=== PATIENT | male | born 1935 | race Caucasian/White ===

== ENCOUNTER → 2016-07-11 | Outpatient (CLI) | payer MEDICARE ==
[2016-07-11 08:45] LABS: CH 28.2; CHCM 32.4; HCT 42.3 % (39.0-53.0); HDW 2.62; HGB 13.6 gm/dL (13.0-17.5); MCH 28.2 pg (25.0-35.0); MCHC 32.2 g/dL (31.0-37.0); MCV 87.5 fL (80.0-100.0); Mean Platelet Volume 7.9; RBC 4.83 m/uL (4.30-5.90); RDW 13.9 % (11.5-15.5); WBC 7.8 k/uL (3.8-10.6)
--- NOTE | 2016-07-11 08:51 | XR ---
EXAMINATION TYPE: XR chest 2V DATE OF EXAM: 07/11/2016 8:40 AM COMPARISON: Prior chest x-ray April 19, 2015 HISTORY: Asbestosis exposure. History of atrial fibri llation. Annual physical. TECHNIQUE: Frontal and lateral views of the chest are obtained. FINDINGS: Calcified pleural plaques are redemonstrated bilaterally. There is no focal air space opaci ty, pleural effusion, or pneumothorax seen. The cardiac silhouette size is within normal limits. Mul tilevel spurring and spine is present. Cholecystectomy clips are redemonstrated. IMPRESSION: Bilateral calcified pleural plaques are presumed on basis of prior asbestos exposure. No acute pulmonary process is seen. No significant change from prior study is noted.
[2016-07-11 09:04] LABS: Appearance,Urine Clear (Clear); Bilirubin,Urine Negative (Negative); Glucose,Urine (UA) Negative (Negative); Ketones,Urine Negative (Negative); Leukocyte Esterase,Urine Negative (Negative); Nitrite,Urine Negative (Negative); PH, Urine 5.5 (5.0-8.0); Protein,Urine Negative (Negative); Specific Gravity,Urine 1.017 (1.001-1.035); UA Billing (MACRO vs. MICRO) CHEM; Urobilinogen,Urine <2.0 mg/dL (<2.0)
[2016-07-11 09:20] LABS: ALT 21 U/L (21-72); AST 24 U/L (17-59); Alkaline Phosphatase 69 U/L (38-126); Anion Gap 9 mmol/L; Blood Urea Nitrogen 18 mg/dL (9-20); Calcium 9.5 mg/dL (8.4-10.2); Carbon Dioxide 30 mmol/L (22-30); Chloride 105 mmol/L (98-107); Cholesterol 157 mg/dL (<200); Glucose 99 mg/dL (74-99); HDL Cholesterol 56 mg/dL (40-60); Non-African American GFR(MDRD) >60 (>60 ml/min/1.73 sqM); Sodium 144 mmol/L (137-145); Total Bilirubin 0.7 mg/dL (0.2-1.3); Total Protein 7.5 g/dL (6.3-8.2); Triglycerides 160 mg/dL (<150)
== END | disposition home or self-care (01) ==
LOC: LABWHC1 07:37
PROVIDERS: ATTEND Internal Medicine
DX: Z00.00 Encounter for general adult medical examination without abnormal findings (principal); I11.9 Hypertensive heart disease without heart failure; E78.2 Mixed hyperlipidemia; R35.0 Frequency of micturition
CPT/HCPCS: 36415; 71020; 80053; 80061; 81003; 84439; 84443; 85027

== ENCOUNTER → 2016-10-25 | Outpatient (CLI) | payer MEDICARE ==
[2016-10-25 07:20] LABS: Basophils % (A) 1 %; CH 27.9; CHCM 32.2; Eosinophils # (A) 0.4 k/uL (0-0.7); Eosinophils % (A) 5 %; HCT 42.6 % (39.0-53.0); HDW 2.67; HGB 13.9 gm/dL (13.0-17.5); Luc # (Auto) 0.19; Luc % (Auto) 2; Lymphocytes # (A) 1.7 k/uL (1.0-4.8); Lymphocytes % (A) 21 %; MCH 28.6 pg (25.0-35.0); MCHC 32.8 g/dL (31.0-37.0); MCV 87.2 fL (80.0-100.0); Mean Platelet Volume 7.3; Monocytes # (A) 0.5 k/uL (0-1.0); Monocytes % (A) 6 %; Neutrophils # (A) 5.2 k/uL (1.3-7.7); Neutrophils % (A) 65 %; RBC 4.88 m/uL (4.30-5.90); RDW 13.9 % (11.5-15.5); WBC (Perox) 8.53
[2016-10-25 07:22] LABS: Appearance,Urine Clear (Clear); Bilirubin,Urine Negative (Negative); Glucose,Urine (UA) Negative (Negative); Ketones,Urine Negative (Negative); Leukocyte Esterase,Urine Negative (Negative); Mucus,Urine Few /hpf; Nitrite,Urine Negative (Negative); PH, Urine 5.5 (5.0-8.0); Particle Count 2957; Protein,Urine Negative (Negative); RBC,Urine <1 /hpf (0-5); Specific Gravity,Urine 1.012 (1.001-1.035); Squamous Epithelial Cell,Urine 1 /hpf (0-4); UA Billing (MACRO vs. MICRO) MICRO; Urobilinogen,Urine <2.0 mg/dL (<2.0); WBC,Urine 1 /hpf (0-5)
[2016-10-25 07:39] LABS: Anion Gap 12 mmol/L; Blood Urea Nitrogen 14 mg/dL (9-20); Calcium 9.1 mg/dL (8.4-10.2); Carbon Dioxide 21 mmol/L (22-30); Chloride 110 mmol/L (98-107); Glucose 101 mg/dL (74-99); Non-African American GFR(MDRD) >60 (>60 ml/min/1.73 sqM); Potassium 4.5 mmol/L (3.5-5.1); Sodium 143 mmol/L (137-145)
== END | disposition home or self-care (01) ==
LOC: LABWHC1 06:56
PROVIDERS: ATTEND Internal Medicine
DX: Z01.812 Encounter for preprocedural laboratory examination (principal)
CPT/HCPCS: 36415; 80048; 81001; 85025

== ENCOUNTER → 2016-11-05 | Outpatient (CLI) | payer MEDICARE ==
[2016-11-05 15:05] LABS: INR 1.5 (<1.2); Prothrombin Time 15.1 sec (9.0-12.0)
== END | disposition home or self-care (01) ==
LOC: LABPAT 14:46
PROVIDERS: ATTEND Internal Medicine
DX: Z01.812 Encounter for preprocedural laboratory examination (principal)
CPT/HCPCS: 85610; 85730

== ENCOUNTER 2016-11-08 12:30 | Inpatient (IN) | payer MEDICARE ==
[~2016-11-08 12:30] MED LIST: DEXAMETHASONE SOD PHOSPHATE 10 MG/ML 1 ML VIAL IV ONE; HYDROmorphone 1 MG/ML 1 ML SYRINGE IVP PRN; LACTATED RINGERS 1,000 ML IV SCH; ONDANSETRON 4 MG/2 ML VIAL IVP ONE; ceFAZolin 2 GM in SODIUM CHLORIDE 0.9% 100 ML IVPB ONE
[2016-11-08] MEDS ORDERED: LIDOCAINE 1% 20 ML VIAL (10MG/ML) FOR IV START INTRADERMA ONE (15:25)
[2016-11-08 15:40] LABS: INR 1.1 (<1.2); Prothrombin Time 10.9 sec (9.0-12.0)
[2016-11-08] MEDS ORDERED: MIDAZOLAM 2 MG/2 ML VIAL ONE (16:37)
[2016-11-08] MEDS ORDERED: fentaNYL (PF) 50 MCG/ML 2 ML AMP ONE (16:37)
[2016-11-08] MEDS ORDERED: LIDOCAINE 1% INJ 10MG/ML (20 ML MDV) ONE (16:37)
[2016-11-08] MEDS ORDERED: BUPIVACAIN-EPI 0.5%-1:200,000 30 ML VIAL ONE (16:37)
[2016-11-08] MEDS ORDERED: HYDROmorphone (PF) 1 MG/ML ONE (16:37)
[2016-11-08] MEDS ORDERED: PROPOFOL 10 MG/ML 20 ML VIAL IV ONE (16:37)
[2016-11-08] MEDS ORDERED: SUCCINYLCHOLINE CHLORIDE 100 MG/5 ML SYR IV ONE (16:37)
[2016-11-08] MEDS ORDERED: ceFAZolin 1,000 MG in SODIUM CHLORIDE 0.9% 1,000 ML IRRIGATION ONE (17:10)
[2016-11-08] MEDS ORDERED: METOCLOPRAMIDE 5 MG/ML 2 ML VIAL IVP PRN (17:21)
[2016-11-08] MEDS ORDERED: HYDROmorphone 1 MG/ML 1 ML SYRINGE IVP PRN ×3 (17:21)
[2016-11-08] MEDS ORDERED: SENNOSIDES-DOCUSATE SODIUM 1 EACH TAB PO PRN (17:21)
[2016-11-08] MEDS ORDERED: HYDROcodone/APAP 5-325MG 1 EACH TAB PO PRN ×2 (17:21)
[2016-11-08] MEDS ORDERED: PROCHLORPERAZINE SUPPOSITORY 25 MG SUPP RECTAL PRN (17:21)
[2016-11-08] MEDS ORDERED: ONDANSETRON 4 MG/2 ML VIAL IVP PRN (17:21)
[2016-11-08] MEDS ORDERED: diphenhydrAMINE 25 MG CAP PO PRN (17:21)
[2016-11-08] MEDS ORDERED: TEMAZEPAM 15 MG CAP PO PRN (17:21)
[2016-11-08] MEDS ORDERED: hydrOXYzine PAMOATE 25 MG CAP PO PRN (17:21)
[2016-11-08] MEDS ORDERED: LACTATED RINGERS 1,000 ML IV SCH (17:30)
[2016-11-08] MEDS ORDERED: LACTATED RINGERS 1,000 ML IV ONE (18:25)
--- NOTE | 2016-11-08 19:44 | P.OP ---
Date of Procedure: 11/08/16 Preoperative Diagnosis: Right posttraumatic ankle arthritis Postoperative Diagnosis: Same Procedure(s) Performed: 1. Right ankle fusion 2. Right ankle hardware removal 3. Right percutaneous tendo Achilles lengthening Implants: Anesthesia: SHERIE Surgeon: Tani Pisano Editor News #1: Adelso Duran Estimated Blood Loss (ml): 25 IV fluids (ml): 900 Pathology: none sent Condition: stable Disposition: PACU Indications for Procedure: The patient is an 80-year-old male with a long-standing history of problems with his right ankle. Many years ago he sustained an ankle fracture that was fixed with surgery. He has gone on to develop posttraumatic arthritis. He has had subsequent hardware removal but still had 1 screw and a broken screw in his tibia. He has had many years of nonsurgical treatment including activity modification, NSAID medication, bracing, and injections. His pain became refractory to nonsurgical treatment and he requested surgery. I do lengthy discussion with him on operative treatment of end-stage arthritis. We discussed both ankle replacement and ankle fusion. Clinically the patient had very little motion of his ankle. He had diffuse anterior pain. He had no evidence of subtalar arthritis clinically or radiographically. Due to the extent of the patient's arthritis, lack of motion, and broken hardware my recommendation was to perform an ankle fusion. The patient agreed to this. We discussed the potential risks and complication of surgery including but not limited to risks from anesthesia, risk of superficial infection, risk of deep infection, risk of delayed wound healing, risk of wound necrosis, risk of intraoperative fracture, risk of postoperative fracture, risk of nonunion of the fusion site, risk of malunion of the fusion site, risk of chronic pain, risk of chronic swelling, risk of damage to local nerves resulting in temporary or permanent numbness, risk of damage to neurovascular structures resulting in loss of blood flow to the foot, risk of adjacent joint arthritis, risk of generalized to satisfaction with surgery, risk of need for further surgery, risk of difficulty ambulating, risk of inability to regain preinjury level of function, risk of postoperative medical complications including DVT and possibly fatal PE, and even or amputation. The patient provided his verbal and written consent to go forward with surgery. Operative Findings: Description of Procedure: The patient was identified in preoperative holding and the correct right leg was marked with my initials. Reviewed the patient's consent form with him and his family. All of their questions were answered. The patient was then brought back to the operating room. He was positioned on the operating table and a general anesthetic and preoperative antibiotics were administered. A bump was placed under his right leg internally rotating it. His left leg was secured to the table with foam and tape. A tourniquet was applied to the proximal aspect of his right thigh. A ramp was placed under his right leg. His right leg was then prepped and draped in the standard sterile fashion. Prior to starting surgery timeout was performed identifying the correct patient , operative extremity, and procedure. The patient's leg was then elevated, exsanguinated with an Esmarch bandage, the tourniquet was inflated to 250 mmHg. I began by performing a percutaneous tendo Achilles lengthening to help in positioning of the foot. Beginning 2 cm proximal to the Achilles insertion on the posterior tuberosity a 15 blade scalpel was inserted into the midline of the Achilles tendon and the medial half of the tendon was incised. The knife was withdrawn and advanced 2 cm and inserted into the mid line of the Achilles tendon and the lateral half of the tendon was incised. The knife was withdrawn advanced 2 cm and inserted into the midline of the Achilles tendon and the medial half of the tendon was incised. The ankle was then gently dorsiflexed and there is a slight increase in dorsiflexion. The patient's prior incision over the lateral aspect of the ankle was marked out with a marking pen. Skin incision was made with a 15 blade scalpel and dissection was carried down carefully to the fibula. Dissection was carried anteriorly over the fibula. Baby Becky retractors were placed anteriorly and posteriorly over the proximal fibula just proximal to the syndesmosis. A microsagittal saw was used to create an oblique cut in the fibula. The anterior syndesmotic ligament and capsule were sharply transected with a knife and the fibula was booked open evening the posterior soft tissues intact. The medial third of the fibula was cut with a microsagittal saw in the sagittal plane and passed off to the back table to use as bone graft. The anterior soft tissue in front of the ankle joint was carefully debrided exposing the anterior aspect of the joint. There were several large anterior osteophytes which were removed with a Min. K wires were placed in the talus and tibia and a distractor was used to open the joint. On inspection of the joint there was almost complete loss of cartilage on both the exposed talus and tibia. Using a series of curettes and osteotomes the remaining cartilage was removed until subchondral bone was reached. A bur was used to create several divots in the exposed bone to help facilitate fusion. Attention was then turned medially. A small stab incision was made over the tip of the medial malleolus. The medial screw was identified, exposed and removed. Attention was then turned back to the joint. A 2.0 mm drill bit was used to perforate the talar head and tibial plafond to help facilitate bleeding for fusion. The fibula bone was then morselized and packed into the joint. Augment was also mixed and packed into the joint. The joint was then positioned for fusion. I attempted to place the ankle joint in neutral dorsiflexion, neutral rotation with the second toe lining up with the tibia and slight hindfoot valgus. Once I was happy with the position of the ankle and foot a K wire was driven from the medial malleolus into the talus. At this point I proceeded to place solid 4.5 mm screws to help with our fusion. Using a 4.5 mm drill bit a gliding hole was made over the anterolateral aspect of the tibia. A 3.2 mm drill bit was used to create a threaded hole in the talus. A fully threaded 4.5 mm screw was placed generating excellent compression across the joint. I then made a stab incision over the proximal aspect of the medial malleolus. A 4.5 bit was used to create a gliding hole in the medial tibia and a 3.2 mm drill bit was used to greater threaded on the talus. A fully threaded 4.5 mm screw was placed across the joint. Fluoroscopy was then brought in to verify position of the hardware and fusion. The leg was then elevated and a K wire was placed laterally to the Achilles tendon on the posterior cortex the tibia. The K wire was driven through the talar neck. The K wire was measured and a cannulated 7.0 mm screw was placed. At this point fluoro shots were taken verifying position of the hardware and fusion. Remaining bone graft was packed over the lateral aspect of the ankle. The fibula was closed over the wound and a a wire was placed to hold it in place. 4.5 mm screws were placed through the fibula into the tibia and talus. At this point final x-rays were taken including a mortise, lateral, and AP foot. The fusion appeared to be nicely compressed and all of the hardware was in its desired position. There is no violation of the subtalar joint. Clinically the ankle appeared to be in neutral dorsiflexion. The lateral wound was then copiously irrigated. The periosteum over the fibula was closed with interrupted 2-0 Vicryl. The deep subcu was reapproximated using 2- 0 Vicryl. The skin was closed with 3-0 nylon horizontal mattress stitches. The medial incision over the hardware removal was closed with interrupted 3-0 nylon horizontal mattress stitches. The leg was then cleansed and the tourniquet was let down. A sterile dressing consisting of Betadine soaked Adaptic, 4 x 4, and web roll was applied. I verified that all instrument, sponge, and sharp counts were correct. The drapes were taken down and a very well-padded bulky [place] type splint was placed. The patient was then awoken from his anesthetic, transferred from the operating table to the [facility] and brought to PACU encountered the procedure well. Adelso Duran PA-C was required is a skilled library services assistant for patient positioning, surgical exposure, preparation of the fusion, placement of hardware, wound closure, and splinting. Plan: The patient is going to be admitted overnight for pain control and antibiotics. He is to be strictly nonweightbearing on his right leg. He will be treated in the hospital with Lovenox for DVT prophylaxis and will discharge home on aspirin. Internal medicine will be consulted for perioperative medical management
[2016-11-08 21:19] LABS: Basophils % (A) 0 %; CH 28.6; CHCM 31.9; Eosinophils # (A) 0.1 k/uL (0-0.7); Eosinophils % (A) 1 %; HDW 2.54; HGB 13.6 gm/dL (13.0-17.5); Luc # (Auto) 0.03; Luc % (Auto) 0; Lymphocytes # (A) 1.1 k/uL (1.0-4.8); Lymphocytes % (A) 11 %; MCH 29.1 pg (25.0-35.0); MCHC 32.3 g/dL (31.0-37.0); MCV 90.2 fL (80.0-100.0); Mean Platelet Volume 8.3; Monocytes # (A) 0.2 k/uL (0-1.0); Monocytes % (A) 2 %; Neutrophils # (A) 8.5 k/uL (1.3-7.7); Neutrophils % (A) 86 %; RBC 4.66 m/uL (4.30-5.90); RDW 14.1 % (11.5-15.5); WBC 9.9 k/uL (3.8-10.6); WBC (Perox) 10.01
--- NOTE | 2016-11-08 21:49 | XR ---
EXAMINATION TYPE: XR ankle limited RT DATE OF EXAM: 11/08/2016 COMPARISON: NONE HISTORY: right ankle fx 1 min 12 secs fluoro, [address] Pisano in OR for a right ankle fx.
[2016-11-08 22:41] VITALS: BMI 35.2
[2016-11-09] MEDS: ceFAZolin 2 GM in SODIUM CHLORIDE 0.9% 100 ML IVPB SCH ×2 (00:11→08:43)
--- NOTE | 2016-11-09 07:59 | FL ---
Fluoroscopy History: right ankle fx 1 min 12 secs fluoro, [address] Pisano in OR for a right ankle fx. images scanned unde r ankle order.
--- NOTE | 2016-11-09 08:04 | P.PN ---
Subjective The patient is doing well and his pain is adequately controlled. He denies chest pain or shortness of breath. Objective - Vital Signs Vital signs: Vital Signs Temp 97.3 F L 11/09/16 01:59 Pulse 88 11/09/16 01:59 Resp 16 11/09/16 01:59 BP 120/64 11/09/16 01:59 Pulse Ox 94 L 11/09/16 01:59 Intake & Output 11/08/16 11/09/16 11/09/16 18:59 06:59 18:59 Intake Total 1201 1690 Output Total 25 Balance 1176 1690 Weight 102 kg Intake: IV 1201 200 Intake, IV Titration 900 Amount Lactated Ringers 1,000 ml 800 @ 100 mls/hr IV .Q10H KARL Rx#:[id number] ceFAZolin 2 gm In Sodium 100 Chloride 0.9% 100 ml @ 100 mls/hr IVPB Q8HR KARL Rx#:[id number] Oral 590 Output: Estimated Blood Loss 25 Other: Voiding Method Urinal - Exam The patient is in no apparent distress and is alert and oriented 3. A focused examination of the right lower extremity was conducted. On inspection of the right leg there is a bulky [place] splint in place. There is a moderate amount of blood along the lateral aspect of the splint. The toes are warm and well perfused with brisk capillary refill. Sensation is intact to light touch at the tip of the toes. The patient is able to actively plantarflex and dorsiflex his toes - Labs CBC & Chem 7: 11/08/16 21:05 Labs: Abnormal Lab Results - Last 24 Hours (Table) 11/08/16 Range/Units 21:05 Neutrophils # 8.5 H (1.3-7.7) k/uL Assessment and Plan Plan: Postoperative day #1 status post right ankle fusion for posttraumatic arthritis 1. Strict non-weightbearing operative extremity 2. Keep splint clean and dry. The overlying ANA wrap was taken down and ABDs and a new ANA wrap was applied. Reinforce dressing as needed. 3. 2 doses of postoperative antibiotics 4. DVT prophylaxis with Lovenox and can resume home anti-coagulation 5. Bone health labs pending 6. Can discharge home when pain controlled and passes PT.
[2016-11-09] MEDS ORDERED: ENOXAPARIN 40 MG/0.4 ML SYRINGE SQ SCH (09:00)
[2016-11-09 09:32] VITALS: BP 140/64; PULSE 84; RESP 15; TEMP 97.6
--- NOTE | 2016-11-09 11:22 | P.DS ---
Providers Date of admission: 11/08/16 14:16 Expected date of discharge: 11/09/16 Attending physician: Tani Pisano Primary care physician: Mikael Hernandez - Discharge Diagnosis(es) (1) Ankle arthritis Patient was admitted to the OR on 11/08/2016 to undergo right ankle arthrodesis and Achilles lengthening. He had failed conservative measures as an outpatient and desired to proceed with elective surgery after given informed consent. He underwent the above procedure which hhe tolerated well without complication. Postoperative hospital course has remained without complication. On day of discharge she is afebrile, vital signs stable, labs within acceptable ranges, tolerating by mouth meds and diet, voiding without difficulty, positive flatus, denies abdominal pain or calf pain, and pain controlled on oral pain medication and has no new complaints. Review of systems is negative for fever, chills, chest pain, shortness breath, nausea, vomiting, dizziness, headaches, slurred speech or other Current Visit: Yes Status: Acute Priority: Medium Procedures: Arthrodesis right ankle, Achilles lengthening Patient Condition at Discharge: Good Plan - Discharge Summary New Discharge Prescriptions: New Calcium Carbonate 500 mg PO TID #90 tablet Cholecalciferol [Vitamin D3] 2,000 unit PO DAILY #30 tablet Aspirin 325 mg PO BID #60 tab Docusate [Colace] 100 mg PO BID #60 capsule HYDROcodone/APAP 5-325MG [[place] 5-325] 1 tab PO Q4HR PRN #40 tab PRN Reason: Pain No Action Warfarin [Coumadin] 5 mg PO SUMOTUWETHSA Lovastatin [Mevacor] 20 mg PO HS Lisinopril 40 mg PO HS Warfarin [Coumadin] 2.5 mg PO FR Multivitamins, Thera [Multivitamin (formulary)] 1 tab PO DAILY Carvedilol [Coreg] 4.6875 mg PO BID Aspirin [Adult Low Dose Aspirin EC] 81 mg PO DAILY Discharge Medication List Lisinopril 40 mg PO HS 04/18/14 [History] Lovastatin [Mevacor] 20 mg PO HS 04/18/14 [History] Warfarin [Coumadin] 5 mg PO SUMOTUWETHSA 04/18/14 [History] Carvedilol [Coreg] 4.6875 mg PO BID 05/05/15 [History] Multivitamins, Thera [Multivitamin (formulary)] 1 tab PO DAILY 05/05/15 [History ] Warfarin [Coumadin] 2.5 mg PO FR 05/05/15 [History] Aspirin [Adult Low Dose Aspirin EC] 81 mg PO DAILY 05/10/15 [History] Aspirin 325 mg PO BID #60 tab 11/09/16 [Rx] Calcium Carbonate 500 mg PO TID #90 tablet 11/09/16 [Rx] Cholecalciferol [Vitamin D3] 2,000 unit PO DAILY #30 tablet 11/09/16 [Rx] Docusate [Colace] 100 mg PO BID #60 capsule 11/09/16 [Rx] HYDROcodone/APAP 5-325MG [[place] 5-325] 1 tab PO Q4HR PRN #40 tab 11/09/16 [Rx] Follow up Appointment(s)/Referral(s): Tani Pisano MD [Medical Doctor] - 2 Weeks Activity/Diet/Wound Care/Special Instructions: 1. Strict non-weight bearing on your right leg 2. Use crutches, a knee scooter or a walker to ambulate 3. Keep splint clean and dry 4. Keep leg elevated as much as possible 5. Follow-up in office 2 weeks after surgery Discharge Disposition: HOME SELF-CARE
== END 2016-11-09 11:40 | disposition home or self-care (01) | DRG 494 ==
LOC: 2ORMAIN 14:16 → 3SUR 19:48
PROVIDERS: ADMIT Orthopaedic Surgery; ATTEND Orthopaedic Surgery
PROC: 0QBJ0ZZ Excision of Right Fibula, Open Approach (ICD-10-PCS; 2016-11-08)
PROC: 0SGF04Z Fusion of Right Ankle Joint with Internal Fixation Device, Open Approach (ICD-10-PCS; 2016-11-08)
PROC: 0L8N3ZZ Division of Right Lower Leg Tendon, Percutaneous Approach (ICD-10-PCS; 2016-11-08)
PROC: 0YP90YZ Removal of Other Device from Right Lower Extremity, Open Approach (ICD-10-PCS; 2016-11-08)
PROC: 0SGF07Z Fusion of Right Ankle Joint with Autologous Tissue Substitute, Open Approach (ICD-10-PCS; principal; 2016-11-08 15:30)
DX: M19.171 Post-traumatic osteoarthritis, right ankle and foot (principal); I48.0 Paroxysmal atrial fibrillation; I44.7 Left bundle-branch block, unspecified; I10 Essential (primary) hypertension; M25.771 Osteophyte, right ankle; I25.10 Atherosclerotic heart disease of native coronary artery without angina pectoris; E78.5 Hyperlipidemia, unspecified; R26.81 Unsteadiness on feet; Z90.49 Acquired absence of other specified parts of digestive tract; Z96.652 Presence of left artificial knee joint; Z82.49 Family history of ischemic heart disease and other diseases of the circulatory system; Z79.01 Long term (current) use of anticoagulants; Z79.82 Long term (current) use of aspirin; Z79.899 Other long term (current) drug therapy; Z95.5 Presence of coronary angioplasty implant and graft; Z87.891 Personal history of nicotine dependence; Z87.19 Personal history of other diseases of the digestive system; Z18.89 Other specified retained foreign body fragments
CPT/HCPCS: 82306; 85025; 85610; 85730

== ENCOUNTER 2016-11-14 05:40 | Inpatient (IN) | payer MEDICARE ==
--- NOTE | 2016-11-14 06:18 | ED ---
General Adult HPI - General Chief complaint: GI Bleed Stated complaint: Blood in stool Time Seen by Provider: 11/14/16 06:05 Source: patient, RN notes reviewed Mode of arrival: wheelchair Limitations: no limitations - History of Present Illness Initial comments: Patient is a pleasant 81-year-old male presenting to the emergency department complaining of rectal bleeding. Onset was prior to arrival. Patient got up to use the bathroom. Patient thought he had diarrhea but the bowl was just blood. Patient feels fine otherwise. No abdominal pain. No fatigue or dyspnea. Patient may have had similar symptoms once previously associated with a hemorrhoid. - Related Data Home Medications Medication Instructions Recorded Confirmed Lisinopril 40 mg PO HS 04/18/14 11/14/16 Lovastatin [Mevacor] 20 mg PO HS 04/18/14 11/14/16 Warfarin [Coumadin] 5 mg PO SUMOTUWETHSA 04/18/14 11/14/16 Carvedilol [Coreg] 4.6875 mg PO BID 05/05/15 11/14/16 Multivitamins, Thera [Multivitamin 1 tab PO DAILY 05/05/15 11/14/16 (formulary)] Warfarin [Coumadin] 2.5 mg PO FR 05/05/15 11/14/16 Previous Rx's Medication Instructions Recorded Aspirin 325 mg PO BID #60 tab 11/09/16 Calcium Carbonate 500 mg PO TID #90 tablet 11/09/16 Cholecalciferol [Vitamin D3] 2,000 unit PO DAILY #30 tablet 11/09/16 Docusate [Colace] 100 mg PO BID #60 capsule 11/09/16 HYDROcodone/APAP 5-325MG [[place] 1 tab PO Q4HR PRN #40 tab 11/09/16 5-325] Allergies Allergy/AdvReac Type Severity Reaction Status Date / Time No Known Allergies Allergy Verified 11/14/16 05:54 Review of Systems ROS Statement: Those systems with pertinent positive or pertinent negative responses have been documented in the HPI. ROS Other: All systems not noted in ROS Statement are negative. Constitutional: Denies: fever Eyes: Denies: eye pain ENT: Denies: ear pain Respiratory: Denies: cough Cardiovascular: Denies: chest pain Endocrine: Denies: fatigue Gastrointestinal: Reports: hematochezia. Denies: abdominal pain, nausea, vomiting Genitourinary: Denies: dysuria Musculoskeletal: Denies: back pain Skin: Denies: rash Neurological: Denies: weakness Past Medical History Past Medical History: Atrial Fibrillation, Coronary Artery Disease (CAD), Hyperlipidemia, Hypertension, Osteoarthritis (OA), Prostate Disorder, Skin Disorder Additional Past Medical History / Comment(s): SKIN RASH, PSORIASES, PER PAST MED HX-DIVERTICULITS,HEMORRHOIDS,POLYS(BENIGN), OCC REFLUX-NO MEDS, WAS TOLD MANY YEARS AGO HAD CHF.leaky heart valve, murmur,gout, chronic lower back pain History of Any Multi-Drug Resistant Organisms: None Reported Past Surgical History: Appendectomy, Cholecystectomy, Heart Catheterization With Stent, Joint Replacement, Orthopedic Surgery, Tonsillectomy Additional Past Surgical History / Comment(s): 05-09-15 EP STUDY and ablation, other past medical hx includes: LEFT KNEE REPLACEMENT, AUGUSTO CATARACT REMOVED, RT ANKLE SX, HEART CATH X1 STENT 06, ,SEVERAL COLONOSCOPIES, RT ANKLE ORIF HAS PIN IN PLACE Past Anesthesia/Blood Transfusion Reactions: No Reported Reaction Date of Last Stent Placement:: UNKNOWN Past Psychological History: No Psychological Hx Reported Smoking Status: Former smoker Past Alcohol Use History: Rare Past Drug Use History: None Reported - Past Family History Father Family Medical History: Cancer Additional Family Medical History / Comment(s): brain?lung Brother(s) Family Medical History: Cancer Additional Family Medical History / Comment(s): ONE WITH LUNG CA, ONE WITH COLON CA General Exam Limitations: no limitations General appearance: alert, in no apparent distress Head exam: Present: atraumatic Eye exam: Present: normal appearance, PERRL ENT exam: Present: normal oropharynx Neck exam: Present: normal inspection Respiratory exam: Present: normal lung sounds bilaterally Cardiovascular Exam: Present: regular rate, normal rhythm GI/Abdominal exam: Present: soft. Absent: distended, tenderness Rectal exam: Present: bloody stool, other (Probable internal hemorrhoid on exam) Extremities exam: Present: normal inspection Neurological exam: Present: alert Psychiatric exam: Present: normal affect, normal mood Skin exam: Present: normal color Course Vital Signs 11/14/16 11/14/16 11/14/16 05:50 06:21 06:52 Temperature 98.3 F 98.7 F Pulse Rate 90 92 87 Respiratory 18 20 20 Rate Blood Pressure 139/67 133/65 118/66 O2 Sat by Pulse 97 95 95 Oximetry EKG Findings - EKG Comments: EKG Findings:: Normal sinus rhythm 92. AK 128. QRS 144. QT 398. QTC 492. Left axis. Left bundle branch block. No acute ST change. Medical Decision Making - Medical Decision Making Patient reevaluated and updated. Case was discussed with Dr. Hernandez, who will admit his patient. Consult with Dr. Wallace and consult with Dr. Hayes. - Lab Data Result diagrams: 11/14/16 06:06 11/14/16 06:06 Lab Results 11/14/16 11/14/16 11/14/16 Range/Units 06:06 06:06 06:06 WBC 8.6 (3.8-10.6) k/uL RBC 4.43 (4.30-5.90) m/uL Hgb 12.6 L (13.0-17.5) gm/dL Hct 38.3 L (39.0-53.0) % MCV 86.4 (80.0-100.0) fL MCH 28.5 (25.0-35.0) pg MCHC 33.0 (31.0-37.0) g/dL RDW 13.2 (11.5-15.5) % Plt Count 222 (150-450) k/uL Neutrophils % 71 % Lymphocytes % 16 % Monocytes % 5 % Eosinophils % 5 % Basophils % 0 % Neutrophils # 6.1 (1.3-7.7) k/uL Lymphocytes # 1.4 (1.0-4.8) k/uL Monocytes # 0.5 (0-1.0) k/uL Eosinophils # 0.5 (0-0.7) k/uL Basophils # 0.0 (0-0.2) k/uL PT (9.0-12.0) sec INR (<1.2) APTT (22.0-30.0) sec Sodium 143 (137-145) mmol/L Potassium 4.2 (3.5-5.1) mmol/L Chloride 105 (98-107) mmol/L Carbon Dioxide 26 (22-30) mmol/L Anion Gap 12 mmol/L BUN 17 (9-20) mg/dL Creatinine 0.80 (0.66-1.25) mg/dL Est GFR (MDRD) Af Amer >60 (>60 ml/min/1.73 sqM) Est GFR (MDRD) Non-Af >60 (>60 ml/min/1.73 sqM) Glucose 99 (74-99) mg/dL Calcium 9.3 (8.4-10.2) mg/dL Total Bilirubin 0.5 (0.2-1.3) mg/dL AST 22 (17-59) U/L ALT 27 (21-72) U/L Alkaline Phosphatase 63 (38-126) U/L Total Protein 6.8 (6.3-8.2) g/dL Albumin 3.9 (3.5-5.0) g/dL Stool Occult Blood Positive (Negative) 11/14/16 Range/Units 06:06 WBC (3.8-10.6) k/uL RBC (4.30-5.90) m/uL Hgb (13.0-17.5) gm/dL Hct (39.0-53.0) % MCV (80.0-100.0) fL MCH (25.0-35.0) pg MCHC (31.0-37.0) g/dL RDW (11.5-15.5) % Plt Count (150-450) k/uL Neutrophils % % Lymphocytes % % Monocytes % % Eosinophils % % Basophils % % Neutrophils # (1.3-7.7) k/uL Lymphocytes # (1.0-4.8) k/uL Monocytes # (0-1.0) k/uL Eosinophils # (0-0.7) k/uL Basophils # (0-0.2) k/uL PT 14.9 H (9.0-12.0) sec INR 1.5 H (<1.2) APTT 24.9 (22.0-30.0) sec Sodium (137-145) mmol/L Potassium (3.5-5.1) mmol/L Chloride (98-107) mmol/L Carbon Dioxide (22-30) mmol/L Anion Gap mmol/L BUN (9-20) mg/dL Creatinine (0.66-1.25) mg/dL Est GFR (MDRD) Af Amer (>60 ml/min/1.73 sqM) Est GFR (MDRD) Non-Af (>60 ml/min/1.73 sqM) Glucose (74-99) mg/dL Calcium (8.4-10.2) mg/dL Total Bilirubin (0.2-1.3) mg/dL AST (17-59) U/L ALT (21-72) U/L Alkaline Phosphatase (38-126) U/L Total Protein (6.3-8.2) g/dL Albumin (3.5-5.0) g/dL Stool Occult Blood (Negative) Disposition Clinical Impression: Lower GI hemorrhage Disposition: ADMITTED IP TO THIS HOSP Referrals: Mikael Hernandez MD [Primary Care Provider] - 1-2 days Decision Time: 07:16
[2016-11-14 06:35] LABS: Basophils % (A) 0 %; CH 28.1; CHCM 32.7; Eosinophils # (A) 0.5 k/uL (0-0.7); Eosinophils % (A) 5 %; HCT 38.3 % (39.0-53.0); HDW 2.57; HGB 12.6 gm/dL (13.0-17.5); Luc # (Auto) 0.17; Luc % (Auto) 2; Lymphocytes # (A) 1.4 k/uL (1.0-4.8); Lymphocytes % (A) 16 %; MCH 28.5 pg (25.0-35.0); MCV 86.4 fL (80.0-100.0); Mean Platelet Volume 7.4; Monocytes # (A) 0.5 k/uL (0-1.0); Monocytes % (A) 5 %; Neutrophils # (A) 6.1 k/uL (1.3-7.7); Neutrophils % (A) 71 %; RBC 4.43 m/uL (4.30-5.90); RDW 13.2 % (11.5-15.5); WBC 8.6 k/uL (3.8-10.6); WBC (Perox) 8.54
[2016-11-14 06:40] LABS: INR 1.5 (<1.2); Partial Thromboplastin Time 24.9 sec (22.0-30.0); Prothrombin Time 14.9 sec (9.0-12.0)
[2016-11-14 06:44] LABS: ALT 27 U/L (21-72); AST 22 U/L (17-59); Alkaline Phosphatase 63 U/L (38-126); Anion Gap 12 mmol/L; Blood Urea Nitrogen 17 mg/dL (9-20); Calcium 9.3 mg/dL (8.4-10.2); Carbon Dioxide 26 mmol/L (22-30); Chloride 105 mmol/L (98-107); Glucose 99 mg/dL (74-99); Non-African American GFR(MDRD) >60 (>60 ml/min/1.73 sqM); Potassium 4.2 mmol/L (3.5-5.1); Sodium 143 mmol/L (137-145); Total Bilirubin 0.5 mg/dL (0.2-1.3); Total Protein 6.8 g/dL (6.3-8.2)
[2016-11-14] MEDS ORDERED: NALOXONE 0.4 MG/ML 1 ML VIAL IV PRN (06:52)
[2016-11-14] MEDS ORDERED: HYDROmorphone 1 MG/ML 1 ML SYRINGE IVP PRN (09:34)
[2016-11-14] MEDS: SODIUM CHLORIDE 0.9% 1,000 ML IV SCH (09:52)
[2016-11-14] MEDS: ESOMEPRAZOLE 20 MG in SODIUM CHLORIDE 0.9% 50 ML IVPB SCH (09:53)
[2016-11-14 10:25] VITALS: BMI 29.7
[2016-11-14] MEDS ORDERED: CLOBETASOL PROP 0.05% CR 15GM TOPICAL PRN (12:55)
[2016-11-14 13:34] LABS: Basophils % (A) 0 %; CH 28.4; Eosinophils # (A) 0.4 k/uL (0-0.7); Eosinophils % (A) 5 %; HCT 36.4 % (39.0-53.0); HDW 2.55; HGB 11.8 gm/dL (13.0-17.5); Luc # (Auto) 0.22; Luc % (Auto) 3; Lymphocytes # (A) 2.2 k/uL (1.0-4.8); Lymphocytes % (A) 25 %; MCH 28.8 pg (25.0-35.0); MCHC 32.3 g/dL (31.0-37.0); MCV 89.1 fL (80.0-100.0); Mean Platelet Volume 7.9; Monocytes # (A) 0.4 k/uL (0-1.0); Monocytes % (A) 5 %; Neutrophils # (A) 5.4 k/uL (1.3-7.7); Neutrophils % (A) 62 %; RBC 4.09 m/uL (4.30-5.90); RDW 13.9 % (11.5-15.5); WBC 8.7 k/uL (3.8-10.6); WBC (Perox) 8.67
--- NOTE | 2016-11-14 14:25 | P.CRDCN ---
History of Present Illness Consult date: 11/14/16 History of present illness: This is an 81-year-old male who presented to the emergency department this morning with complaints of bright red bleeding per rectum times one. He states he got up to use the bathroom and thought he was going to have a bowel movement but when he looked in the toilet it was all blood. He states he did not see any stool mixed with blood. He had no abdominal pain at the time of the incident, no chest pain, no shortness of breath, no nausea or vomiting. He said he had this happen to him once before many years ago and it was determined to be a hemorrhoid. He also has a history of atrial fibrillation with successful ablation in 2013. He is maintained on Coumadin, lisinopril, lovastatin, carvedilol. Upon examination today he is seen sitting in bed with family at the bedside. He has no complaints of chest pain, shortness of breath , palpitations, dizziness, nausea or vomiting. He states he has not had any further episodes of rectal bleeding nor has he been up to the bathroom. He complains of vague left mid to lower quadrant abdominal pain, nontender. EKG reveals normal sinus mechanism with underlying left bundle branch block. This compared to previous EKGs and it is his baseline. Review of Systems REVIEW OF SYSTEMS: Patient denies any chest discomfort. No shortness of breath. No diaphoresis. He denies headache, dizziness, blurred vision, double vision. No dyspnea on exertion. No nausea, vomiting. No hematochezia. No hematemesis. No syncope. No palpitations. No cough. No recent fever or chills. Denies dysuria or hematuria. No muscle weakness or numbness. Past Medical History Past Medical History: Atrial Fibrillation, Coronary Artery Disease (CAD), Hyperlipidemia, Hypertension, Osteoarthritis (OA), Skin Disorder Additional Past Medical History / Comment(s): PSORIASIS, PER PAST MED HX- DIVERTICULITS, HEMORRHOIDS, POLYS (BENIGN), OCC REFLUX-NO MEDS, WAS TOLD MANY YEARS AGO HAD CHF, leaky heart valve, murmur, gout, chronic lower back pain. History of Any Multi-Drug Resistant Organisms: None Reported Past Surgical History: Appendectomy, Cholecystectomy, Heart Catheterization With Stent, Joint Replacement, Orthopedic Surgery, Tonsillectomy Additional Past Surgical History / Comment(s): 05-09-15 EP STUDY and ablation, other past medical hx includes: LEFT KNEE REPLACEMENT, AUGUSTO CATARACT removed, bilateral lens implants, HEART CATH X1 STENT 2005, SEVERAL COLONOSCOPIES, RT ANKLE ORIF HAS PIN IN PLACE, 11/08/16 RT ANKLE SX. Past Anesthesia/Blood Transfusion Reactions: No Reported Reaction Date of Last Stent Placement:: UNKNOWN Past Psychological History: No Psychological Hx Reported Smoking Status: Former smoker Past Alcohol Use History: Rare Additional Past Alcohol Use History / Comment(s): STARTED AGE [age], QUIT 1970 Past Drug Use History: None Reported - Past Family History Father Family Medical History: Cancer Additional Family Medical History / Comment(s): brain?lung Brother(s) Family Medical History: Cancer Additional Family Medical History / Comment(s): ONE WITH LUNG CA, ONE WITH COLON CA Medications and Allergies Home Medications Medication Instructions Recorded Confirmed Type Lisinopril 40 mg PO HS 04/18/14 11/14/16 History Lovastatin [Mevacor] 20 mg PO HS 04/18/14 11/14/16 History Warfarin [Coumadin] 5 mg PO DAILY 04/18/14 11/14/16 History Carvedilol [Coreg] 4.6875 mg PO BID 05/05/15 11/14/16 History Multivitamins, Thera [Multivitamin 1 tab PO DAILY 05/05/15 11/14/16 History (formulary)] Aspirin [Adult Low Dose Aspirin EC] 162 mg PO DAILY 11/14/16 11/14/16 History Calcium Carbonate 500 mg PO BID 11/14/16 11/14/16 History Cholecalciferol [Vitamin D3] 1,000 unit PO BID 11/14/16 11/14/16 History Clobetasol Propionate [Temovate 1 applic TOPICAL DAILY PRN 11/14/16 11/14/16 History 0.05% Cream] Warfarin [Coumadin] 7.5 mg PO TUFR 11/14/16 11/14/16 History Allergies Allergy/AdvReac Type Severity Reaction Status Date / Time No Known Allergies Allergy Verified 11/14/16 07:37 Physical Exam Vitals: Vital Signs Temp Pulse Pulse Resp BP BP Pulse Ox 11/14/16 08:30 16 11/14/16 08:27 97.8 F 87 16 132/62 99 11/14/16 08:00 98.4 F 84 18 116/62 94 L 11/14/16 07:28 85 136/66 95 11/14/16 06:52 98.7 F 87 20 118/66 95 11/14/16 06:21 92 20 133/65 95 11/14/16 05:50 98.3 F 90 18 139/67 97 Intake and Output 11/13/16 11/14/16 11/14/16 22:59 06:59 14:59 Other: Weight 86.183 kg 86.183 kg Patient Weight 11/15/16 06:59 Weight 86.183 kg PHYSICAL EXAMINATION: This is a 81-year-old male in no apparent distress at the time of my examination. HEENT: Head is atraumatic, normocephalic. Pupils are equal, round. Sclerae anicteric. Conjunctivae are clear. Mucous membranes of the mouth are moist. Neck is supple. There is no jugular venous distention. No carotid bruit is heard. CHEST EXAMINATION: Lungs are clear to auscultation and precussion. No chest wall tenderness is noted on palpation or with deep breathing. HEART EXAMINATION: Regular rate and rhythm, no murmur, no rub, no gallop. S1 and S2 heard ABDOMEN: Soft, nontender, mild vague pain left mid to lower quadrant. Bowel sounds are heard. No organomegaly noted. EXTREMITIES: 2+ peripheral pulses with no evidence of peripheral edema and no calf tenderness noted. NEUROLOGIC EXAMINATION: Patient is awake, alert and oriented x3. Results 11/14/16 13:21 11/14/16 06:06 Cardiac Enzymes 11/14/16 Range/Units 06:06 AST 22 (17-59) U/L Coagulation 11/14/16 Range/Units 06:06 PT 14.9 H (9.0-12.0) sec APTT 24.9 (22.0-30.0) sec CBC 11/14/16 11/14/16 Range/Units 06:06 13:21 WBC 8.6 8.7 (3.8-10.6) k/uL RBC 4.43 4.09 L (4.30-5.90) m/uL Hgb 12.6 L 11.8 L (13.0-17.5) gm/dL Hct 38.3 L 36.4 L (39.0-53.0) % Plt Count 222 229 (150-450) k/uL Comprehensive Metabolic Panel 11/14/16 Range/Units 06:06 Sodium 143 (137-145) mmol/L Potassium 4.2 (3.5-5.1) mmol/L Chloride 105 (98-107) mmol/L Carbon Dioxide 26 (22-30) mmol/L BUN 17 (9-20) mg/dL Creatinine 0.80 (0.66-1.25) mg/dL Glucose 99 (74-99) mg/dL Calcium 9.3 (8.4-10.2) mg/dL AST 22 (17-59) U/L ALT 27 (21-72) U/L Alkaline Phosphatase 63 (38-126) U/L Total Protein 6.8 (6.3-8.2) g/dL Albumin 3.9 (3.5-5.0) g/dL Current Medications Generic Name Dose Route Start Last Admin Trade Name Freq PRN Reason Stop Dose Admin Hydrocodone Bitart/Acetaminophen 1 each 11/14/16 12:55 [place] 5-325 PO Q4HR PRN Pain Atorvastatin Calcium 10 mg 11/14/16 21:00 Lipitor PO HS [facility] Calcium Carbonate/Glycine 500 mg 11/14/16 21:00 Tums PO BID [facility] Carvedilol 4.6875 mg 11/14/16 17:30 Coreg PO BID-W/MEALS [facility] Cholecalciferol 1,000 unit 11/14/16 21:00 Vitamin D3 PO BID [facility] Clobetasol Propionate 1 applic 11/14/16 12:55 Temovate TOPICAL DAILY PRN Itching Docusate Sodium 100 mg 11/14/16 21:00 Colace PO BID [facility] Hydromorphone HCl 1 mg 11/14/16 09:34 11/14/16 09:40 Dilaudid IVP 1 mg Q6HR PRN Administration Pain Esomeprazole Magnesium 20 mg/ 50 mls @ 100 mls/hr 11/14/16 09:00 11/14/16 09: 53 Sodium Chloride IVPB 100 mls/hr DAILY KARL Administration Sodium Chloride 1,000 mls @ 50 mls/hr 11/14/16 07:15 11/14/16 09:52 Saline 0.9% IV 50 mls/hr .Q20H KARL Administration Lisinopril 40 mg 11/14/16 21:00 Zestril PO HS KARL Multivitamins 1 each 11/15/16 12:00 Theragran PO DAILY@1200 KARL Naloxone HCl 0.2 mg 11/14/16 06:52 Narcan IV Q2M PRN Opioid Reversal Intake and Output 11/13/16 11/14/16 11/14/16 22:59 06:59 14:59 Other: Weight 86.183 kg 86.183 kg Patient Weight 11/15/16 06:59 Weight 86.183 kg 11/14/16 13:21 11/14/16 06:06 - EKG Interpretation EKG: sinus rhythm (Left bundle branch block) Assessment and Plan Plan: Assessment 1. Bright red rectal bleed, history of hemorrhoid. 2. History of atrial fibrillation with successful cardioversion, maintained on Coumadin. 3. Essential hypertension. 4. Subtherapeutic INR Plan We will obtain an echocardiogram to assess LV function. Patient should stop aspirin, dual antiplatelet therapy is not recommended due to history of bleeding has been greater than 12 months since treatment. Once patient has been seen and evaluated by surgery and he continues to have no episodes of further bleeding his Coumadin can be resumed. We will continue to follow this patient closely me thank you for allowing us to take part in his care. Nurse Practitioner note has been reviewed, I agree with a documented findings and plan of care. Patient was seen and examined.
--- NOTE | 2016-11-14 15:34 | P.GSCN ---
History of Present Illness Consult date: 11/14/16 Reason for Consult: Rectal bleeding History of present illness: The patient is a 81-year-old man who presented to the emergency department after having rectal bleeding. He got up last night take a pain pill due to some throbbing in his right ankle. He sat Down on the toilet and passed blood. His never done this previously. He has been constipated recently. He had ankle fusion done about one week ago. He's been taking stool softeners. The bowel movement is still been very hard. His last colonoscopy was many years ago and was normal. At that time he was told he didn't have to have another one. No family history of GI malignancy or inflammatory bowel disease. No epigastric pain and heartburn or indigestion. No history of ulcers. He's had no bleeding since last night. He did have a small bowel movement and passed flatus this morning. Review of Systems All systems: negative Past Medical History Past Medical History: Atrial Fibrillation, Coronary Artery Disease (CAD), Hyperlipidemia, Hypertension, Osteoarthritis (OA), Skin Disorder Additional Past Medical History / Comment(s): PSORIASIS, PER PAST MED HX- DIVERTICULITS, HEMORRHOIDS, POLYS (BENIGN), OCC REFLUX-NO MEDS, WAS TOLD MANY YEARS AGO HAD CHF, leaky heart valve, murmur, gout, chronic lower back pain. History of Any Multi-Drug Resistant Organisms: None Reported Past Surgical History: Appendectomy, Cholecystectomy, Heart Catheterization With Stent, Joint Replacement, Orthopedic Surgery, Tonsillectomy Additional Past Surgical History / Comment(s): 05-09-15 EP STUDY and ablation, other past medical hx includes: LEFT KNEE REPLACEMENT, AUGUSTO CATARACT removed, bilateral lens implants, HEART CATH X1 STENT 2005, SEVERAL COLONOSCOPIES, RT ANKLE ORIF HAS PIN IN PLACE, 11/08/16 RT ANKLE SX. Past Anesthesia/Blood Transfusion Reactions: No Reported Reaction Date of Last Stent Placement:: UNKNOWN Past Psychological History: No Psychological Hx Reported Smoking Status: Former smoker Past Alcohol Use History: Rare Additional Past Alcohol Use History / Comment(s): STARTED AGE [age], QUIT 1970 Past Drug Use History: None Reported - Past Family History Father Family Medical History: Cancer Additional Family Medical History / Comment(s): brain?lung Brother(s) Family Medical History: Cancer Additional Family Medical History / Comment(s): ONE WITH LUNG CA, ONE WITH COLON CA Medications and Allergies Home Medications Medication Instructions Recorded Confirmed Type Lisinopril 40 mg PO HS 04/18/14 11/14/16 History Lovastatin [Mevacor] 20 mg PO HS 04/18/14 11/14/16 History Warfarin [Coumadin] 5 mg PO DAILY 04/18/14 11/14/16 History Carvedilol [Coreg] 4.6875 mg PO BID 05/05/15 11/14/16 History Multivitamins, Thera [Multivitamin 1 tab PO DAILY 05/05/15 11/14/16 History (formulary)] Aspirin [Adult Low Dose Aspirin EC] 162 mg PO DAILY 11/14/16 11/14/16 History Calcium Carbonate 500 mg PO BID 11/14/16 11/14/16 History Cholecalciferol [Vitamin D3] 1,000 unit PO BID 11/14/16 11/14/16 History Clobetasol Propionate [Temovate 1 applic TOPICAL DAILY PRN 11/14/16 11/14/16 History 0.05% Cream] Warfarin [Coumadin] 7.5 mg PO TUFR 11/14/16 11/14/16 History Allergies Allergy/AdvReac Type Severity Reaction Status Date / Time No Known Allergies Allergy Verified 11/14/16 07:37 Surgical - Exam Osteopathic Statement: *. No significant issues noted on an osteopathic structural exam other than those noted in the History and Physical/Consult. Vital Signs Temp Pulse Resp BP Pulse Ox 98.3 F 90 18 139/67 97 11/14/16 05:50 11/14/16 05:50 11/14/16 05:50 11/14/16 05:50 11/14/16 05:50 - General well developed, well nourished, no distress - Eyes normal ocular movement - ENT normal mucosa - Neck trachea midline, no lymphadectomy - Respiratory normal expansion, normal respiratory effort, clear to auscultation - Cardiovascular Rhythm: regular Abnormal Heart Sounds: no systolic murmur - Abdomen Abdomen: soft, non tender, bowel sounds, no guarding, no rigid, no rebound, no distended - Psychiatric oriented to time, oriented to person, oriented to place, speech is normal, memory intact Results - Labs 11/14/16 13:21 11/14/16 06:06 Abnormal Lab Results - Last 24 Hours (Table) 11/14/16 11/14/16 11/14/16 Range/Units 06:06 06:06 13:21 RBC 4.09 L (4.30-5.90) m/uL Hgb 12.6 L 11.8 L (13.0-17.5) gm/dL Hct 38.3 L 36.4 L (39.0-53.0) % PT 14.9 H (9.0-12.0) sec INR 1.5 H (<1.2) Diabetes panel 11/14/16 Range/Units 06:06 Sodium 143 (137-145) mmol/L Potassium 4.2 (3.5-5.1) mmol/L Chloride 105 (98-107) mmol/L Carbon Dioxide 26 (22-30) mmol/L BUN 17 (9-20) mg/dL Creatinine 0.80 (0.66-1.25) mg/dL Glucose 99 (74-99) mg/dL Calcium 9.3 (8.4-10.2) mg/dL AST 22 (17-59) U/L ALT 27 (21-72) U/L Alkaline Phosphatase 63 (38-126) U/L Total Protein 6.8 (6.3-8.2) g/dL Albumin 3.9 (3.5-5.0) g/dL Calcium panel 11/14/16 Range/Units 06:06 Calcium 9.3 (8.4-10.2) mg/dL Albumin 3.9 (3.5-5.0) g/dL Pituitary panel 11/14/16 Range/Units 06:06 Sodium 143 (137-145) mmol/L Potassium 4.2 (3.5-5.1) mmol/L Chloride 105 (98-107) mmol/L Carbon Dioxide 26 (22-30) mmol/L BUN 17 (9-20) mg/dL Creatinine 0.80 (0.66-1.25) mg/dL Glucose 99 (74-99) mg/dL Calcium 9.3 (8.4-10.2) mg/dL Adrenal panel 11/14/16 Range/Units 06:06 Sodium 143 (137-145) mmol/L Potassium 4.2 (3.5-5.1) mmol/L Chloride 105 (98-107) mmol/L Carbon Dioxide 26 (22-30) mmol/L BUN 17 (9-20) mg/dL Creatinine 0.80 (0.66-1.25) mg/dL Glucose 99 (74-99) mg/dL Calcium 9.3 (8.4-10.2) mg/dL Total Bilirubin 0.5 (0.2-1.3) mg/dL AST 22 (17-59) U/L ALT 27 (21-72) U/L Alkaline Phosphatase 63 (38-126) U/L Total Protein 6.8 (6.3-8.2) g/dL Albumin 3.9 (3.5-5.0) g/dL Assessment and Plan (1) Rectal bleeding Status: Acute (2) Constipation Status: Acute Plan: This is likely perianal bleeding. Since it's been many years since a previous colonoscopy, I think that needs to be performed. In light of his recent ankle surgery, this could be done in 1-2 months. If he were to develop abdominal pain , nausea or vomiting, recurrent rectal bleeding, this could be performed sooner. He was given a card. We'll follow him up as outpatient.
[2016-11-14] MEDS: CARVEDILOL 3.125 MG TAB PO SCH (18:44)
[2016-11-14] MEDS: CHOLECALCIFEROL 1,000 UNIT TAB PO SCH (20:55)
[2016-11-14] MEDS: CALCIUM CARBONATE 500 MG CHEWABLE PO SCH (20:55)
[2016-11-14] MEDS: HYDROcodone/APAP 5-325MG 1 EACH TAB PO PRN (20:55)
[2016-11-14] MEDS: LISINOPRIL 20 MG TAB PO SCH (20:55)
[2016-11-14] MEDS: DOCUSATE 100 MG CAP PO SCH (20:55)
[2016-11-14] MEDS: ATORVASTATIN 10 MG TAB PO SCH (20:55)
[2016-11-15] MEDS: SODIUM CHLORIDE 0.9% 1,000 ML IV SCH ×2 (05:29→20:49)
[2016-11-15] MEDS: HYDROcodone/APAP 5-325MG 1 EACH TAB PO PRN ×2 (05:33→20:47)
--- NOTE | 2016-11-15 06:51 | HP ---
DATE OF ADMISSION: 11/14/16 CHIEF COMPLAINT: Rectal bleeding. This is an 81 year old white male who was brought to the emergency room because of severe rectal bleeding and the patient felt that he had diarrhea but it was fresh blood that came out and the patient was brought to the emergency room. In the ER, his CBC showed a WBC count of 8.6, hemoglobin 12.6. Platelet count 222,000. His sodium 143, potassium 4.2, BUN 17, creatinine 0.80. The patient was admitted to the hospital for further evaluation and treatment. Her past medical history reveals the patient has history of cardiac arrhythmia, atrial fibrillation, coronary artery disease, hypertensive cardiovascular disease, osteoarthritis, and asbestosis of the lung and the patient has had electrophysiological studies, ambulations and also stent placement in the past. He is also known to have hypertensive cardiovascular disease, hyperlipidemia. Current medications include: 1. Lisinopril 40 mg daily. 2. Lovastatin 20 mg daily. 3. Coumadin 5 mg po daily. 4. Coreg. 5. Aspirin 325 mg po b.i.d. 6. Calcium carbonate 500 mg t.i.d. 7. Vitamin D3 2000 units po daily. 8. Colace 100 mg po b.i.d. 9. [place] 5/325 one q4 hours prn. He had ankle surgery that is healing and he was taking [place] for the pain from that surgery. No known drug allergies. He does not smoke and he does not drink alcohol. FAMILY HISTORY: Strongly positive for cancer and heart disease. REVIEW OF SYSTEMS: The patient denies any headache. Appetite has been good. Bowels he has complaints of rectal bleeding and recently he had a problem with constipation. He has no polyuria or dysuria. He has no neurological symptoms. Physical examination reveals a 81 year old white male well nourished and well developed. He is alert and oriented. He is in no acute distress. There is no jaundice. There is no generalized lymphadenopathy. There are no petechia or bruises. Pulses 76 per minute and regular. Blood pressure 139/67. O2 saturation 97. HEENT: negative. Neck is supple. There is no jugular venous distention. There is no goiter. There is no carotid bruit. Heart is in sinus rhythm. Lungs are clear to auscultation and percussion. Abdomen is soft and nontender. There is no mass palpable. Examination of the lower extremities revealed no pitting edema. Neurological examination does not reveal any localizing signs. IMPRESSION: 1. Acute rectal bleeding. 2. History of cardiac arrhythmia, coronary artery disease and has had a stent placement and ablation in the past. 3. Hypertensive cardiovascular disease. 4. Hyperlipidemia. 5. Degenerative arthritis, multiple joints. 6. History of asbestosis. PLAN: The patient will be admitted to the hospital and we will monitor hemoglobin and hematocrit. The patient will be placed back on his previous home medications except Coumadin and aspirin. We will get surgical consultation, Dr. Reyes has been consulted. The prognosis is guarded. Diagnosis, prognosis and therapeutic plans have been discussed with the patient. NAHED
[2016-11-15] MEDS: CALCIUM CARBONATE 500 MG CHEWABLE PO SCH ×2 (08:00→20:48)
[2016-11-15] MEDS: CARVEDILOL 3.125 MG TAB PO SCH ×2 (08:00→17:36)
[2016-11-15] MEDS: CHOLECALCIFEROL 1,000 UNIT TAB PO SCH ×2 (08:01→20:48)
[2016-11-15] MEDS: DOCUSATE 100 MG CAP PO SCH ×2 (08:01→20:48)
[2016-11-15] MEDS: ESOMEPRAZOLE 20 MG in SODIUM CHLORIDE 0.9% 50 ML IVPB SCH (08:03)
[2016-11-15 09:14] LABS: Basophils % (A) 0 %; CH 28.1; CHCM 31.9; Eosinophils # (A) 0.3 k/uL (0-0.7); Eosinophils % (A) 4 %; HCT 36.4 % (39.0-53.0); HDW 2.54; HGB 11.8 gm/dL (13.0-17.5); Luc # (Auto) 0.12; Luc % (Auto) 2; Lymphocytes # (A) 1.5 k/uL (1.0-4.8); Lymphocytes % (A) 20 %; MCH 28.6 pg (25.0-35.0); MCHC 32.4 g/dL (31.0-37.0); MCV 88.5 fL (80.0-100.0); Mean Platelet Volume 7.3; Monocytes # (A) 0.3 k/uL (0-1.0); Monocytes % (A) 5 %; Neutrophils # (A) 5.3 k/uL (1.3-7.7); Neutrophils % (A) 70 %; RBC 4.11 m/uL (4.30-5.90); RDW 13.1 % (11.5-15.5); WBC 7.6 k/uL (3.8-10.6)
[2016-11-15 09:25] LABS: ALT 28 U/L (21-72); AST 21 U/L (17-59); Alkaline Phosphatase 63 U/L (38-126); Anion Gap 9 mmol/L; Blood Urea Nitrogen 14 mg/dL (9-20); Calcium 8.9 mg/dL (8.4-10.2); Carbon Dioxide 27 mmol/L (22-30); Chloride 104 mmol/L (98-107); Glucose 105 mg/dL (74-99); Non-African American GFR(MDRD) >60 (>60 ml/min/1.73 sqM); Potassium 4.4 mmol/L (3.5-5.1); Sodium 140 mmol/L (137-145); Total Bilirubin 0.4 mg/dL (0.2-1.3); Total Protein 6.5 g/dL (6.3-8.2)
--- NOTE | 2016-11-15 10:21 | ECHOF ---
Referral Reason:a fib MEASUREMENTS -------- HEIGHT: 170.2 cm WEIGHT: 86.2 kg BP: 132/62 RVIDd: 2.4 cm (< 3.3) IVSd: 1.0 cm (0.6 - 1.1) LVIDd: 4.7 cm (3.9 - 5.3) LVPWd: 1.1 cm (0.6 - 1.1) IVSs: 1.4 cm LVIDs: 2.5 cm LVPWs: 1.3 cm LAESV Index (A-L): 20.26 ml/m Ao Diam: 3.8 cm (2.0 - 3.7) AV Cusp: 0.8 cm (1.5 - 2.6) LA Diam: 2.9 cm (2.7 - 3.8) MV EXCURSION: 16.659 mm (> 18.000) MV EF SLOPE: 134 mm/s (70 - 150) EPSS: 0.7 cm MV E Jose: 0.80 m/s MV DecT: 220 ms MV A Jose: 0.56 m/s MV E/A Ratio: 1.44 RAP: 5.00 mmHg RVSP: 10.52 mmHg FINDINGS -------- Atrial fibrillation. This was a technically difficult study with suboptimal views. Pt. not able to turn due to pain. Overall left ventricular systolic function is moderately impaired with, an EF between 35 - 40 %. Basal anteroseptal LV wall motion is hypokinetic. Mid anteroseptal LV wall motion is hypokinetic. Apical septum LV wall motion is hypokinetic. [place] Hypokinesis. The right ventricle is normal in size and function. Normal LA size by volume 22+/-6 ml/m2. The right atrium is normal in size. 1.5mg of Definity was utilized for enhancement of images There is mild to moderate aortic valve sclerosis. There is no evidence of aortic regurgitation. There is no evidence of aortic stenosis. The mitral valve leaflets are mildly thickened. Mild mitral annular calcification present. There is trace to mild mitral regurgitation. Trace tricuspid regurgitation present. There is no evidence of pulmonary hypertension. The right ventricular systolic pressure, as measured by Doppler, is 10.52mmHg. The pulmonic valve was not well visualized. The aortic root size is normal. Normal inferior vena cava with normal inspiratory collapse consistent with estimated right atrial pressure of 5 mmHg. The pericardium is normal. There is no pericardial effusion. CONCLUSIONS -------- 1. Atrial fibrillation. 2. There is mild to moderate aortic valve sclerosis. 3. The mitral valve leaflets are mildly thickened. 4. Mild mitral annular calcification present. 5. There is trace to mild mitral regurgitation. 6. Trace tricuspid regurgitation present. 7. There is no evidence of pulmonary hypertension. 8. The right ventricular systolic pressure, as measured by Doppler, is 10.52mmHg. 9. The pulmonic valve was not well visualized. 10. The aortic root size is normal. 11. There is no pericardial effusion. 12. This was a technically difficult study with suboptimal views. 13. Pt. not able to turn due to pain. 14. Basal anteroseptal LV wall motion is hypokinetic. 15. Mid anteroseptal LV wall motion is hypokinetic. 16. Apical septum LV wall motion is hypokinetic. 17. [place] Hypokinesis. 18. Normal LA size by volume 22+/-6 ml/m2. 19. 1.5mg of Definity was utilized for enhancement of images [employer] DEVELOPER: Brandon Roberson RDCS
[2016-11-15] MEDS: MULTIVITAMINS, THERA 1 EACH TAB PO SCH (11:59)
[2016-11-15] MEDS ORDERED: WARFARIN 7.5 MG TAB PO ONE (12:00)
--- NOTE | 2016-11-15 15:12 | P.PN ---
Subjective This is an 81-year-old male who presented to the emergency department with complaints of bright red bleeding per rectum times one. He states he got up to use the bathroom and thought he was going to have a bowel movement but when he looked in the toilet it was all blood. He states he did not see any stool mixed with blood. He had no abdominal pain at the time of the incident, no chest pain, no shortness of breath, no nausea or vomiting. He said he had this happen to him once before many years ago and it was determined to be a hemorrhoid. He also has a history of atrial fibrillation with successful ablation in 2013. He is maintained on Coumadin, lisinopril, lovastatin, carvedilol. Upon examination today he is seen sitting in bed in no acute distress. He states he has not had a bowel movement since admission and denies any further bleeding. He was evaluated by general surgery yesterday and recommendations have been notes.. Lengthy discussion was had regarding restarting his coumadin. Risks of thromboembolic event were explained to pt with verbalized understanding. Echocardiogram performed yesterday reveals atrial fibrillation with moderately impaired LV function with EF 35-40% with hypokinetic wall motion. Objective - Vital Signs Vital signs: Vital Signs Temp 97.7 F 11/15/16 14:52 Pulse 83 11/15/16 14:52 Resp 18 11/15/16 14:52 BP 118/72 11/15/16 14:52 Pulse Ox 97 11/15/16 14:52 Intake & Output 11/14/16 11/15/16 11/15/16 18:59 06:59 18:59 Intake Total 600 Balance 600 Weight 86.183 kg Intake: Oral 600 Other: Voiding Method Urinal # Voids 1 1 3 # Bowel Movements 1 - Exam GENERAL: Well-appearing, well-nourished and in no acute distress. NECK: Supple without JVD or thyromegaly. LUNGS: Breath sounds clear to auscultation bilaterally and equal. No wheezes, rales or rhonchi. HEART: Regular rate and rhythm without murmurs, rubs or gallops. S1 and S2 heard. ABDOMEN: Soft, nontender, normoactive bowel sounds. EXTREMITIES: Normal range of motion, no edema. No clubbing or cyanosis. Peripheral pulses intact and strong. Cast to right lower extremity. - Labs CBC & Chem 7: 07/28/17 08:15 11/15/16 08:15 Labs: Abnormal Lab Results - Last 24 Hours (Table) 11/15/16 11/15/16 Range/Units 08:15 08:15 RBC 4.11 L (4.30-5.90) m/uL Hgb 11.8 L (13.0-17.5) gm/dL Hct 36.4 L (39.0-53.0) % Glucose 105 H (74-99) mg/dL Assessment and Plan Plan: Assessment 1. Bright red rectal bleed, history of hemorrhoid. 2. History of atrial fibrillation with successful cardioversion, maintained on Coumadin. 3. Essential hypertension. 4. Subtherapeutic INR Plan Echocardiogram revealed the pt was in atrial fibrillation at that time, repeat EKG ordered. Considering there has been no further episodes of bleeding and the patient was seen by general surgery with no recommendation for immediate intervention Coumadin will be reinitiated. Dosing will be adjusted due to a subtherapeutic INR as follows: 7.5 mg by mouth Friday, 5 mg Friday. Aspirin is to remain discontinued. He should have INR drawn in 10 days to evaluate new coumadin dosing. Awaiting results of repeat EKG. We will continue to follow this pt closely. Nurse Practitioner note has been reviewed, I agree with a documented findings and plan of care. Patient was seen and examined.
--- NOTE | 2016-11-15 20:45 | P.PN ---
Subjective This dictation date of service 11/15/2016, first day of service by Audrey Castillo [facility]. Patient seen today and evaluated. Patient seen yesterday by Dr. Mikael Hernandez the attending, who out of town and called me to attend to the patient in his temporary absence. I received a call today from [facility] to indicate that the patient should be admitted as inpatient admission. 81 years old white male conscious alert oriented 3 no acute respiratory distress, he stated that couple days ago he was having severe constipation and stool was heart and he found blood in the stool was red blood at that time he came to the emergency room and the admitted him with lower GI bleeding. Dr. Duarte the surgeon did see him and decided that probably hemorrhoids and he will be having colonoscopy and couple months. Patient has right ankle joint fused on 11/08/[address] Pisano. Patient also has history of ischemic cardiomyopathy he was on Coumadin currently the cardiology restarted his Coumadin back as there is no risk of bleeding at this point, and his presence in the hospital indicating no evidence of bleeding with a bowel movement. His vital sign was stable with temperature 97.7 orally and pulse 83 and respiratory rate 18 nonlabored his blood pressure 118/72 with a mean 87 his pulse ox 97%. Lab showed that his hemoglobin is stable 11.8 with a hematocrit 36.4, platelet count 232 and WBC 7.6. His chemistry indicating the sodium 140 potassium 4.4 chloride 104 carbon dioxide 27, his BUN is 14 and creatinine 0.73 and blood sugar is 105 his estimated glomerular filtration rate more than 60 normal liver function test with normal AST 21 a LT 28 alk phos 63 and total protein 6.5. Exam patient was conscious alert oriented pleasant able to answer the question. HEENT was negative he has denture upper and lower. Neck was supple no JVD no thyromegaly no lymphadenopathy trachea midline. Chest clear to auscultation and percussion no wheezes no rhonchi's Heart he has underlying history of ischemic cardiomyopathy with ejection fraction of 35% with hypokinesia and questionable at [place] fibrillation and he is on anticoagulation with Coumadin at this time and we will be place him on the chip washer to be sure that there is no paroxysmal atrial fibrillation. The abdomen is soft positive bowel sounds no tenderness. Right lower extremities he had a cast with the recent fusion of the ankle by the orthopedic surgeon Dr. Shah. Neurological: Moving 4 extremities no neurodeficit, no lateralizing sign. Assessment #1 rectal bleeding with minimal effect on the hemoglobin and hematocrit currently resolved #2 association with the anticoagulation Coumadin is a possibility. #3 ischemic cardiomyopathy with hypokinesis associated with impaired ejection fraction to 35 % #4 underlying coronary artery disease and atherosclerotic heart disease Continue the anticoagulation with the Coumadin, monitor any rectal bleeding, chip washer to assess if there is any paroxysmal atrial fibrillation. Obtain EKG in a.m. Laboratory also order for PT and INR and CBC with differential and BMP. If the patient stable general condition will be planning for discharge home. Objective - Vital Signs Vital signs: Vital Signs Temp 97.7 F 11/15/16 14:52 Pulse 83 11/15/16 14:52 Resp 18 11/15/16 14:52 BP 118/72 11/15/16 14:52 Pulse Ox 97 11/15/16 14:52 Intake & Output 11/15/16 11/15/16 11/16/16 06:59 18:59 06:59 Other: Voiding Method Urinal # Voids 1 3 # Bowel Movements 1 - Labs CBC & Chem 7: 11/15/16 08:15 11/15/16 08:15 Labs: Abnormal Lab Results - Last 24 Hours (Table) 11/15/16 11/15/16 Range/Units 08:15 08:15 RBC 4.11 L (4.30-5.90) m/uL Hgb 11.8 L (13.0-17.5) gm/dL Hct 36.4 L (39.0-53.0) % Glucose 105 H (74-99) mg/dL
[2016-11-15] MEDS: ATORVASTATIN 10 MG TAB PO SCH (20:48)
[2016-11-15] MEDS: LISINOPRIL 20 MG TAB PO SCH (20:49)
[2016-11-16] MEDS: HYDROcodone/APAP 5-325MG 1 EACH TAB PO PRN ×2 (04:21→11:37)
[2016-11-16 07:22] VITALS: BP 122/60; PULSE 75; RESP 16; TEMP 97.5
[2016-11-16] MEDS: MULTIVITAMINS, THERA 1 EACH TAB PO SCH (08:04)
[2016-11-16] MEDS: DOCUSATE 100 MG CAP PO SCH (08:04)
[2016-11-16] MEDS: CHOLECALCIFEROL 1,000 UNIT TAB PO SCH (08:04)
[2016-11-16] MEDS: CALCIUM CARBONATE 500 MG CHEWABLE PO SCH (08:04)
[2016-11-16] MEDS: CARVEDILOL 3.125 MG TAB PO SCH (08:04)
[2016-11-16 08:12] LABS: Basophils % (A) 1 %; CH 28.4; CHCM 32.2; Eosinophils # (A) 0.3 k/uL (0-0.7); Eosinophils % (A) 5 %; HCT 35.6 % (39.0-53.0); HDW 2.57; HGB 11.7 gm/dL (13.0-17.5); Luc # (Auto) 0.11; Luc % (Auto) 2; Lymphocytes # (A) 1.7 k/uL (1.0-4.8); Lymphocytes % (A) 25 %; MCH 29.2 pg (25.0-35.0); MCHC 32.9 g/dL (31.0-37.0); MCV 88.7 fL (80.0-100.0); Mean Platelet Volume 7.5; Monocytes # (A) 0.4 k/uL (0-1.0); Monocytes % (A) 6 %; Neutrophils # (A) 4.1 k/uL (1.3-7.7); Neutrophils % (A) 62 %; RBC 4.01 m/uL (4.30-5.90); RDW 13.5 % (11.5-15.5); WBC 6.7 k/uL (3.8-10.6)
[2016-11-16 08:16] LABS: INR 1.6 (<1.2); Prothrombin Time 15.2 sec (9.0-12.0)
[2016-11-16 08:42] LABS: Anion Gap 9 mmol/L; Blood Urea Nitrogen 15 mg/dL (9-20); Calcium 8.9 mg/dL (8.4-10.2); Carbon Dioxide 26 mmol/L (22-30); Chloride 106 mmol/L (98-107); Glucose 91 mg/dL (74-99); Non-African American GFR(MDRD) >60 (>60 ml/min/1.73 sqM); Potassium 4.3 mmol/L (3.5-5.1); Sodium 141 mmol/L (137-145)
[2016-11-16] MEDS ORDERED: ASPIRIN 81 MG CHEW PO SCH (09:00)
[2016-11-16] MEDS: ESOMEPRAZOLE 20 MG in SODIUM CHLORIDE 0.9% 50 ML IVPB SCH (09:11)
--- NOTE | 2016-11-16 11:53 | P.DS ---
Providers Date of admission: 11/15/16 10:59 Attending physician: Bo Castillo Consults: 11/14/16 07:14 Consult Physician Urgent Consulting Provider: Stephan Crabtree Consult Reason/Comments: a fib hx Do you want consulting provider notified?: Yes Consult Physician Urgent Consulting Provider: Charlene Reyes Consult Reason/Comments: gi hemorrhage Do you want consulting provider notified?: Yes Primary care physician: Mikael Hernandez This is dictation on the discharge summary date of service 11/16/2016, by Dr. Marianna Ventura [facility] in the temporary absence of Dr. Mikael Hernandez. Final diagnosis: #1 rectal bleeding, seen by Dr. Duarte the surgeon with possible hemorrhoid not actively bleeding with stable hemoglobin and hematocrit. #2 ischemic cardiomyopathy with ejection fraction 35-40% with the hypokinesia by the echocardiogram. #3 recent surgery on his right ankle by orthopedic surgeon Dr. Pisano with the fusion of the ankle. #4 patient on anticoagulant warfarin/Coumadin was interrupted due to the rectal bleeding, currently resumed by cardiology with the underlying subtherapeutic. Presentation to the emergency room: With history of rectal bleeding. Consultation with cardiology as well as surgery Dr. Reyes and his doctors Dr. Crabtree, patient has been checking his PT and INR as outpatient at the Coumadin clinic at the help desk associate with monitoring by Dr. santana. Hospital course: Patient was monitored no evidence of atrial fibrillation was normal sinus rhythm , his Coumadin has been resumed still subtherapeutic and it will take a few days to each the therapeutic level, instructed to recheck his PT and INR next Friday at the Coumadin clinic at the help desk associate. His medication assumed during his hospitalization, no for further complaint and no blood in the stools, no black stools, no generalized weakness and no tachycardia or other arrhythmias. No shortness of breath as well Physical exam on discharge: Conscious alert oriented 3, 2 sons at bedside. HEENT negative Skin no bruises or ecchymosis. Neck was supple no lymphadenopathy no thyromegaly trachea midline. Chest clear to auscultation and percussion. Heart regular sinus with the underlying pacemaker in the left infraclavicular. Versus AICD with the underlying low ejection fraction. And cardiomegaly. Abdomen is soft. No Organ Enlargement. Extremities: He had a cast on the right leg from the foot to upper leg with the recent history of ankle fusion on the right leg which is done on 11/08/[address] iPsano. Patient is using special leg [employer] for ambulation. Orthopedic. Neurologically: Stable no lateralizing sign cranial nerves is normal. Assessment: #1 stable general condition for discharge. #2 discussed with the patient to return to his normal protocol for anticoagulation, he was taken 7.5 mg on Friday and Friday every week and 5 mg daily for the rest of the week and advised to be checked next Friday at Dr. Wallace help desk associate in the Coumadin clinic for follow-up and monitoring. #3 patient has been on chronic use of anticoagulation and understand the risks. #4 follow-up with cardiology, and Dr. Duarte for future colonoscopy. Follow-up with Dr. Mikael Hernandez on 2 weeks when he returned from vacation, however advised to call the office if he has any problem to be seen in my office uncontrolled the return of Dr. Hernandez. #5 continue his current medication. Plan - Discharge Summary New Discharge Prescriptions: No Action Warfarin [Coumadin] 5 mg PO DAILY Lovastatin [Mevacor] 20 mg PO HS Lisinopril 40 mg PO HS Multivitamins, Thera [Multivitamin (formulary)] 1 tab PO DAILY Carvedilol [Coreg] 4.6875 mg PO BID Docusate [Colace] 100 mg PO BID #60 capsule HYDROcodone/APAP 5-325MG [[place] 5-325] 1 tab PO Q4HR PRN #40 tab PRN Reason: Pain Cholecalciferol [Vitamin D3] 1,000 unit PO BID Calcium Carbonate 500 mg PO BID Warfarin [Coumadin] 7.5 mg PO Aspirin [Adult Low Dose Aspirin EC] 162 mg PO DAILY Clobetasol Propionate [Temovate 0.05% Cream] 1 applic TOPICAL DAILY PRN PRN Reason: Itching Discharge Medication List Lisinopril 40 mg PO HS 04/18/14 [History] Lovastatin [Mevacor] 20 mg PO HS 04/18/14 [History] Warfarin [Coumadin] 5 mg PO DAILY 04/18/14 [History] Carvedilol [Coreg] 4.6875 mg PO BID 05/05/15 [History] Multivitamins, Thera [Multivitamin (formulary)] 1 tab PO DAILY 05/05/15 [History ] Docusate [Colace] 100 mg PO BID #60 capsule 11/09/16 [Rx] HYDROcodone/APAP 5-325MG [[place] 5-325] 1 tab PO Q4HR PRN #40 tab 11/09/16 [Rx] Aspirin [Adult Low Dose Aspirin EC] 162 mg PO DAILY 11/14/16 [History] Calcium Carbonate 500 mg PO BID 11/14/16 [History] Cholecalciferol [Vitamin D3] 1,000 unit PO BID 11/14/16 [History] Clobetasol Propionate [Temovate 0.05% Cream] 1 applic TOPICAL DAILY PRN [History] Warfarin [Coumadin] 7.5 mg PO 11/14/16 [History] Follow up Appointment(s)/Referral(s): Stephan Crabtree MD [STAFF PHYSICIAN] - 2 Weeks Charlene Reyes DO [Doctor of Osteopathic Medicine] - (Call the office to schedule a colonoscopy in 1-2 months.) Mikael Hernandez MD [Primary Care Provider] - 2 Weeks
--- NOTE | 2016-11-16 12:09 | P.PN ---
Subjective Principal diagnosis: Atrial fibrillation and rectal bleeding This 87-year-old gentleman with history of chronic atrial fibrillation on Coumadin therapy, was admitted with rectal bleeding. Patient was also on aspirin. Apparently the bleeding has stopped. Patient is taken off the aspirin. He is advised to go back on his standard dose of Coumadin. He'll have a pro time and INR next week. Patient will have follow-up with Dr. Crabtree as an outpatient. He denies any chest pain, shortness of breath, dizziness. Vital signs are stable Objective - Vital Signs Vital signs: Vital Signs Temp 97.5 F L 11/16/16 07:00 Pulse 75 11/16/16 07:00 Resp 16 11/16/16 07:00 BP 122/60 11/16/16 07:00 Pulse Ox 98 11/16/16 07:00 Intake & Output 11/15/16 11/16/16 11/16/16 18:59 06:59 18:59 Intake Total 500 Output Total 1 Balance 499 Weight 90.5 kg Intake: Oral 500 Output: Urine 1 Other: Voiding Method Urinal # Voids 3 1 # Bowel Movements 1 - Exam GENERAL EXAM: Patient is alert and oriented and doesn't appear to be in any acute distress HEENT: Normocephalic. Normal reaction of pupils, equal size, normal range of extraocular motion. No erythema or exudates in the throat. NECK: No masses, no nuchal rigidity. CHEST: No chest wall deformity. LUNGS: Equal air entry with no crackles or wheeze. HEART: S1 and S2 normal with irregular heart sounds ABDOMEN: No hepatosplenomegaly, normal bowel sounds, no guarding or rigidity. SKIN: No rashes CENTRAL NERVOUS SYSTEM: No focal deficits. EXTREMITIES: Patient had wrapping on the right leg - Labs CBC & Chem 7: 11/16/16 07:26 11/16/16 07:26 Labs: Abnormal Lab Results - Last 24 Hours (Table) 11/16/16 11/16/16 Range/Units 07: 07:26 RBC 4.01 L (4.30-5.90) m/uL Hgb 11.7 L (13.0-17.5) gm/dL Hct 35.6 L (39.0-53.0) % PT 15.2 H (9.0-12.0) sec INR 1.6 H (<1.2) Assessment and Plan (1) Chronic atrial fibrillation Status: Acute (2) Lower GI hemorrhage Status: Acute Plan: Patient is clinically stable. Being discharged home. Follow-up with Dr. Crabtree
[2016-11-16] MEDS ORDERED: WARFARIN 5 MG TAB PO SCH (18:00)
[2016-11-16] MEDS ORDERED: WARFARIN 7.5 MG TAB PO SCH (18:00)
[2016-11-19] MEDS ORDERED: WARFARIN 7.5 MG TAB PO SCH (18:00)
[2016-11-19] MEDS ORDERED: WARFARIN 5 MG TAB PO SCH (18:00)
== END 2016-11-16 12:08 | disposition home or self-care (01) | DRG 395 ==
LOC: EC 05:40 → 4MS4W 06:52 → OBSVTOIN 11-15 10:59
PROVIDERS: ADMIT Internal Medicine; ATTEND Internal Medicine
DX: K64.9 Unspecified hemorrhoids (principal); I48.2 Chronic atrial fibrillation; I11.9 Hypertensive heart disease without heart failure; I25.5 Ischemic cardiomyopathy; I44.7 Left bundle-branch block, unspecified; K59.00 Constipation, unspecified; I25.10 Atherosclerotic heart disease of native coronary artery without angina pectoris; E78.5 Hyperlipidemia, unspecified; J61 Pneumoconiosis due to asbestos and other mineral fibers; K21.9 Gastro-esophageal reflux disease without esophagitis; L40.9 Psoriasis, unspecified; N42.9 Disorder of prostate, unspecified; M19.91 Primary osteoarthritis, unspecified site; Z87.891 Personal history of nicotine dependence; Z95.5 Presence of coronary angioplasty implant and graft; Z98.42 Cataract extraction status, left eye; Z98.41 Cataract extraction status, right eye; Z96.1 Presence of intraocular lens; Z79.01 Long term (current) use of anticoagulants; Z79.82 Long term (current) use of aspirin; Z79.899 Other long term (current) drug therapy; Z96.652 Presence of left artificial knee joint
CPT/HCPCS: 36415; 80048; 80053; 82272; 85025; 85045; 85610; 85730; 93005; 93306; 99285

== ENCOUNTER → 2017-07-17 | Outpatient (CLI) | payer MEDICARE ==
[2017-07-17 09:04] LABS: HGB 13.3 gm/dL (13.0-17.5); MCH 27.6 pg (25.0-35.0); MCHC 33.2 g/dL (31.0-37.0); MCV 82.9 fL (80.0-100.0); Platelet Count 236 k/uL (150-450); RBC 4.82 m/uL (4.30-5.90); WBC 6.9 k/uL (3.8-10.6)
[2017-07-17 11:16] LABS: ALT 19 U/L (21-72); AST 23 U/L (17-59); Alkaline Phosphatase 82 U/L (38-126); Anion Gap 14 mmol/L; Blood Urea Nitrogen 18 mg/dL (9-20); Calcium 9.5 mg/dL (8.4-10.2); Carbon Dioxide 25 mmol/L (22-30); Chloride 105 mmol/L (98-107); Cholesterol 146 mg/dL (<200); Glucose 94 mg/dL (74-99); HDL Cholesterol 48 mg/dL (40-60); LDL Cholesterol,Calculated 69 mg/dL (0-99); Potassium 4.9 mmol/L (3.5-5.1); Sodium 144 mmol/L (137-145); Total Bilirubin 0.4 mg/dL (0.2-1.3); Total Protein 7.1 g/dL (6.3-8.2); Triglycerides 146 mg/dL (<150)
[2017-07-17 11:22] LABS: T4, Free (Free Thyroxine) 0.72 ng/dL (0.78-2.19)
[2017-07-17 11:36] LABS: Prostate Specific Antigen 1.74 ng/mL (0.00-4.00)
[2017-07-17 18:48] LABS: Hemoglobin A1C 6.1 % (4.0-6.0)
== END | disposition home or self-care (01) ==
LOC: LABWHC1 07:50
PROVIDERS: ATTEND Internal Medicine
DX: Z00.00 Encounter for general adult medical examination without abnormal findings (principal); I11.9 Hypertensive heart disease without heart failure; E78.2 Mixed hyperlipidemia; R73.9 Hyperglycemia, unspecified; K21.0 Gastro-esophageal reflux disease with esophagitis
CPT/HCPCS: 36415; 80053; 80061; 82272; 83036; 84153; 84439; 84443; 85027

== ENCOUNTER → 2018-08-11 | Outpatient (CLI) | payer MEDICARE ==
[2018-08-11 09:33] LABS: RBC 4.78 m/uL (4.30-5.90)
[2018-08-11 09:34] LABS: HGB 13.3 gm/dL (13.0-17.5); MCH 27.7 pg (25.0-35.0); MCHC 32.4 g/dL (31.0-37.0); MCV 85.7 fL (80.0-100.0); Mean Platelet Volume 7.4; Platelet Count 218 k/uL (150-450); RDW 14.8 % (11.5-15.5)
[2018-08-11 16:31] LABS: Albumin 4.4 g/dL (3.80-4.90); Anion Gap 9.7 mmol/L (4.00-12.00); Calcium 9.4 mg/dL (8.7-10.3); Carbon Dioxide 26.3 mmol/L (21.6-31.8); Globulin 2.2 g/dL (1.6-3.3); LDL Cholesterol,Calculated 68.6 mg/dL (0.0-131.0); Potassium 4.9 mmol/L (3.5-5.5); Total Bilirubin 0.5 mg/dL (0.3-1.2); Total Protein 6.6 g/dL (6.2-8.2); VLDL Calculation 30.4 mg/dL (5.00-40.00)
[2018-08-11 16:45] LABS: T4, Free (Free Thyroxine) 0.8 ng/dL (0.80-1.80)
== END | disposition home or self-care (01) ==
LOC: LABWHC1 08:30
PROVIDERS: ATTEND Internal Medicine
DX: Z00.00 Encounter for general adult medical examination without abnormal findings (principal); I11.9 Hypertensive heart disease without heart failure; I25.10 Atherosclerotic heart disease of native coronary artery without angina pectoris; E78.2 Mixed hyperlipidemia; K21.0 Gastro-esophageal reflux disease with esophagitis; N40.0 Benign prostatic hyperplasia without lower urinary tract symptoms
CPT/HCPCS: 84439; 80061; 80053; 84443; 85027; 82272; 36415; G0103

== ENCOUNTER → 2018-09-10 | Outpatient (CLI) | payer MEDICARE ==
--- NOTE | 2018-09-10 13:15 | XR ---
EXAMINATION TYPE: XR chest 2V DATE OF EXAM: 09/10/2018 COMPARISON: 07/11/2016 INDICATION: Productive cough and morning TECHNIQUE: Frontal and lateral views of the chest are obtained. FINDINGS: The heart size is normal. The pulmonary vasculature is normal. Pleural plaquing is present through the bilateral lung fay. Some calcification appears to be along the diaphragm on the lateral projection. Findings can be compatible with prior asbestos exposure. Fi ndings appear stable from 2017.. IMPRESSION: 1. Stable pleural plaquing likely related to prior asbestos exposure.
== END | disposition home or self-care (01) ==
LOC: RADXRMAIN 10:11
PROVIDERS: ATTEND Internal Medicine
DX: J92.9 Pleural plaque without asbestos (principal); I11.9 Hypertensive heart disease without heart failure
CPT/HCPCS: 71046

== ENCOUNTER → 2019-03-09 | Outpatient (CLI) | payer MEDICARE ==
[2019-03-09 15:06] LABS: HCT 42.7 % (39.0-53.0); HGB 14.1 gm/dL (13.0-17.5); MCV 87.8 fL (80.0-100.0); Mean Platelet Volume 6.4; Platelet Count 257 k/uL (150-450); RBC 4.86 m/uL (4.30-5.90); RDW 13.4 % (11.5-15.5); WBC 7.9 k/uL (3.8-10.6)
[2019-03-09 15:21] LABS: African American GFR (CKD) >90 (>60 ml/min/1.73 sqM); Anion Gap 9 mmol/L; Blood Urea Nitrogen 18 mg/dL (9-20); Carbon Dioxide 29 mmol/L (22-30); Chloride 103 mmol/L (98-107); Non-African American GFR(CKD) 84 (>60 ml/min/1.73 sqM); Potassium 4.9 mmol/L (3.5-5.1); Sodium 141 mmol/L (137-145)
== END | disposition home or self-care (01) ==
LOC: LABPAT 14:07
PROVIDERS: ATTEND Internal Medicine Interventional Cardiology
DX: Z01.812 Encounter for preprocedural laboratory examination (principal); I25.10 Atherosclerotic heart disease of native coronary artery without angina pectoris
CPT/HCPCS: 36415; 80051; 82565; 84520; 85027

== ENCOUNTER → 2019-03-11 | Day surgery (SDC) | payer MEDICARE ==
[2019-03-09 13:46] VITALS: BMI 29.7
[~2019-03-11] MED LIST changes: +ADENOSINE 90 MG in SODIUM CHLORIDE 0.9% 60 ML IVP ONE; +ALPRAZolam 0.25 MG TAB PO PRN; +ALPRAZolam 0.5 MG TAB PO PRN; +ASPIRIN 162 MG PO SCH; +ASPIRIN 325 MG TAB PO STA; +ATORVASTATIN 80 MG TAB PO STA; +CARVEDILOL 3.125 MG TAB PO SCH; +CLOBETASOL PROPIONATE TOPICAL PRN; -DEXAMETHASONE SOD PHOSPHATE 10 MG/ML 1 ML VIAL IV ONE; +HEPARIN SODIUM 1,000 UN/ML (10ML VL) IV ONE; +HEPARIN SODIUM 1,000 UN/ML (10ML VL) ONE; -HYDROmorphone 1 MG/ML 1 ML SYRINGE IVP PRN; +IOPAMIDOL-370 100ML BTL INJ ONE; +IOPAMIDOL-370 125ML BTL INJ ONE; -LACTATED RINGERS 1,000 ML IV SCH; +LIDOCAINE 1% INJ 10MG/ML (20 ML MDV) ONE; +LIDOCAINE 1% INJ 10MG/ML (20 ML MDV) SQ ONE; +LOVASTATIN 20 MG PO SCH; +MULTIVITAMINS, THERA 1 EACH TAB PO SCH; +NITROGLYCERIN 1000MCG/10ML SYRINGE INTRACORON ONE; +NITROGLYCERIN SL TABS 0.4 MG TAB SUBLINGUAL PRN; +NON FORMULARY DRUG (Lisinopril [Lisinopril] 40 MG) PO SCH; +NON FORMULARY DRUG (Ubidecarenone [Co Q-10] 200 MG) PO SCH; -ONDANSETRON 4 MG/2 ML VIAL IVP ONE; +RX INFO: IV CONTRAST WAS GIVEN 1 EACH MISC MISCELLANE PRN; +SODIUM CHLORIDE 0.9% 1,000 ML IV SCH; +SODIUM CHLORIDE 0.9% 1,000 ML in EMPTY BAG 1 BAG IV ONE; +VERAPAMIL 2.5 MG/ML 2 ML AMP ONE; +VERAPAMIL SYRINGE (5 MG/10 ML) INTRAARTER ONE; +WARFARIN 5 MG TAB PO SCH; +WARFARIN 7.5 MG TAB PO SCH; -ceFAZolin 2 GM in SODIUM CHLORIDE 0.9% 100 ML IVPB ONE; +fentaNYL (PF) 50 MCG/ML 2 ML AMP IV ONE; +fentaNYL (PF) 50 MCG/ML 2 ML AMP ONE
[2019-03-11 06:38] VITALS: RESP 18; TEMP 98.3
[2019-03-11 06:44] LABS: Prothrombin Time 10.6 sec (9.0-12.0)
--- NOTE | 2019-03-11 09:28 | CC ---
CARDIAC CATHETERIZATION REPORT Mr. Mckeon is an 83-year-old male with known history of coronary artery disease, status post stenting of the LAD in 2006, history of paroxysmal atrial fibrillation, hypertension, hyperlipidemia, who has been complaining of dyspnea on exertion, had an abnormal myocardial perfusion imaging. He was evaluated by Dr. Crabtree and recommendation made regarding cardiac catheterization. The procedures, risks, and complication were discussed with the patient who is in full understanding and agreement. PROCEDURE: The patient was brought to the research laboratory specialist in a fasting semi-sedated state after receiving fentanyl and Benadryl and achieving moderate conscious sedated state. Using Xylocaine anesthesia and Seldinger technique, a 6-Swedish sheath was introduced in the right radial artery. Selective right and left coronary angiography were performed using 5- Swedish 3.5 bend right and left Timoteo catheter. Multiple views of the coronary artery including camille-axial views were obtained. Following that, 5-Swedish 3.5 bend left FL guiding catheter introduced into the system after stenting the left main, attempt to advance a volcano Doppler flow wire across the LAD were unsuccessful. A 0.014 balanced medium weight J-wire was advanced into the LAD and exchanged over a Super Cross catheter. Subsequently, the volcano wire was introduced and the Super Cross catheter was removed. Subsequently, IFR and FFR were calculated after the infusion of adenosine. After that, the guiding catheter was withdrawn. The sheath was removed. Hemostasis was obtained with deployment of a TR band. There was no immediate complication. Patient was returned to his room in stable condition. Of note, patient received 5000 units of intravenous heparin as well as intra-arterial verapamil. FINDINGS: 1. LEFT MAIN: This is a short size vessel, bifurcating into left circumflex, left anterior descending artery. Left main coronary artery has no evidence of high-grade stenosis. 2. LEFT ANTERIOR DESCENDING ARTERY: This is a large-sized vessel, reaching toward the apex with a wraparound apex segment. The mid segment is stented. In the middle of the stented area, there is a 50% to 60% lesion. The rest of the vessel has no high-grade stenosis. 3. LEFT CIRCUMFLEX: This is a nondominant vessel giving rise to 3 obtuse marginal branches, the second obtuse marginal branch which is moderate in caliber, has a 70% stenosis at the takeoff. The rest of the vessel has no high-grade stenosis. 4. RIGHT CORONARY ARTERY: This is a dominant vessel, large in caliber, bifurcating distally into PDA and posterolateral segment and branches. The right coronary artery in the mid segment has a 40% to 50%. plaque. The rest of the vessel has no high-grade stenosis. 5. IFR of the LAD was 1.8 and FFR 0.91 consistent with non-hemodynamic significant lesion. 6. LEFT VENTRICULOGRAM: Left ventriculogram is not performed. CONCLUSION: 1. Moderate disease involving the mid left anterior descending artery and the mid right coronary artery. 2. Moderate to significant disease in the ostium of the second obtuse marginal branch. 3. Non-hemodynamic significant lesion of the mid left anterior descending artery stent. RECOMMENDATION: In view of finding anatomy, recommend continue medical therapy with aggressive coronary risk modifications being initiated. Those findings and recommendation were discussed with the patient and his family and they are in full understanding and agreement. Duration of procedure is 59 minutes. MMODL / BLAIREN: [id number] /
[2019-03-11 12:01] VITALS: PULSE 65
[2019-03-11 13:28] VITALS: BP 133/66
== END | disposition home or self-care (01) ==
LOC: CATHCVL 05:58
PROVIDERS: ATTEND Internal Medicine Interventional Cardiology
DX: I25.10 Atherosclerotic heart disease of native coronary artery without angina pectoris (principal); T82.855A Stenosis of coronary artery stent, initial encounter; I25.5 Ischemic cardiomyopathy; I45.2 Bifascicular block; I49.5 Sick sinus syndrome; I48.0 Paroxysmal atrial fibrillation; I10 Essential (primary) hypertension; E78.00 Pure hypercholesterolemia, unspecified; E78.5 Hyperlipidemia, unspecified; M54.9 Dorsalgia, unspecified; I73.9 Peripheral vascular disease, unspecified; G72.89 Other specified myopathies; F17.210 Nicotine dependence, cigarettes, uncomplicated; I25.2 Old myocardial infarction; E66.9 Obesity, unspecified; Z68.30 Body mass index [BMI] 30.0-30.9, adult; Z95.5 Presence of coronary angioplasty implant and graft; Z95.0 Presence of cardiac pacemaker; Z79.899 Other long term (current) drug therapy; Z79.82 Long term (current) use of aspirin; Z79.01 Long term (current) use of anticoagulants; Z82.49 Family history of ischemic heart disease and other diseases of the circulatory system
CPT/HCPCS: 93571; 93454; 85610; C1769; C1887; J2001; J3010; J1644; J0153; Q9967 ×2

== ENCOUNTER → 2020-11-06 | Outpatient (CLI) | payer MEDICARE ==
--- NOTE | 2020-11-06 14:32 | XR ---
EXAMINATION TYPE: XR chest 2V DATE OF EXAM: 11/06/2020 COMPARISON: 09/10/2018 INDICATION: Cough congestion TECHNIQUE: Frontal and lateral views of the chest are obtained. FINDINGS: The heart size is normal. The pulmonary vasculature is normal. Pleural plaques are present bilaterally. These were present previously. Some calcification overlies t he diaphragms. IMPRESSION: 1. Pleural plaquing in calcified diaphragms can be compatible with prior asbestos exposure. 2. No acute pulmonary process.
== END | disposition home or self-care (01) ==
LOC: RADXRMAIN 13:33
PROVIDERS: ATTEND Family Medicine
DX: J92.9 Pleural plaque without asbestos (principal)
CPT/HCPCS: 71046

== ENCOUNTER 2021-09-27 12:40 | Inpatient (IN) | payer MEDICARE ==
--- NOTE | 2021-09-27 13:03 | ED ---
General Adult HPI - General Chief complaint: Shortness of Breath Stated complaint: Heart racing Time Seen by Provider: 09/27/21 12:55 Source: patient, RN notes reviewed, old records reviewed Mode of arrival: wheelchair Limitations: no limitations - History of Present Illness Initial comments: This is an 85-year-old male who has past medical history significant for atrial fibrillation. Patient states he comes in today after he saw David Olson and abdominal assessment be admitted. Patient states he's had a two-week history of difficulty breathing and getting substantially worse per patient states it's worse with exertion. Patient denies any increased swelling. Patient denies any fever chills per patient denies any chest pain. Patient denies any palpitations. Patient did have an EKG at [facility] and he was told that this EKG showed atrial fibrillation with rapid ventricular response. Patient denies any lightheadedness or dizziness. Patient denies abdominal pain patient denies nausea vomiting diarrhea. - Related Data Home Medications Medication Instructions Recorded Confirmed Warfarin [Coumadin] 5 mg PO SUTUTH 04/18/14 09/27/21 lisinopriL 40 mg PO HS@1900 04/18/14 09/27/21 Multivitamins, Thera [Multivitamin 1 tab PO DAILY@0700 05/05/15 09/27/21 (formulary)] Aspirin [Adult Low Dose Aspirin EC] 162 mg PO DAILY@0700 11/14/16 09/27/21 Ubidecarenone [Co Q-10] 200 mg PO DAILY@0700 03/09/19 09/27/21 Carvedilol [Coreg] 6.25 mg PO BID@0700,1900 09/27/21 09/27/21 Ferrous Sulfate [Feosol] 325 mg PO DAILY@0700 09/27/21 09/27/21 Lovastatin [Mevacor] 60 mg PO HS@1900 09/27/21 09/27/21 Warfarin [Coumadin] 7.5 mg PO MOWEFRSA 09/27/21 09/27/21 metFORMIN HCL [Glucophage] 500 mg PO DAILY@1200 09/27/21 09/27/21 Allergies Allergy/AdvReac Type Severity Reaction Status Date / Time No Known Allergies Allergy Verified 09/27/21 14:05 Review of Systems ROS Statement: Those systems with pertinent positive or pertinent negative responses have been documented in the HPI. ROS Other: All systems not noted in ROS Statement are negative. Past Medical History Past Medical History: Atrial Fibrillation, Coronary Artery Disease (CAD), Heart Failure, GERD/Reflux, Hyperlipidemia, Hypertension, Osteoarthritis (OA), Skin Disorder Additional Past Medical History / Comment(s): PSORIASIS,HX-DIVERTICULITIS, HEMORRHOIDS, POLYPS (BENIGN), leaky heart valve, murmur, gout, chronic lower back pain. History of Any Multi-Drug Resistant Organisms: None Reported Past Surgical History: Appendectomy, Cardiac Ablation, Cholecystectomy, Heart Catheterization With Stent, Joint Replacement, Orthopedic Surgery, Tonsillectomy Additional Past Surgical History / Comment(s): 05-09-15 EP STUDY and ablation, other past medical hx includes: LEFT KNEE REPLACEMENT, AUGUSTO CATARACT removed, bilateral lens implants, HEART CATH X1 STENT 2005, SEVERAL COLONOSCOPIES, RT ANKLE ORIF HAS [address] WITH FUSION Past Anesthesia/Blood Transfusion Reactions: No Reported Reaction, Motion Sickness Date of Last Stent Placement:: 2005 Past Psychological History: No Psychological Hx Reported Smoking Status: Never smoker Past Alcohol Use History: Rare Past Drug Use History: None Reported - Past Family History Father Family Medical History: Cancer Additional Family Medical History / Comment(s): brain?lung Brother(s) Family Medical History: Cancer Additional Family Medical History / Comment(s): ONE WITH LUNG CA, ONE WITH COLON CA General Exam - General Exam Comments Initial Comments: GENERAL: Patient is well-developed and well-nourished. Patient is nontoxic and well- hydrated and is in no acute distress. ENT: Neck is soft and supple. No significant lymphadenopathy is noted. Oropharynx is clear. Moist mucous membranes. Neck has full range of motion without eliciting any pain. EYES: The sclera were anicteric and conjunctiva were pink and moist. Extraocular movements were intact and pupils were equal round and reactive to light. Eyelids were unremarkable. PULMONARY: Unlabored respirations. Good breath sounds bilaterally. No audible rales rhonchi or wheezing was noted. CARDIOVASCULAR: Patient is tachycardic with an irregular rate and rhythm at about 120 beats a minute ABDOMEN: Soft and nontender with normal bowel sounds. SKIN: Skin is clear with no lesions or rashes and otherwise unremarkable. NEUROLOGIC: Patient is alert and oriented x3. Cranial nerves II through XII are grossly intact. Motor and sensory are also intact. Normal speech, volume and content. Symmetrical smile. MUSCULOSKELETAL: Normal extremities with adequate strength and full range of motion. No lower ex tremity swelling or edema. No calf tenderness. LYMPHATICS: No significant lymphadenopathy is noted PSYCHIATRIC: Normal psychiatric evaluation. Limitations: no limitations Course Vital Signs 09/27/21 12:41 Temperature 97.9 F Pulse Rate 129 H Respiratory 18 Rate Blood Pressure 117/80 O2 Sat by Pulse 100 Oximetry Medical Decision Making - Medical Decision Making EKG shows atrial flutter with rapid ventricular response at 123 bpm QRS is 138 QT interval 322 QTC is 395. Patient's EKG shows left bundle branch block. Patient was placed on a Cardizem drip after giving the patient a Cardizem bolus Chest x-ray shows no acute abnormality. I spoke with Dr. Wesley Olson he wanted the patient admitted I admitted the patient consult cardiology. I wrote admitting orders. - Lab Data Result diagrams: 09/27/21 13:11 09/27/21 13:11 Lab Results 09/27/21 09/27/21 09/27/21 Range/Units 13:11 13:11 13:11 WBC 9.8 (3.8-10.6) k/uL RBC 4.32 (4.30-5.90) m/uL Hgb 12.1 L (13.0-17.5) gm/dL Hct 38.5 L (39.0-53.0) % MCV 89.1 (80.0-100.0) fL MCH 28.0 (25.0-35.0) pg MCHC 31.4 (31.0-37.0) g/dL RDW 14.7 (11.5-15.5) % Plt Count 280 (150-450) k/uL MPV 8.4 Neutrophils % 77 % Lymphocytes % 13 % Monocytes % 5 % Eosinophils % 3 % Basophils % 0 % Neutrophils # 7.5 (1.3-7.7) k/uL Lymphocytes # 1.3 (1.0-4.8) k/uL Monocytes # 0.5 (0-1.0) k/uL Eosinophils # 0.3 (0-0.7) k/uL Basophils # 0.0 (0-0.2) k/uL Hypochromasia Slight PT 24.7 H (9.0-12.0) sec INR 2.5 H (<1.2) APTT 31.7 H (22.0-30.0) sec D-Dimer 0.29 (<0.60) mg/L FEU Sodium 138 (137-145) mmol/L Potassium 5.1 (3.5-5.1) mmol/L Chloride 102 (98-107) mmol/L Carbon Dioxide 27 (22-30) mmol/L Anion Gap 9 mmol/L BUN 24 H (9-20) mg/dL Creatinine 0.74 (0.66-1.25) mg/dL Est GFR (CKD-EPI)AfAm >90 (>60 ml/min/1.73 sqM) Est GFR (CKD-EPI)NonAf 84 (>60 ml/min/1.73 sqM) Glucose 123 H (74-99) mg/dL Plasma Lactic Acid Jurgen (0.7-2.0) mmol/L Calcium 9.1 (8.4-10.2) mg/dL Magnesium 2.2 (1.6-2.3) mg/dL Total Bilirubin 0.5 (0.2-1.3) mg/dL AST 26 (17-59) U/L ALT 16 (4-49) U/L Alkaline Phosphatase 69 (38-126) U/L Troponin I (0.000-0.034) ng/mL NT-Pro-B Natriuret Pep pg/mL Total Protein 7.1 (6.3-8.2) g/dL Albumin 4.1 (3.5-5.0) g/dL 09/27/21 09/27/21 09/27/21 Range/Units 13:11 13:11 13:11 WBC (3.8-10.6) k/uL RBC (4.30-5.90) m/uL Hgb (13.0-17.5) gm/dL Hct (39.0-53.0) % MCV (80.0-100.0) fL MCH (25.0-35.0) pg MCHC (31.0-37.0) g/dL RDW (11.5-15.5) % Plt Count (150-450) k/uL MPV Neutrophils % % Lymphocytes % % Monocytes % % Eosinophils % % Basophils % % Neutrophils # (1.3-7.7) k/uL Lymphocytes # (1.0-4.8) k/uL Monocytes # (0-1.0) k/uL Eosinophils # (0-0.7) k/uL Basophils # (0-0.2) k/uL Hypochromasia PT (9.0-12.0) sec INR (<1.2) APTT (22.0-30.0) sec D-Dimer (<0.60) mg/L FEU Sodium (137-145) mmol/L Potassium (3.5-5.1) mmol/L Chloride (98-107) mmol/L Carbon Dioxide (22-30) mmol/L Anion Gap mmol/L BUN (9-20) mg/dL Creatinine (0.66-1.25) mg/dL Est GFR (CKD-EPI)AfAm (>60 ml/min/1.73 sqM) Est GFR (CKD-EPI)NonAf (>60 ml/min/1.73 sqM) Glucose (74-99) mg/dL Plasma Lactic Acid Jurgen 1.6 (0.7-2.0) mmol/L Calcium (8.4-10.2) mg/dL Magnesium (1.6-2.3) mg/dL Total Bilirubin (0.2-1.3) mg/dL AST (17-59) U/L ALT (4-49) U/L Alkaline Phosphatase (38-126) U/L Troponin I <0.012 (0.000-0.034) ng/mL NT-Pro-B Natriuret Pep 1450 pg/mL Total Protein (6.3-8.2) g/dL Albumin (3.5-5.0) g/dL Critical Care Time Critical Care Time: Yes Total Critical Care Time: 35 Disposition Clinical Impression: Dyspnea, Atrial fibrillation with rapid ventricular response Disposition: ADMITTED IP TO THIS HOSP Referrals: David Olson MD [Primary Care Provider] - 1-2 days Time of Disposition: 17:06
[2021-09-27] MEDS ORDERED: DILTIAZEM DRIP BOLUS FROM BAG 1 MG SOLN IV ONE ×2 (13:19→21:49)
[2021-09-27 13:35] LABS: Basophils % (A) 0 %; Eosinophils # (A) 0.3 k/uL (0-0.7); Eosinophils % (A) 3 %; HCT 38.5 % (39.0-53.0); HGB 12.1 gm/dL (13.0-17.5); Hypochromasia Slight; Lymphocytes # (A) 1.3 k/uL (1.0-4.8); Lymphocytes % (A) 13 %; MCHC 31.4 g/dL (31.0-37.0); MCV 89.1 fL (80.0-100.0); Mean Platelet Volume 8.4; Monocytes # (A) 0.5 k/uL (0-1.0); Monocytes % (A) 5 %; Neutrophils # (A) 7.5 k/uL (1.3-7.7); Neutrophils % (A) 77 %; Platelet Count 280 k/uL (150-450); RBC 4.32 m/uL (4.30-5.90); RDW 14.7 % (11.5-15.5); WBC 9.8 k/uL (3.8-10.6)
[2021-09-27 13:48] LABS: ALT 16 U/L (4-49); African American GFR (CKD) >90 (>60 ml/min/1.73 sqM); Albumin 4.1 g/dL (3.5-5.0); Anion Gap 9 mmol/L; Blood Urea Nitrogen 24 mg/dL (9-20); Calcium 9.1 mg/dL (8.4-10.2); Carbon Dioxide 27 mmol/L (22-30); Chloride 102 mmol/L (98-107); Glucose 123 mg/dL (74-99); Non-African American GFR(CKD) 84 (>60 ml/min/1.73 sqM); Sodium 138 mmol/L (137-145); Total Bilirubin 0.5 mg/dL (0.2-1.3); Total Protein 7.1 g/dL (6.3-8.2)
[2021-09-27] MEDS: DILTIAZEM 125 MG in SODIUM CHLORIDE 0.9% 100 ML IV SCH ×2 (13:54→23:10)
[2021-09-27 13:57] LABS: AST 26 U/L (17-59); Magnesium 2.2 mg/dL (1.6-2.3); Potassium 5.1 mmol/L (3.5-5.1)
[2021-09-27 13:58] LABS: Alkaline Phosphatase 69 U/L (38-126); INR 2.5 (<1.2); Partial Thromboplastin Time 31.7 sec (22.0-30.0); Prothrombin Time 24.7 sec (9.0-12.0)
--- NOTE | 2021-09-27 14:33 | XR ---
EXAMINATION TYPE: XR chest 2V DATE OF EXAM: 09/27/2021 COMPARISON: 11/07/2019 TECHNIQUE: PA and lateral views submitted. HISTORY: Cough FINDINGS: Bilateral calcified pleural plaques similar to the prior exam. Subsegmental bilateral consolidation p leural thickening or effusions. Surgical clips in the abdomen and degenerative change of the spine. D iffuse osteopenia. Arthropathy of the shoulders. No pneumothorax. Coarsened central institution. Calc ification along the pleura. IMPRESSION: 1. 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 2. Bilateral lower lobe infiltrate and small effusion is new from prior exam. Correlate for interstit ial pneumonitis or mild venous congestion.
[2021-09-27] MEDS ORDERED: NITROGLYCERIN SL TABS 0.4 MG TAB SUBLINGUAL PRN (17:07)
[2021-09-27] MEDS ORDERED: WARFARIN 5 MG TAB PO SCH (18:00)
[2021-09-27] MEDS ORDERED: FUROSEMIDE 10 MG/ML 2 ML VIAL IV SCH (18:15)
[2021-09-27] MEDS: ATORVASTATIN 10 MG TAB PO SCH (19:10)
[2021-09-27] MEDS: lisinopriL 20 MG TAB PO SCH (19:10)
[2021-09-27] MEDS: carvediloL 6.25 MG TAB PO SCH (19:10)
[2021-09-27 20:55] LABS: Glucose,Whole Blood 121 mg/dL (75-99)
[2021-09-27] MEDS: SODIUM CHLORIDE 0.9% 1,000 ML IV SCH (22:01)
[2021-09-27] MEDS: FUROSEMIDE 10 MG/ML 2 ML VIAL IV SCH (22:16)
[2021-09-28] MEDS: IPRATROPIUM-ALBUTEROL 3 ML NEB INHALATION PRN (00:18)
--- NOTE | 2021-09-28 00:49 | CT ---
EXAMINATION TYPE: CT chest wo con DATE OF EXAM: 09/27/2021 COMPARISON: None HISTORY: dyspnea CT DLP: 525.5 mGycm Automated exposure control for dose reduction was used. Images obtained from the thoracic inlet to the diaphragm with no contrast There are moderate bilateral pleural effusions. There is dense coronary artery calcification. There i s bronchial cartilage calcification. Heart size is fairly normal. No pericardial effusion. There is s ome atelectasis and infiltrate at the lung bases. No mediastinal adenopathy. Thoracic aorta is intact . No aneurysm. There is pericardial calcification at the left cardiac border. There is mild degenerative spurring in the thoracic spine. Sternum is intact. No compression fracture . The vertebra have Normal alignment. There is extensive pleural calcified plaque around the entire left and right lung fay. There is di aphragmatic pleural plaque. The upper abdominal soft tissues are intact. IMPRESSION: Pleural effusions and extensive calcified pleural plaque. Mild congestive heart failure is possible. Heart is not grossly enlarged. I do not see any soft tissue pleural thickening or loculation of the f luid to suggest empyema or mesothelioma. No suspicious pulmonary mass.
[2021-09-28 01:40] LABS: Glucose,Whole Blood 175 mg/dL (75-99)
[2021-09-28] MEDS ORDERED: ATROPINE SULFATE 0.1 MG/ML 10ML SYRINGE ONE (01:41)
[2021-09-28] MEDS ORDERED: ATROPINE SULFATE 0.1 MG/ML 10ML SYRINGE IV STA (01:44)
[2021-09-28 02:11] LABS: Glucose,Whole Blood 203 mg/dL (75-99)
[2021-09-28] MEDS ORDERED: DOPamine DRIP 250 ML IV ONE (02:14)
[2021-09-28] MEDS ORDERED: SODIUM CHLORIDE 0.9% 1,000 ML IV SCH (02:15)
[2021-09-28] MEDS ORDERED: DOPamine DRIP 800 MG in DEXTROSE/WATER 1 250ML.BAG IV SCH (02:15)
[2021-09-28] MEDS ORDERED: NALOXONE 0.4 MG/ML 1 ML VIAL IV PRN (02:38)
[2021-09-28] MEDS ORDERED: NOREPINEPHRINE 4 MG in SODIUM CHLORIDE 0.9% 250 ML IV SCH (05:30)
[2021-09-28] MEDS ORDERED: ASPIRIN 81 MG PO SCH (07:00)
[2021-09-28] MEDS ORDERED: NON FORMULARY DRUG (Ubidecarenone [Co Q-10] 100 MG Capsule) PO SCH (07:00)
[2021-09-28] MEDS: MULTIVITAMINS, THERA 1 EACH TAB PO SCH (07:00)
[2021-09-28] MEDS: FERROUS SULFATE 325 MG TAB PO SCH (07:01)
[2021-09-28] MEDS ORDERED: ASPIRIN 325 MG TAB PO SCH (09:00)
--- NOTE | 2021-09-28 09:23 | XR ---
EXAMINATION TYPE: XR chest 1V DATE OF EXAM: 09/28/2021 COMPARISON: 09/27/2021 HISTORY: 85 year-old male dyspnea, shortness of breath TECHNIQUE: Single frontal view of the chest is obtained. FINDINGS: Heart borderline enlarged. Bilateral focal pleural opacity suggesting calcified pleural plaques. Mild opacity periphery of the right base. Mild interstitial density. Some improvement in aeration at the left base. IMPRESSION: Similar borderline cardiomegaly. Versus infiltrates effusion suggested though aeration shows improvem ent of the left base. Interstitial densities persist. Correlate for mild CHF with pulmonary vascular congestion. Background of asbestos-related pleural disease.
[2021-09-28] MEDS: SODIUM CHLORIDE 0.9% 1,000 ML IV SCH ×3 (09:29→16:18)
[2021-09-28] MEDS: PANTOPRAZOLE 40 MG/10 ML VIAL IV SCH (09:37)
[2021-09-28] MEDS: carvediloL 6.25 MG TAB PO SCH (09:56)
[2021-09-28 10:02] LABS: INR 2.7 (<1.2); Prothrombin Time 27.3 sec (9.0-12.0)
[2021-09-28 10:03] LABS: Basophils # (A) 0.1 k/uL (0-0.2); Basophils % (A) 0 %; Eosinophils % (A) 0 %; HCT 35.5 % (39.0-53.0); HGB 10.5 gm/dL (13.0-17.5); Hypochromasia Moderate; Lymphocytes # (A) 0.6 k/uL (1.0-4.8); Lymphocytes % (A) 4 %; MCH 27.2 pg (25.0-35.0); MCHC 29.7 g/dL (31.0-37.0); MCV 91.6 fL (80.0-100.0); Mean Platelet Volume 8.7; Monocytes # (A) 1.1 k/uL (0-1.0); Monocytes % (A) 7 %; Neutrophils # (A) 14.4 k/uL (1.3-7.7); Neutrophils % (A) 88 %; Platelet Count 221 k/uL (150-450); RBC 3.87 m/uL (4.30-5.90); RDW 14.2 % (11.5-15.5); WBC 16.3 k/uL (3.8-10.6)
[2021-09-28] MEDS: FUROSEMIDE 10 MG/ML 2 ML VIAL IV SCH (10:05)
[2021-09-28] MEDS ORDERED: FUROSEMIDE 10 MG/ML 4 ML VIAL IV STA (10:13)
[2021-09-28 10:15] LABS: African American GFR (CKD) 57 (>60 ml/min/1.73 sqM); Anion Gap 11 mmol/L; Blood Urea Nitrogen 30 mg/dL (9-20); Calcium 8.5 mg/dL (8.4-10.2); Carbon Dioxide 23 mmol/L (22-30); Chloride 105 mmol/L (98-107); Glucose 139 mg/dL (74-99); Non-African American GFR(CKD) 49 (>60 ml/min/1.73 sqM); Sodium 139 mmol/L (137-145)
--- NOTE | 2021-09-28 10:19 | P.CNPUL ---
History of Present Illness Consult date: 09/28/21 Reason for consult: dyspnea History of present illness: This is a 85-year-old patient got transferred to the intensive care unit because of hypotension ongoing shortness of breath. He usually presented to the emergency department because of worsening shortness of breath and he was found to be in A. fib RVR and he was also decompensated heart failure. He is known to have congestion heart failure, ischemic cardiomyopathy with chronic systolic heart failure due to an ejection fraction of 35-40% based on previous echocardiogram. The patient is also known to have coronary artery disease, chronic atrial fibrillation, hypertension and hyperlipidemia and previous history of psoriasis. The patient undergone previous cardiac ablation's regar ding his atrial fibrillation. He has undergone EP studies in the past. In any rate, the patient came in for worsening shortness of breath and A. fib RVR. The chest x-ray also showed evidence of asbestosis with pleural plaques and decompensated heart failure. The patient underwent a CT angiogram that showed no evidence of any pulmonary embolism and there was moderate-sized bilateral pleural effusion in addition to extensive calcification of the pleura with pleural plaques consistent with asbestosis. His blood work showed a a white cell count of 16.3 with a hemoglobin of 10.5 and a platelet count of 221. The patient is fully anticoagulated with warfarin with an INR of 2.7. His electrode s were normal. ProBNP level was 1450. Electrolytes were stable. Troponins were negative. The patient is currently in the intensive care unit. She is is on oxygen at 5 L per minute nasal cannula. He was started on broad-spectrum antibiotics with IV Rocephin. Note that initially the patient was in A. fib RVR the patient was started on a Cardizem drip. He was transferred to medical floor. He became more short of breath. He was sent over for a CT angiogram. During the process, he was found to be hypotensive and bradycardic. At that point, he was transferred to the intensive care unit, initially was started on dopamine that was stopped and he was later on switched norepinephrine that was running at a dose of 0.1 mcg/kg per minute. The patient is currently off pressors and his been off pressors since 30 minutes. He has no chest pain. He was given a dose of Lasix yesterday 20 mg IV push. Currently is on no diuretics. His cardiac rhythm currently is atrial fibrillation and the rate is currently around 140 and the patient remains off Cardizem since yesterday. Review of Systems Eyes: denies as per HPI, denies blurred vision, denies bulging eye, denies decreased vision, denies diplopia, denies discharge, denies dry eye, denies irritation, denies itching, denies pain, denies photophobia, denies loss of peripheral vision, denies loss of vision, denies tunnel vision/blind spots Ears: deny: decreased hearing, ear discharge, earache, tinnitus Ears, nose, mouth and throat: Reports as per HPI Breasts: absent: as per HPI, gynecomastia Cardiovascular: Reports decreased exercise tolerance, Reports dyspnea on exertion, Reports irregular heart beat Respiratory: Reports dyspnea Gastrointestinal: Reports as per HPI Genitourinary: Reports as per HPI Musculoskeletal: Reports as per HPI Musculoskeletal: absent: ankle pain, ankle stiffness, ankle swelling Integumentary: Reports as per HPI Neurological: Reports as per HPI Psychiatric: Reports as per HPI Endocrine: Reports as per HPI Hematologic/Lymphatic: Reports as per HPI Allergic/Immunologic: Reports as per HPI Past Medical History Past Medical History: Atrial Fibrillation, Coronary Artery Disease (CAD), Heart Failure, Diabetes Mellitus, GERD/Reflux, Hyperlipidemia, Hypertension, Osteoarthritis (OA), Skin Disorder Additional Past Medical History / Comment(s): PSORIASIS,HX-DIVERTICULITIS, HEMORRHOIDS, POLYPS (BENIGN), leaky heart valve, murmur, gout, chronic lower back pain, pt now on metformin but denies he is diabetic History of Any Multi-Drug Resistant Organisms: None Reported Past Surgical History: Ablation, Appendectomy, Cardiac Ablation, Cholecystectomy, Heart Catheterization With Stent, Joint Replacement, Orthopedic Surgery, Tonsillectomy Additional Past Surgical History / Comment(s): 05-09-15 EP STUDY and ablation, other past medical hx includes: LEFT KNEE REPLACEMENT, AUGUSTO CATARACT removed, bilateral lens implants, HEART CATH X1 STENT 2005, SEVERAL COLONOSCOPIES, RT ANKLE ORIF HAS [address] WITH FUSION Past Anesthesia/Blood Transfusion Reactions: No Reported Reaction, Motion Sickness Date of Last Stent Placement:: 2005 Past Psychological History: No Psychological Hx Reported Smoking Status: Never smoker Past Alcohol Use History: Rare Additional Past Alcohol Use History / Comment(s): STARTED AGE 19 1954, QUIT 1970 Past Drug Use History: None Reported - Past Family History Father Family Medical History: Cancer Additional Family Medical History / Comment(s): brain?lung Brother(s) Family Medical History: Cancer Additional Family Medical History / Comment(s): ONE WITH LUNG CA, ONE WITH COLON CA Medications and Allergies Home Medications Medication Instructions Recorded Confirmed Type Warfarin [Coumadin] 5 mg PO SUTUTH 04/18/14 09/27/21 History lisinopriL 40 mg PO HS@1900 04/18/14 09/27/21 History Multivitamins, Thera [Multivitamin 1 tab PO DAILY@0700 05/05/15 09/27/21 History (formulary)] Aspirin [Adult Low Dose Aspirin EC] 162 mg PO DAILY@0700 11/14/16 09/27/21 History Ubidecarenone [Co Q-10] 200 mg PO DAILY@0700 03/09/19 09/27/21 History Carvedilol [Coreg] 6.25 mg PO BID@0700,1900 09/27/21 09/27/21 History Ferrous Sulfate [Feosol] 325 mg PO DAILY@0700 09/27/21 09/27/21 History Lovastatin [Mevacor] 60 mg PO HS@1900 09/27/21 09/27/21 History Warfarin [Coumadin] 7.5 mg PO MOWEFRSA 09/27/21 09/27/21 History metFORMIN HCL [Glucophage] 500 mg PO DAILY@1200 09/27/21 09/27/21 History Allergies Allergy/AdvReac Type Severity Reaction Status Date / Time No Known Allergies Allergy Verified 09/27/21 14:05 Physical Exam Vitals: Vital Signs Temp Pulse Pulse Resp BP BP Pulse Ox 09/28/21 09:45 138 H 28 H 113/93 09/28/21 09:30 134 H 24 100/82 09/28/21 09:00 112 H 19 104/84 94 L 09/28/21 08:45 98.2 F 95 27 H 100/70 100 09/28/21 08:15 112 H 16 101/85 09/28/21 08:00 102 H 28 H 112/92 96 09/28/21 07:45 123 H 26 H 96/79 09/28/21 07:30 112 H 29 H 94/51 09/28/21 07:15 104 H 24 102/62 90 L 09/28/21 07:00 104 H 30 H 97/62 94 L 09/28/21 06:45 104 H 24 90/68 93 L 09/28/21 06:30 115 H 32 H 74/56 09/28/21 06:15 142 H 31 H 109/74 09/28/21 06:00 142 H 31 H 86/64 09/28/21 05:45 142 H 19 112/69 87 L 09/28/21 05:30 141 H 28 H 89/53 90 L 09/28/21 05:15 109 H 28 H 90/64 93 L 09/28/21 05:00 96 32 H 88/63 92 L 09/28/21 04:45 78 24 77/43 90 L 09/28/21 04:30 71 17 84/44 90 L 09/28/21 04:15 71 12 81/40 90 L 09/28/21 04:00 97.5 F L 71 30 H 64/43 90 L 09/28/21 03:45 69 28 H 73/35 92 L 09/28/21 03:30 68 16 77/38 91 L 09/28/21 03:15 67 23 78/43 91 L 09/28/21 03:00 97.5 F L 66 24 65/46 90 L 09/28/21 01:50 66/42 09/28/21 01:25 35 L 20 60/47 09/28/21 00:31 72 09/28/21 00:18 68 96 09/27/21 23:25 76 22 97/61 96 09/27/21 21:56 144 H 116/82 96 09/27/21 20:55 97.8 F 142 H 26 H 104/70 90 L 09/27/21 18:10 145 H 19 09/27/21 18:05 98.0 F 145 H 19 111/78 96 09/27/21 17:21 126 H 18 91/71 98 09/27/21 17:17 98.0 F 145 H 18 111/78 96 09/27/21 12:41 97.9 F 129 H 18 117/80 100 FiO2 09/28/21 09:45 09/28/21 09:30 09/28/21 09:00 09/28/21 08:45 09/28/21 08:15 09/28/21 08:00 09/28/21 07:45 09/28/21 07:30 09/28/21 07:15 09/28/21 07:00 09/28/21 06:45 09/28/21 06:30 09/28/21 06:15 09/28/21 06:00 09/28/21 05:45 09/28/21 05:30 09/28/21 05:15 09/28/21 05:00 09/28/21 04:45 09/28/21 04:30 09/28/21 04:15 09/28/21 04:00 09/28/21 03:45 09/28/21 03:30 09/28/21 03:15 09/28/21 03:00 09/28/21 01:50 09/28/21 01:25 09/28/21 00:31 09/28/21 00:18 28 09/27/21 23:25 09/27/21 21:56 09/27/21 20:55 09/27/21 18:10 09/27/21 18:05 09/27/21 17:21 09/27/21 17:17 09/27/21 12:41 Intake and Output 09/27/21 09/28/21 09/28/21 22:59 06:59 14:59 Intake Total 39.5 372.848 314.122 Output Total 380 25 Balance 39.5 -7.152 289.122 Intake: IV 300 225 Sodium Chloride 0.9% 1, 300 225 000 ml @ 75 mls/hr IV . [id number] [facility] Rx#:[id number] Intake, IV Titration 39.5 72.848 89.122 Amount DOPamine DRIP 800 mg In 37.176 Dextrose/Water 1 250ml. bag @ 2 MCG/KG/MIN 3.062 mls/hr IV .Q24H [facility] Rx#: [id number] Diltiazem 125 mg In 39.5 20.792 Sodium Chloride 0.9% 100 ml @ 5 MG/HR 5 mls/hr IV .Q24H [facility] Rx#:[id number] Norepinephrine 4 mg In 14.880 89.122 Sodium Chloride 0.9% 250 ml @ 0.05 MCG/KG/MIN 15. 554 mls/hr IV .[id number] [facility] Rx#:[id number] Output: Urine 380 25 Other: Voiding Method Toilet Indwelling Catheter Weight 81.647 kg GENERAL EXAM: Patient is alert and oriented and the patient is currently on oxygen at 5 L per minute nasal cannula. HEENT: Normocephalic. Normal reaction of pupils, equal size, normal range of extraocular motion. No erythema or exudates in the throat. The patient also has positive JVDs bilaterally consistent with CHF NECK: No masses, no nuchal rigidity. CHEST: No chest wall deformity. LUNGS: Equal air entry with no crackles or wheeze. Diminished breath on the patient has some limited Lung bases bilaterally. Patient is also having crackles in lung bases bilaterally. HEART: S1 and S2 normal with irregular heart sounds, the patient remains in atrial fibrillation with rapid ventricular response at this point in time. ABDOMEN: No hepatosplenomegaly, normal bowel sounds, no guarding or rigidity. Examination of the skin revealed no evidence of significant rashes, suspicious appearing nevi or other concerning lesions. Neurologically, the patient is awake and alert and the patient does not have any focal neurological deficit. Cranial nerves are essentially intact. EXTREMITIES: Patient had wrapping on the right leg Results - Laboratory Findings CBC and BMP: 09/28/21 09:00 09/27/21 13:11 ABG WBC 16.3 k/uL (3.8-10.6) H 09/28/21 09:00 RBC 3.87 m/uL (4.30-5.90) L 09/28/21 09:00 Hgb 10.5 gm/dL (13.0-17.5) L 09/28/21 09:00 Hct 35.5 % (39.0-53.0) L 09/28/21 09:00 MCV 91.6 fL (80.0-100.0) 09/28/21 09:00 MCH 27.2 pg (25.0-35.0) 09/28/21 09:00 MCHC 29.7 g/dL (31.0-37.0) L 09/28/21 09:00 RDW 14.2 % (11.5-15.5) 09/28/21 09:00 Plt Count 221 k/uL (150-450) 09/28/21 09:00 MPV 8.7 09/28/21 09:00 Neutrophils % 88 % 09/28/21 09:00 Lymphocytes % 4 % 09/28/21 09:00 Monocytes % 7 % 09/28/21 09:00 Eosinophils % 0 % 09/28/21 09:00 Basophils % 0 % 09/28/21 09:00 Neutrophils # 14.4 k/uL (1.3-7.7) H 09/28/21 09:00 Lymphocytes # 0.6 k/uL (1.0-4.8) L 09/28/21 09:00 Monocytes # 1.1 k/uL (0-1.0) H 09/28/21 09:00 Eosinophils # 0.0 k/uL (0-0.7) 09/28/21 09:00 Basophils # 0.1 k/uL (0-0.2) 09/28/21 09:00 Hypochromasia Moderate 09/28/21 09:00 PT 27.3 sec (9.0-12.0) H 09/28/21 09:00 INR 2.7 (<1.2) H 09/28/21 09:00 APTT 31.7 sec (22.0-30.0) H 09/27/21 13:11 D-Dimer 0.29 mg/L FEU (<0.60) 09/27/21 13:11 Sodium 138 mmol/L (137-145) 09/27/21 13:11 Potassium 5.1 mmol/L (3.5-5.1) 09/27/21 13:11 Chloride 102 mmol/L (98-107) 09/27/21 13:11 Carbon Dioxide 27 mmol/L (22-30) 09/27/21 13:11 Anion Gap 9 mmol/L 09/27/21 13:11 BUN 24 mg/dL (9-20) H 09/27/21 13:11 Creatinine 0.74 mg/dL (0.66-1.25) 09/27/21 13:11 Est GFR (CKD-EPI)AfAm >90 (>60 ml/min/1.73 sqM) 09/27/21 13:11 Est GFR (CKD-EPI)NonAf 84 (>60 ml/min/1.73 sqM) 09/27/21 13:11 Glucose 123 mg/dL (74-99) H 09/27/21 13:11 POC Glucose (mg/dL) 203 mg/dL (75-99) H 09/28/21 02:08 POC Glu [employer] Sunil Herbert 09/28/21 02:08 Plasma Lactic Acid Jurgen 1.6 mmol/L (0.7-2.0) 09/27/21 13:11 Calcium 9.1 mg/dL (8.4-10.2) 09/27/21 13:11 Magnesium 2.2 mg/dL (1.6-2.3) 09/27/21 13:11 Total Bilirubin 0.5 mg/dL (0.2-1.3) 09/27/21 13:11 AST 26 U/L (17-59) 09/27/21 13:11 ALT 16 U/L (4-49) 09/27/21 13:11 Alkaline Phosphatase 69 U/L (38-126) 09/27/21 13:11 Troponin I <0.012 ng/mL (0.000-0.034) 09/27/21 20:43 NT-Pro-B Natriuret Pep 1450 pg/mL 09/27/21 13:11 Total Protein 7.1 g/dL (6.3-8.2) 09/27/21 13:11 Albumin 4.1 g/dL (3.5-5.0) 09/27/21 13:11 Procalcitonin 0.02 ng/mL (0.02-0.09) 09/27/21 18:12 TSH 2.070 mIU/L (0.465-4.680) 09/27/21 18:12 PT/INR, D-dimer PT 27.3 sec (9.0-12.0) H 09/28/21 09:00 INR 2.7 (<1.2) H 09/28/21 09:00 D-Dimer 0.29 mg/L FEU (<0.60) 09/27/21 13:11 Abnormal lab findings: Abnormal Labs 09/27/21 09/27/21 09/27/21 13:11 13:11 13:11 WBC RBC Hgb 12.1 L Hct 38.5 L MCHC Neutrophils # Lymphocytes # Monocytes # PT 24.7 H INR 2.5 H APTT 31.7 H BUN 24 H Glucose 123 H POC Glucose (mg/dL) 09/27/21 09/28/21 09/28/21 20:09 01:36 02:08 WBC RBC Hgb Hct MCHC Neutrophils # Lymphocytes # Monocytes # PT INR APTT BUN Glucose POC Glucose (mg/dL) 121 H 175 H 203 H 09/28/21 09/28/21 09:00 09:00 WBC 16.3 H RBC 3.87 L Hgb 10.5 L Hct 35.5 L MCHC 29.7 L Neutrophils # 14.4 H Lymphocytes # 0.6 L Monocytes # 1.1 H PT 27.3 H INR 2.7 H APTT BUN Glucose POC Glucose (mg/dL) - Diagnostic Findings Chest x-ray: image reviewed Assessment and Plan Plan: Acute decompensated heart failure with pulmonary edema, bilateral pleural effusion, elevated proBNP level and this is probably exacerbated by A. fib RVR. Known history of ischemic cardiomyopathy with impaired LV function and previous impairment in left ventricular function with an ejection fraction of 35%. Acute hypoxic respiratory failure secondary to above and the patient's and the patient is currently on 5 L of O2 nasal cannula Bilateral pleural effusion secondary to CHF Shortness of breath secondary to above History of asbestosis extensive bilateral pleural plaque and Atrial fibrillation with RVR, initiated on Cardizem drip, became bradycardic and the patient is currently off Cardizem, awaiting further recommendations from cardiology. He was taking beta blockers on outpatient basis,, the patient has been on long-term and to coagulation with warfarin. PT/INR is therapeutic for now. Note that the patient undergone previous EP studies with cardiac ablation regarding atrial fibrillation, unsuccessful. 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 Asbestos exposure [employer] service Plan Titrate oxygen flow to maintain saturation above 90% Try to diurese this patient with Lasix 40 mg IV push every 12 hours Management of atrial fibrillation per cardiology. The patient failed Cardizem drip as the patient became bradycardic. Consider amiodarone Repeat echocardiogram to reevaluate LV function Keep the Welsh catheter in place and monitor the hematuria for now. Monitor PT/INR and pharmacy to dose his Coumadin TSH, FT4 is normal Procal is negative DC rocephine chech UA We'll continue to follow and we'll keep the patient in ICU for now. Mother the patient is currently off pressors.
--- NOTE | 2021-09-28 10:57 | CA ---
Transthoracic Echo Report Name: Tani Mckeon Age: 85 Gender: M : 1935 Exam Date: 09/28/2021 07:44 Exam Location: [facility] Ht (in): 67 Wt (lb): 180 Ordering Physician: Samara Rodriguez MD ([id number]) Attending/Referring Phys: Neighborhood Aide Angie Madden RDCS Procedure CPT: Indications: tachycardia Cardiac Hx: Technical Quality: Technically difficult study Contrast 1: Lumason Total Dose (mL): 3 Contrast 2: Total Dose (mL): MEASUREMENTS (Male / Female) Normal Values 2D ECHO LV Diastolic Diameter PLAX 4.8 cm 4.2 - 5.9 / 3.9 - 5.3 cm LV Systolic Diameter PLAX 4.0 cm IVS Diastolic Thickness 1.0 cm 0.6 - 1.0 / 0.6 - 0.9 cm LVPW Diastolic Thickness 1.1 cm 0.6 - 1.0 / 0.6 - 0.9 cm LV Relative Wall Thickness 0.4 RV Internal Dim ED PLAX 3.7 cm LA Volume 79.5 cm??? 18 - 58 / 22 - 52 cm??? M-MODE Aortic Root Diameter MM 3.7 cm LA Systolic Diameter MM 4.3 cm LA Ao Ratio MM 1.1 AV Cusp Separation MM 1.0 cm DOPPLER AV Peak Velocity 253.5 cm/s AV Peak Gradient 25.7 mmHg AV Mean Velocity 175.7 cm/s AV Mean Gradient 14.1 mmHg AV Velocity Time Integral 51.8 cm LVOT Peak Velocity 122.7 cm/s LVOT Peak Gradient 6.0 mmHg TR Peak Velocity 232.7 cm/s TR Peak Gradient 21.7 mmHg Right Ventricular Systolic Press 26.7 mmHg FINDINGS Left Ventricle Left ventricular wall thickness normal. Moderately reduced global left ventricular systolic function. Left ventricular ejection fraction is estimated at 30-35 %. Abnormal left ventricular diastolic filling pattern. Right Ventricle Mild right ventricular dilatation. Right ventricular systolic pressure within normal limits. Right Atrium Right atrium not well visualized. Left Atrium Severely increased left atrial volume. No evidence for an atrial septal defect. Mitral Valve Mild mitral annular calcification. Moderate mitral regurgitation. Aortic Valve Mild aortic stenosis with a peak gradient of 26 mmHg and a mean gradient of 14 mmHg. Tricuspid Valve Mild tricuspid regurgitation. Pulmonic Valve Trace pulmonic regurgitation. Pericardium No pericardial effusion. Aorta Normal size aortic root and proximal ascending aorta. CONCLUSIONS #1. Left ventricular size and normal global left ventricular hypokinesia and estimated ejection fraction of 30-35%. #2. Right ventricle is mildly dilated. #3. Moderate mitral regurgitation #4. Mild aortic stenosis Previewed by: Dr. Ion Escudero MD (Electronically Signed) Final Date: 28 September 2021 10:56
[2021-09-28 11:10] LABS: Glucose,Whole Blood 139 mg/dL (75-99)
[2021-09-28] MEDS ORDERED: DEXTROSE 5% IN WATER 100 ML with AMIODARONE 150 MG IV ONE (11:30)
[2021-09-28] MEDS ORDERED: AMIODARONE 360 MG in DEXTROSE 5% IN WATER 200 ML IV ONE ×2 (11:40)
[2021-09-28] MEDS ORDERED: metFORMIN 500 MG TAB PO SCH (12:00)
--- NOTE | 2021-09-28 12:41 | P.CRDCN ---
History of Present Illness History of present illness: This is Dr. 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% Extensive pleural plaque and calcification of the entire left and right lung fay as well as diaphragmatic pleural block Prior asbestosis Plan Start IV amiodarone Proceed with electrical cardioversion on Friday In the after midnight on Friday Do not stop Coumadin Keep INR above 2.0 This patient has had worsening heart failure symptoms and cardio myopathy Diagnoses quite likely that is afebrile rates are not well controlled His TSH is normal While he does have history of ischemic adenopathy he did not pick troponins despite hypertension and severe bradycardia and progressive shortness of breath and heart failure symptoms My intention is to load him with IV amiodarone and then cardiovert him and maintain sinus rhythm with a wound that is heart failure symptoms will improve and his LV function will, to the baseline of 40-45% The risk obviously is bradycardia during sinus rhythm But we are unable to control his heart rate without causing severe bradycardia I would hold off on permanent pacemaker at this time given his elevated white count and increased interstitial markings on chest HPI Patient presented with increasing shortness of breath Found to be in A. fib with RVR Initially treated with IV Cardizem Became very bradycardic intermittent transferred to the ICU Placed on IV every fluid Now he has atrial fibrillation with RVR once again This was discontinued ROS: No fever chills or rigors, no cough, phlegm or expectoration, no nausea, vomiting or diarrhea, no hematuria, dysuria, no musculoskeletal complaints, no strokes or seizures, no skin lesions. EXAMINATION: On examination his blood pressure now is 114 systolic Heart rate of 140 Breath sounds are reduced bilaterally with bilateral rhonchi and bibasilar crackles Patient be short of breath at rest REVIEW OF LABS, ECG & MEDICAL DATA 2-D echo during atrial fibrillation with RVR shows left radical ejection fraction of 30-35% with mild aortic stenosis peak gradient of 26 and a mean gradient of 14 Severely increased left atrial volume Normal troponin TSH is normal Elevated white count was 16,000 Drop in hemoglobin to 10.5. He received IV fluids 500 mL yesterday Platelet count 221,000 Sodium 139, potassium 5.0 BUN 30 increasing 1.3 Past Medical History Past Medical History: Atrial Fibrillation, Coronary Artery Disease (CAD), Heart Failure, Diabetes Mellitus, GERD/Reflux, Hyperlipidemia, Hypertension, Osteoarthritis (OA), Skin Disorder Additional Past Medical History / Comment(s): PSORIASIS,HX-DIVERTICULITIS, HEMORRHOIDS, POLYPS (BENIGN), leaky heart valve, murmur, gout, chronic lower ba ck pain, pt now on metformin but denies he is diabetic History of Any Multi-Drug Resistant Organisms: None Reported Past Surgical History: Ablation, Appendectomy, Cardiac Ablation, Cholecystectomy, Heart Catheterization With Stent, Joint Replacement, Orthopedic Surgery, Tonsillectomy Additional Past Surgical History / Comment(s): 05-09-15 EP STUDY and ablation, other past medical hx includes: LEFT KNEE REPLACEMENT, AUGUSTO CATARACT removed, bilateral lens implants, HEART CATH X1 STENT 2005, SEVERAL COLONOSCOPIES, RT ANKLE ORIF [address] WITH FUSION Past Anesthesia/Blood Transfusion Reactions: No Reported Reaction, Motion Sickness Date of Last Stent Placement:: 2005 Past Psychological History: No Psychological Hx Reported Smoking Status: Never smoker Past Alcohol Use History: Rare Additional Past Alcohol Use History / Comment(s): STARTED AGE 19 1954, QUIT 1970 Past Drug Use History: None Reported - Past Family History Father Family Medical History: Cancer Additional Family Medical History / Comment(s): brain?lung Brother(s) Family Medical History: Cancer Additional Family Medical History / Comment(s): ONE WITH LUNG CA, ONE WITH COLON CA Medications and Allergies Home Medications Medication Instructions Recorded Confirmed Type Warfarin [Coumadin] 5 mg PO SUTUTH 04/18/14 09/27/21 History lisinopriL 40 mg PO HS@1900 04/18/14 09/27/21 History Multivitamins, Thera [Multivitamin 1 tab PO DAILY@0700 05/05/15 09/27/21 History (formulary)] Aspirin [Adult Low Dose Aspirin EC] 162 mg PO DAILY@0700 11/14/16 09/27/21 History Ubidecarenone [Co Q-10] 200 mg PO DAILY@0700 03/09/19 09/27/21 History Carvedilol [Coreg] 6.25 mg PO BID@0700,1900 09/27/21 09/27/21 History Ferrous Sulfate [Feosol] 325 mg PO DAILY@0700 09/27/21 09/27/21 History Lovastatin [Mevacor] 60 mg PO HS@1900 09/27/21 09/27/21 History Warfarin [Coumadin] 7.5 mg PO MOWEFRSA 09/27/21 09/27/21 History metFORMIN HCL [Glucophage] 500 mg PO DAILY@1200 09/27/21 09/27/21 History Allergies Allergy/AdvReac Type Severity Reaction Status Date / Time No Known Allergies Allergy Verified 09/27/21 14:05 Physical Exam Vitals: Vital Signs Temp Pulse Pulse Resp BP BP Pulse Ox 09/28/21 12:00 140 H 17 115/99 96 09/28/21 11:30 141 H 17 100/83 100 09/28/21 11:00 141 H 23 103/91 99 09/28/21 10:30 140 H 18 114/80 98 09/28/21 10:00 141 H 29 H 123/89 99 09/28/21 09:45 138 H 28 H 113/93 09/28/21 09:30 134 H 24 100/82 09/28/21 09:00 112 H 19 104/84 94 L 09/28/21 08:45 98.2 F 95 27 H 100/70 100 09/28/21 08:15 112 H 16 101/85 09/28/21 08:00 102 H 28 H 112/92 96 09/28/21 07:45 123 H 26 H 96/79 09/28/21 07:30 112 H 29 H 94/51 09/28/21 07:15 104 H 24 102/62 90 L 09/28/21 07:00 104 H 30 H 97/62 94 L 09/28/21 06:45 104 H 24 90/68 93 L 09/28/21 06:30 115 H 32 H 74/56 09/28/21 06:15 142 H 31 H 109/74 09/28/21 06:00 142 H 31 H 86/64 09/28/21 05:45 142 H 19 112/69 87 L 09/28/21 05:30 141 H 28 H 89/53 90 L 09/28/21 05:15 109 H 28 H 90/64 93 L 09/28/21 05:00 96 32 H 88/63 92 L 09/28/21 04:45 78 24 77/43 90 L 09/28/21 04:30 71 17 84/44 90 L 09/28/21 04:15 71 12 81/40 90 L 09/28/21 04:00 97.5 F L 71 30 H 64/43 90 L 09/28/21 03:45 69 28 H 73/35 92 L 09/28/21 03:30 68 16 77/38 91 L 09/28/21 03:15 67 23 78/43 91 L 09/28/21 03:00 97.5 F L 66 24 65/46 90 L 09/28/21 01:50 66/42 09/28/21 01:25 35 L 20 60/47 09/28/21 00:31 72 09/28/21 00:18 68 96 09/27/21 23:25 76 22 97/61 96 09/27/21 21:56 144 H 116/82 96 09/27/21 20:55 97.8 F 142 H 26 H 104/70 90 L 09/27/21 18:10 145 H 19 09/27/21 18:05 98.0 F 145 H 19 111/78 96 09/27/21 17:21 126 H 18 91/71 98 09/27/21 17:17 98.0 F 145 H 18 111/78 96 FiO2 09/28/21 12:00 09/28/21 11:30 09/28/21 11:00 09/28/21 10:30 09/28/21 10:00 09/28/21 09:45 09/28/21 09:30 09/28/21 09:00 09/28/21 08:45 09/28/21 08:15 09/28/21 08:00 09/28/21 07:45 09/28/21 07:30 09/28/21 07:15 09/28/21 07:00 09/28/21 06:45 09/28/21 06:30 09/28/21 06:15 09/28/21 06:00 09/28/21 05:45 09/28/21 05:30 09/28/21 05:15 09/28/21 05:00 09/28/21 04:45 09/28/21 04:30 09/28/21 04:15 09/28/21 04:00 09/28/21 03:45 09/28/21 03:30 09/28/21 03:15 09/28/21 03:00 09/28/21 01:50 09/28/21 01:25 09/28/21 00:31 09/28/21 00:18 28 09/27/21 23:25 09/27/21 21:56 09/27/21 20:55 09/27/21 18:10 09/27/21 18:05 09/27/21 17:21 09/27/21 17:17 Intake and Output 09/27/21 09/28/21 09/28/21 22:59 06:59 14:59 Intake Total 39.5 372.848 514.122 Output Total 380 190 Balance 39.5 -7.152 324.122 Intake: IV 300 375 Sodium Chloride 0.9% 1, 300 375 000 ml @ 75 mls/hr IV . [id number] [facility] Rx#:[id number] Intake, IV Titration 39.5 72.848 139.122 Amount DOPamine DRIP 800 mg In 37.176 Dextrose/Water 1 250ml. bag @ 2 MCG/KG/MIN 3.062 mls/hr IV .Q24H [facility] Rx#: [id number] Diltiazem 125 mg In 39.5 20.792 Sodium Chloride 0.9% 100 ml @ 5 MG/HR 5 mls/hr IV .Q24H [facility] Rx#:[id number] Norepinephrine 4 mg In 14.880 89.122 Sodium Chloride 0.9% 250 ml @ 0.05 MCG/KG/MIN 15. 554 mls/hr IV .[id number] [facility] Rx#:[id number] cefTRIAXone 1 gm In 50 Sodium Chloride 0.9% 50 ml @ 100 mls/hr IVPB Q24HR [facility] Rx#:[id number] Output: Urine 380 190 Other: Voiding Method Toilet Indwelling Catheter Weight 81.647 kg Results 09/28/21 09:00 09/28/21 09:00 Cardiac Enzymes 09/27/21 09/27/21 09/27/21 Range/Units 13:11 13:11 18:08 AST 26 (17-59) U/L Troponin I <0.012 <0.012 (0.000-0.034) ng/mL 09/27/21 Range/Units 20:43 AST (17-59) U/L Troponin I <0.012 (0.000-0.034) ng/mL Coagulation 09/27/21 09/28/21 Range/Units 13:11 09:00 PT 24.7 H 27.3 H (9.0-12.0) sec APTT 31.7 H (22.0-30.0) sec CBC 09/27/21 09/28/21 Range/Units 13:11 09:00 WBC 9.8 16.3 H (3.8-10.6) k/uL RBC 4.32 3.87 L (4.30-5.90) m/uL Hgb 12.1 L 10.5 L (13.0-17.5) gm/dL Hct 38.5 L 35.5 L (39.0-53.0) % Plt Count 280 221 (150-450) k/uL Comprehensive Metabolic Panel 09/27/21 09/28/21 Range/Units 13:11 09:00 Sodium 138 139 (137-145) mmol/L Potassium 5.1 5.0 (3.5-5.1) mmol/L Chloride 102 105 (98-107) mmol/L Carbon Dioxide 27 23 (22-30) mmol/L BUN 24 H 30 H (9-20) mg/dL Creatinine 0.74 1.31 H (0.66-1.25) mg/dL Glucose 123 H 139 H (74-99) mg/dL Calcium 9.1 8.5 (8.4-10.2) mg/dL AST 26 (17-59) U/L ALT 16 (4-49) U/L Alkaline Phosphatase 69 (38-126) U/L Total Protein 7.1 (6.3-8.2) g/dL Albumin 4.1 (3.5-5.0) g/dL Current Medications Generic Name Dose Route Start Last Admin Trade Name Freq PRN Reason Stop Dose Admin Albuterol/Ipratropium 3 ml 09/27/21 22:13 09/28/21 00:18 Ipratropium-Albuterol 3 Ml Neb INHALATION 3 ml RT-QID PRN Administration Shortness Of Breath Or Wheezing Aspirin 81 mg 09/29/21 07:00 Aspirin 81 Mg PO DAILY@0700 [facility] Atorvastatin Calcium 10 mg 09/27/21 19:00 09/27/21 19:10 Atorvastatin 10 Mg Tab PO 10 mg HS@1900 [facility] Administration Carvedilol 6.25 mg 09/27/21 19:00 09/28/21 09:56 Carvedilol 6.25 Mg Tab PO Not Given BID@0700,1900 [facility] Ferrous Sulfate 325 mg 09/28/21 07:00 09/28/21 07:01 Ferrous Sulfate 325 Mg Tab PO 325 mg DAILY@0700 [facility] Administration Furosemide 40 mg 09/28/21 21:00 Furosemide 10 Mg/Ml 4 Ml Vial IV Q12HR [facility] Ceftriaxone Sodium 1 gm/ 50 mls @ 100 mls/hr 09/27/21 23:45 09/28/21 09:39 Sodium Chloride IVPB 100 mls/hr Q24HR [facility] Administration Protocol Amiodarone HCl 360 mg/ 200 mls @ 33.333 mls/hr 09/28/21 11:45 Dextrose/Water IV 09/29/21 12:00 .Q6H [facility] Protocol 1 MG/MIN Lisinopril 40 mg 09/27/21 19:00 09/27/21 19:10 Lisinopril 20 Mg Tab PO 40 mg HS@1900 [facility] Administration Metformin HCl 500 mg 09/28/21 12:00 Metformin 500 Mg Tab PO DAILY@1200 [facility] Miscellaneous Information 0 each 09/28/21 07:47 Warfarin Per Pharmacy MISCELLANE DIRECTED PRN anticoag Multivitamins 1 each 09/28/21 07:00 09/28/21 07:00 Multivitamins, Thera 1 Each Tab PO 1 each DAILY@0700 [facility] Administration Naloxone HCl 0.2 mg 09/28/21 02:38 Naloxone 0.4 Mg/Ml 1 Ml Vial IV Q2M PRN Opioid Reversal Nitroglycerin 0.4 mg 09/27/21 17:07 Nitroglycerin Sl Tabs 0.4 Mg Tab SUBLINGUAL Q5M PRN Chest Pain Pantoprazole Sodium 40 mg 09/28/21 09:00 09/28/21 09:37 Pantoprazole 40 Mg/10 Ml Vial IV 40 mg DAILY [facility] Administration Warfarin Sodium 5 mg 09/27/21 18:00 09/27/21 19:10 Warfarin 5 Mg Tab PO 5 mg SUTUTH [facility] Administration Protocol Warfarin Sodium 7.5 mg 09/28/21 18:00 Warfarin 5 Mg Tab PO MOWEFRSA [facility] Protocol Intake and Output 09/27/21 09/28/21 09/28/21 22:59 06:59 14:59 Intake Total 39.5 372.848 514.122 Output Total 380 190 Balance 39.5 -7.152 324.122 Intake: IV 300 375 Sodium Chloride 0.9% 1, 300 375 000 ml @ 75 mls/hr IV . [id number] [facility] Rx#:[id number] Intake, IV Titration 39.5 72.848 139.122 Amount DOPamine DRIP 800 mg In 37.176 Dextrose/Water 1 250ml. bag @ 2 MCG/KG/MIN 3.062 mls/hr IV .Q24H [facility] Rx#: [id number] Diltiazem 125 mg In 39.5 20.792 Sodium Chloride 0.9% 100 ml @ 5 MG/HR 5 mls/hr IV .Q24H [facility] Rx#:[id number] Norepinephrine 4 mg In 14.880 89.122 Sodium Chloride 0.9% 250 ml @ 0.05 MCG/KG/MIN 15. 554 mls/hr IV .[id number] [facility] Rx#:[id number] cefTRIAXone 1 gm In 50 Sodium Chloride 0.9% 50 ml @ 100 mls/hr IVPB Q24HR [facility] Rx#:[id number] Output: Urine 380 190 Other: Voiding Method Toilet Indwelling Catheter Weight 81.647 kg 09/28/21 09:00 09/28/21 09:00
[2021-09-28] MEDS: AMIODARONE 360 MG in DEXTROSE 5% IN WATER 200 ML IV SCH ×4 (12:48→18:33)
[2021-09-28 13:33] VITALS: BMI 28.1
--- NOTE | 2021-09-28 15:47 | PN ---
PROGRESS NOTE This patient was transferred to the ICU due to hypertension, shortness of breath and atrial fibrillation RVR. He became short of breath overnight after there was a delay in giving him Lasix yesterday and he went into atrial fibrillation RVR in the middle of the night to 140s to 150s. consulted development administrator for possible transfer to the ICU overnight. As mentioned, the heart rates went up to 130s to 140s, respiratory rate 18 to 24, blood pressure about 100 to 113 over 90s, O2 94 to 100. Cardiovascular with irregularly irregular rhythm. Lungs with rales at the base. Psych fair mood and affect. Neurologic alert and oriented x3. Ophthalmologic: Pupils equal and reactive. Procalcitonin 1.02. CT scan of the chest was supposed to be done. I do not think it was. He has acute decompensated heart failure, pulmonary edema, bilateral pleural effusion, elevated BNP causing atrial fibrillation RVR, ischemic cardiomyopathy, ejection fraction 35%, acute hypoxemic respiratory failure, bilateral pleural effusions. He is on 5 L oxygen, history of asbestos and extensive plaques, coronary artery disease, dyslipidemia, hematuria, hypertension, gout, chronic back pain. Continue to maintain him over 90. He is on Lasix 40 IV push every 12 hours. Management of atrial fibrillation as he has failed Cardizem drip due to bradycardia. Possibly amiodarone will be given. Repeat echo. Monitor PT/INR. Continue Coumadin. Thyroid is normal. Procalcitonin is normal. Antibiotics were discontinued CHF. Prognosis guarded in the ICU. MMODL / IJN: [id number] /
[2021-09-28 16:16] LABS: Appearance,Urine Turbid (Clear); Bacteria,Urine Rare /hpf; Bilirubin,Urine Negative (Negative); Blood,Urine Large (Negative); Color,Urine Red; Glucose,Urine (UA) Negative (Negative); Ketones,Urine Negative (Negative); Leukocyte Esterase,Urine Large (Negative); Nitrite,Urine Negative (Negative); PH, Urine 5.5 (5.0-8.0); Protein,Urine 2+ (Negative); RBC,Urine >182 /hpf (0-5); Specific Gravity,Urine 1.012 (1.001-1.035); Urobilinogen,Urine <2.0 mg/dL (<2.0); WBC,Urine >182 /hpf (0-5)
[2021-09-28 16:47] LABS: Glucose,Whole Blood 140 mg/dL (75-99)
[2021-09-28] MEDS: INSULIN ASPART (NovoLOG) 100 UNIT/ML VIAL SQ SCH ×2 (17:08→20:57)
[2021-09-28] MEDS: NOREPINEPHRINE 4 MG in SODIUM CHLORIDE 0.9% 250 ML IV SCH (17:09)
[2021-09-28] MEDS ORDERED: WARFARIN 5 MG TAB PO SCH (18:00)
[2021-09-28] MEDS: lisinopriL 20 MG TAB PO SCH (18:12)
[2021-09-28] MEDS: ATORVASTATIN 10 MG TAB PO SCH (18:33)
--- NOTE | 2021-09-28 18:46 | P.CNPUL ---
History of Present Illness Consult date: 09/27/21 Reason for consult: dyspnea, cough Chief complaint: Shortness of breath History of present illness: Mr. Mike Rowley is a 85-year-old male who presented to PMDs office related to multiple issues and problem including 2 weeks history of ongoing progressive shortness of breath which is getting worse also has abdominal discomfort and pain, patient was sent to emergency department for further evaluation, past medical history significant for chronic atrial fibrillation on Coumadin on specific questioning patient denies any dizziness lightheadedness denies any chest pain does have ongoing progressive shortness of breath he was noted to be in A. fib with RVR on admission. His prior medical history significant for chronic systolic heart failure with baseline ejection fraction of 35%, coronary artery disease dyslipidemia hypertension and heart failure. He does have a history of significant coronary artery disease with stent placement and ablation therapy for chronic atrial fibrillation. On arrival he was afebrile tachypnea and tachycardia with hemodynamic instability due to tachycardia blood pressure was soft 110/80, oxygen saturation 100%. Significant labs include a chest x-ray significant for as the status related lung disease along with calcified plaques as well as bilateral lower lobe infiltrate along with small pleural effusion likely developing pneumonia, EKG consistent with atrial flutter/fibrillation with RVR, hemoglobin hematocrit is 12/38, white cell count is 9.8, BUN/creatinine 24/0.74 Review of Systems All systems: negative Past Medical History Past Medical History: Atrial Fibrillation, Coronary Artery Disease (CAD), Heart Failure, Diabetes Mellitus, GERD/Reflux, Hyperlipidemia, Hypertension, Osteoart hritis (OA), Skin Disorder Additional Past Medical History / Comment(s): PSORIASIS,HX-DIVERTICULITIS, HEMORRHOIDS, POLYPS (BENIGN), leaky heart valve, murmur, gout, chronic lower back pain, pt now on metformin but denies he is diabetic History of Any Multi-Drug Resistant Organisms: None Reported Past Surgical History: Ablation, Appendectomy, Cardiac Ablation, Cholecystectomy, Heart Catheterization With Stent, Joint Replacement, Orthopedic Surgery, Tonsillectomy Additional Past Surgical History / Comment(s): 05-09-15 EP STUDY and ablation, other past medical hx includes: LEFT KNEE REPLACEMENT, AUGUSTO CATARACT removed, bilateral lens implants, HEART CATH X1 STENT 2005, SEVERAL COLONOSCOPIES, RT ANKLE ORIF [address] WITH FUSION Past Anesthesia/Blood Transfusion Reactions: No Reported Reaction, Motion Sickness Date of Last Stent Placement:: 2005 Past Psychological History: No Psychological Hx Reported Smoking Status: Never smoker Past Alcohol Use History: Rare Additional Past Alcohol Use History / Comment(s): STARTED AGE 19 1954, QUIT 1970 Past Drug Use History: None Reported - Past Family History Father Family Medical History: Cancer Additional Family Medical History / Comment(s): brain?lung Brother(s) Family Medical History: Cancer Additional Family Medical History / Comment(s): ONE WITH LUNG CA, ONE WITH COLON CA Medications and Allergies Home Medications Medication Instructions Recorded Confirmed Type Warfarin [Coumadin] 5 mg PO SUTUTH 04/18/14 09/27/21 History lisinopriL 40 mg PO HS@1900 04/18/14 09/27/21 History Multivitamins, Thera [Multivitamin 1 tab PO DAILY@0700 05/05/15 09/27/21 History (formulary)] Aspirin [Adult Low Dose Aspirin EC] 162 mg PO DAILY@0700 11/14/16 09/27/21 History Ubidecarenone [Co Q-10] 200 mg PO DAILY@0700 03/09/19 09/27/21 History Carvedilol [Coreg] 6.25 mg PO BID@0700,1900 09/27/21 09/27/21 History Ferrous Sulfate [Feosol] 325 mg PO DAILY@0700 09/27/21 09/27/21 History Lovastatin [Mevacor] 60 mg PO HS@1900 09/27/21 09/27/21 History Warfarin [Coumadin] 7.5 mg PO MOWEFRSA 09/27/21 09/27/21 History metFORMIN HCL [Glucophage] 500 mg PO DAILY@1200 09/27/21 09/27/21 History Allergies Allergy/AdvReac Type Severity Reaction Status Date / Time No Known Allergies Allergy Verified 09/27/21 14:05 Physical Exam Vitals: Vital Signs Temp Pulse Pulse Resp BP BP Pulse Ox 09/27/21 18:10 145 H 19 09/27/21 18:05 98.0 F 145 H 19 111/78 96 09/27/21 17:21 126 H 18 91/71 98 09/27/21 17:17 98.0 F 145 H 18 111/78 96 09/27/21 12:41 97.9 F 129 H 18 117/80 100 Intake and Output 09/27/21 09/27/21 09/28/21 14:59 22:59 06:59 Intake Total 39.5 10.25 Balance 39.5 10.25 Intake: Intake, IV Titration 39.5 10.25 Amount Diltiazem 125 mg In 39.5 10.25 Sodium Chloride 0.9% 100 ml @ 5 MG/HR 5 mls/hr IV .Q24H [facility] Rx#:[id number] Other: Voiding Method Toilet Weight 81.647 kg 81.647 kg - Constitutional General appearance: disheveled, mild distress - EENT Eyes: PERRLA Ears: bilateral: normal - Neck Neck: normal ROM Carotids: bilateral: upstroke normal Thyroid: bilateral: normal size - Respiratory Respiratory: bilateral: diminished - Cardiovascular Rhythm: irregularly irregular Heart sounds: normal: S1, S2 - Gastrointestinal General gastrointestinal: soft - Neurologic Neurologic: CNII-XII intact - Musculoskeletal Musculoskeletal: generalized weakness, strength equal bilaterally - Psychiatric Psychiatric: A&O x's 3, appropriate affect Results - Laboratory Findings CBC and BMP: 09/28/21 09:00 09/28/21 09:00 PT/INR, D-dimer PT 24.7 sec (9.0-12.0) H 09/27/21 13:11 INR 2.5 (<1.2) H 09/27/21 13:11 D-Dimer 0.29 mg/L FEU (<0.60) 09/27/21 13:11 Abnormal lab findings: Abnormal Labs 09/27/21 09/27/21 09/27/21 13:11 13:11 13:11 Hgb 12.1 L Hct 38.5 L PT 24.7 H INR 2.5 H APTT 31.7 H BUN 24 H Glucose 123 H POC Glucose (mg/dL) 09/27/21 20:09 Hgb Hct PT INR APTT BUN Glucose POC Glucose (mg/dL) 121 H - Diagnostic Findings Chest x-ray: report reviewed, image reviewed (Finding as noted above) Assessment and Plan Assessment: Shortness of breath appears to be multifactorial related to possibly developing community-acquired pneumonia and possibly developing heart failure Likely mixed heart failure with combination of Acute on chronic systolic heart failure and diastolic heart failure due to rapid atrial fibrillation Atrial fibrillation with rapid ventricular response well anticoagulated Chronic systolic heart failure Asbestos related lung disease Coronary artery disease Dyslipidemia Plan: Start patient on IV Rocephin We'll check pro-calcitonin level as well Patient adequately anticoagulated with Coumadin with therapeutic INR Continue home medications Further plan of care as per clinical response of the patient Time with Patient: Greater than 30
[2021-09-28 19:10] LABS: LDL Cholesterol,Calculated 33.7 mg/dL (0.0-131.0); VLDL Calculation 14.58 mg/dL (5.00-40.00)
[2021-09-28] MEDS: FUROSEMIDE 10 MG/ML 4 ML VIAL IV SCH (20:49)
[2021-09-28 20:57] LABS: Glucose,Whole Blood 132 mg/dL (75-99)
[2021-09-29] MEDS: AMIODARONE 360 MG in DEXTROSE 5% IN WATER 200 ML IV SCH ×8 (00:52→21:39)
[2021-09-29 06:43] LABS: Glucose,Whole Blood 117 mg/dL (75-99)
[2021-09-29] MEDS: INSULIN ASPART (NovoLOG) 100 UNIT/ML VIAL SQ SCH ×4 (06:43→20:51)
[2021-09-29] MEDS: MULTIVITAMINS, THERA 1 EACH TAB PO SCH (06:47)
[2021-09-29] MEDS: FERROUS SULFATE 325 MG TAB PO SCH (06:47)
[2021-09-29] MEDS: ASPIRIN 81 MG PO SCH (06:47)
[2021-09-29 06:56] LABS: Basophils % (A) 0 %; Eosinophils # (A) 0.1 k/uL (0-0.7); Eosinophils % (A) 0 %; HCT 37.7 % (39.0-53.0); HGB 11.2 gm/dL (13.0-17.5); Hypochromasia Marked; Lymphocytes # (A) 1.6 k/uL (1.0-4.8); Lymphocytes % (A) 11 %; MCH 27.7 pg (25.0-35.0); MCHC 29.8 g/dL (31.0-37.0); MCV 92.9 fL (80.0-100.0); Mean Platelet Volume 8.1; Monocytes # (A) 0.7 k/uL (0-1.0); Monocytes % (A) 5 %; Neutrophils # (A) 11.3 k/uL (1.3-7.7); Neutrophils % (A) 81 %; Platelet Count 258 k/uL (150-450); RBC 4.06 m/uL (4.30-5.90); RDW 14.7 % (11.5-15.5); WBC 13.9 k/uL (3.8-10.6)
[2021-09-29 07:18] LABS: INR 3.8 (<1.2); Prothrombin Time 37.7 sec (9.0-12.0)
[2021-09-29] MEDS: IPRATROPIUM-ALBUTEROL 3 ML NEB INHALATION PRN (07:20)
[2021-09-29 07:28] LABS: Albumin 3.8 g/dL (3.5-5.0); Calcium 8.5 mg/dL (8.4-10.2); Magnesium 2.1 mg/dL (1.6-2.3); Potassium 4.6 mmol/L (3.5-5.1); Total Bilirubin 0.5 mg/dL (0.2-1.3); Total Protein 6.7 g/dL (6.3-8.2)
--- NOTE | 2021-09-29 08:45 | P.PN ---
Subjective Progress Note Date: 09/29/21 This is a 85-year-old patient got transferred to the intensive care unit because of hypotension ongoing shortness of breath. He usually presented to the emergency department because of worsening shortness of breath and he was found to be in A. fib RVR and he was also decompensated heart failure. He is known to have congestion heart failure, ischemic cardiomyopathy with chronic systolic heart failure due to an ejection fraction of 35-40% based on previous echocardiogram. The patient is also known to have coronary artery disease, chronic atrial fibrillation, hypertension and hyperlipidemia and previous history of psoriasis. The patient undergone previous cardiac ablation's regarding his atrial fibrillation. He has undergone EP studies in the past. In any rate, the patient came in for worsening shortness of breath and A. fib RVR. The chest x-ray also showed evidence of asbestosis with pleural plaques and decompensated heart failure. The patient underwent a CT angiogram that showed no evidence of any pulmonary embolism and there was moderate-sized bilateral p leural effusion in addition to extensive calcification of the pleura with pleural plaques consistent with asbestosis. His blood work showed a a white cell count of 16.3 with a hemoglobin of 10.5 and a platelet count of 221. The patient is fully anticoagulated with warfarin with an INR of 2.7. His electrodes were normal. ProBNP level was 1450. Electrolytes were stable. Troponins were negative. The patient is currently in the intensive care unit. She is is on oxygen at 5 L per minute nasal cannula. He was started on broad- spectrum antibiotics with IV Rocephin. Note that initially the patient was in A. fib RVR the patient was started on a Cardizem drip. He was transferred to medical floor. He became more short of breath. He was sent over for a CT angiogram. During the process, he was found to be hypotensive and bradycardic. At that point, he was transferred to the intensive care unit, initially was started on dopamine that was stopped and he was later on switched norepinephrine that was running at a dose of 0.1 mcg/kg per minute. The patient is currently off pressors and his been off pressors since 30 minutes. He has no chest pain. He was given a dose of Lasix yesterday 20 mg IV push. Currently is on no diuretics. His cardiac rhythm currently is atrial fibrillation and the rate is currently around 140 and the patient remains off Cardizem since yesterday. 09/29/2021, the patient is being seen for a follow-up. The patient is currently on O2 at 3 L per minute nasal cannula. The patient came in to see because of hypotension, A. fib RVR and decompensated heart failure. Discussed the case with cardiology. The patient was started on amiodarone drip and currently he is being loaded and he is still on 1 mg per minute and this will be kept the same dose per carpet measurer recommendation. Heart rate is slightly lower although the patient remains tachycardic with a heart rate of around 125, irregular. At the same time, the patient had an echocardiogram that was repeated and the patient was found to have systolic heart failure with an ejection fraction of 30-35%. There was also moderate degree of mitral regurgitation and mild aortic stenosis. I start the patient on IV Lasix yesterday and I put him on Lasix 40 mg IV every 12 hours. The patient is still on diuretics and the same dose. There urine output is taken off and the patient is producing around 1.8 L of urine output since 8 hours and he is headed towards a negative fluid balance for now. Creatinine is at 1.47 and the patient has developed an acute kidney injury probably due to cardiorenal factors due to atrial fibrillation and CHF. Nevertheless, his urine output is improving for now. Is also concern for underlying UTI. The patient remains on IV Rocephin. Urine culture is still pending for now. He is afebrile for now. He is awake and alert. No signs of any respiratory distress. Welsh cath is in place. He has chronic atrial fibrillation, coronary artery disease, hypertension and hyperlipidemia and previous history of psoriasis. In terms of his LDL level this came back at 33. The patient's pro-calcitonin LEVEL WAS AT 0.06. THE PATIENT'S CARDIAC ENZYMES WERE NEGATIVE. PROBNP LEVEL WAS 1450. HIS CHEST X-RAY WAS CONSISTENT WITH CHF AND PULMONARY EDEMA FROM YESTERDAY. CTA OF THE CHEST SHOWED NO EVIDENCE OF PULMONARY EMBOLISM. THERE IS EXTENSIVE ASBESTOSIS AND PLEURAL EFFUSION SMALL.. The white cell count is currently at 13.9 with a hemoglobin of 11.2 and INR is at 3.8. Objective - Vital Signs Vital signs: Vital Signs Temp 98.3 F 09/29/21 04:00 Pulse 128 H 09/29/21 07:33 Resp 24 09/29/21 07:00 BP 105/88 09/29/21 07:00 Pulse Ox 94 L 09/29/21 07:00 FiO2 28 09/28/21 00:18 Intake & Output 09/28/21 09/29/21 09/29/21 18:59 06:59 18:59 Intake Total 865.787 498.020 Output Total 1025 855 Balance -159.213 -356.980 Weight 81.647 kg 89 kg Intake: IV 535 240 Sodium Chloride 0.9% 1, 535 240 000 ml @ 75 mls/hr IV . [id number] [facility] Rx#:[id number] Intake, IV Titration 330.787 258.020 Amount Amiodarone 360 mg In 191.665 200 Dextrose 5% in Water 200 ml @ 1 MG/MIN 33.333 mls/ hr IV .Q6H [facility] Rx#: [id number] Norepinephrine 4 mg In 89.122 38.421 Sodium Chloride 0.9% 250 ml @ 0.05 MCG/KG/MIN 15. 554 mls/hr IV .[id number] [facility] Rx#:[id number] Norepinephrine 4 mg In 19.599 Sodium Chloride 0.9% 250 ml @ 0.05 MCG/KG/MIN 15. 554 mls/hr IV .[id number] [facility] Rx#:[id number] cefTRIAXone 1 gm In 50 Sodium Chloride 0.9% 50 ml @ 100 mls/hr IVPB Q24HR [facility] Rx#:[id number] Output: Urine 1025 855 Other: Voiding Method Indwelling Catheter Indwelling Catheter - Exam GENERAL EXAM: Patient is alert and oriented and the patient is currently on oxygen at 3 L per minute nasal cannula. HEENT: Normocephalic. Normal reaction of pupils, equal size, normal range of extraocular motion. No erythema or exudates in the throat. The patient also has positive JVDs bilaterally consistent with CHF NECK: No masses, no nuchal rigidity. CHEST: No chest wall deformity. LUNGS: Equal air entry with no crackles or wheeze. Diminished breath on the pa tient has some limited Lung bases bilaterally. Patient is also having crackles in lung bases bilaterally. HEART: S1 and S2 normal with irregular heart sounds, the patient remains in atrial fibrillation with rapid ventricular response at this point in time. ABDOMEN: No hepatosplenomegaly, normal bowel sounds, no guarding or rigidity. Examination of the skin revealed no evidence of significant rashes, suspicious appearing nevi or other concerning lesions. Neurologically, the patient is awake and alert and the patient does not have any focal neurological deficit. Cranial nerves are essentially intact. EXTREMITIES: Patient had wrapping on the right leg - Labs CBC & Chem 7: 09/29/21 06:20 09/29/21 06:20 Labs: Abnormal Lab Results - Last 24 Hours (Table) 09/28/21 09/28/21 09/28/21 Range/Units 09:00 09:00 09:00 WBC 16.3 H (3.8-10.6) k/uL RBC 3.87 L (4.30-5.90) m/uL Hgb 10.5 L (13.0-17.5) gm/dL Hct 35.5 L (39.0-53.0) % MCHC 29.7 L (31.0-37.0) g/dL Neutrophils # 14.4 H (1.3-7.7) k/uL Lymphocytes # 0.6 L (1.0-4.8) k/uL Monocytes # 1.1 H (0-1.0) k/uL PT 27.3 H (9.0-12.0) sec INR 2.7 H (<1.2) BUN 30 H (9-20) mg/dL Creatinine 1.31 H (0.66-1.25) mg/dL Glucose 139 H (74-99) mg/dL POC Glucose (mg/dL) (75-99) mg/dL Urine Protein (Negative) Urine Blood (Negative) Ur Leukocyte Esterase (Negative) Urine RBC (0-5) /hpf Urine WBC (0-5) /hpf Urine WBC Clumps (None) /hpf Urine Bacteria (None) /hpf 09/28/21 09/28/21 09/28/21 Range/Units 11:09 12:58 16:42 WBC (3.8-10.6) k/uL RBC (4.30-5.90) m/uL Hgb (13.0-17.5) gm/dL Hct (39.0-53.0) % MCHC (31.0-37.0) g/dL Neutrophils # (1.3-7.7) k/uL Lymphocytes # (1.0-4.8) k/uL Monocytes # (0-1.0) k/uL PT (9.0-12.0) sec INR (<1.2) BUN (9-20) mg/dL Creatinine (0.66-1.25) mg/dL Glucose (74-99) mg/dL POC Glucose (mg/dL) 139 H 140 H (75-99) mg/dL Urine Protein 2+ H (Negative) Urine Blood Large H (Negative) Ur Leukocyte Esterase Large H (Negative) Urine RBC >182 H (0-5) /hpf Urine WBC >182 H (0-5) /hpf Urine WBC Clumps Few H (None) /hpf Urine Bacteria Rare H (None) /hpf 09/28/21 09/29/21 09/29/21 Range/Units 20:55 06:20 06:20 WBC 13.9 H (3.8-10.6) k/uL RBC 4.06 L (4.30-5.90) m/uL Hgb 11.2 L (13.0-17.5) gm/dL Hct 37.7 L (39.0-53.0) % MCHC 29.8 L (31.0-37.0) g/dL Neutrophils # 11.3 H (1.3-7.7) k/uL Lymphocytes # (1.0-4.8) k/uL Monocytes # (0-1.0) k/uL PT 37.7 H (9.0-12.0) sec INR 3.8 H (<1.2) BUN (9-20) mg/dL Creatinine (0.66-1.25) mg/dL Glucose (74-99) mg/dL POC Glucose (mg/dL) 132 H (75-99) mg/dL Urine Protein (Negative) Urine Blood (Negative) Ur Leukocyte Esterase (Negative) Urine RBC (0-5) /hpf Urine WBC (0-5) /hpf Urine WBC Clumps (None) /hpf Urine Bacteria (None) /hpf 09/29/21 09/29/21 Range/Units 06:20 06:42 WBC (3.8-10.6) k/uL RBC (4.30-5.90) m/uL Hgb (13.0-17.5) gm/dL Hct (39.0-53.0) % MCHC (31.0-37.0) g/dL Neutrophils # (1.3-7.7) k/uL Lymphocytes # (1.0-4.8) k/uL Monocytes # (0-1.0) k/uL PT (9.0-12.0) sec INR (<1.2) BUN 33 H (9-20) mg/dL Creatinine 1.47 H (0.66-1.25) mg/dL Glucose 116 H (74-99) mg/dL POC Glucose (mg/dL) 117 H (75-99) mg/dL Urine Protein (Negative) Urine Blood (Negative) Ur Leukocyte Esterase (Negative) Urine RBC (0-5) /hpf Urine WBC (0-5) /hpf Urine WBC Clumps (None) /hpf Urine Bacteria (None) /hpf Microbiology - Last 24 Hours (Table) 09/28/21 12:58 Urine Culture - Preliminary Urine,Voided Assessment and Plan Plan: Acute decompensated heart failure with pulmonary edema, bilateral pleural effusion, elevated proBNP level and this is probably exacerbated by A. fib RVR. The patient is currently on amiodarone which is impacted his rapid ventricular response although the patient continues to be in A. fib. There is consideration for a ALIRIO cardioversion in a.m. specially the patient's cardiac rhythm remains in rapid ventricular response. The patient is currently on 3 L about 2 by nasal cannula Known history of ischemic cardiomyopathy with impaired LV function and previous impairment in left ventricular function with an ejection fraction of 35%. The patient also has a moderate degree of mitral regurgitation Acute hypoxic respiratory failure secondary to above and the patient's and the patient is currently on 3 L of O2 nasal cannula Bilateral pleural effusion secondary to CHF Shortness of breath secondary to above Acute kidney injury secondary to cardiorenal factors and the creatinine is up to 1.4, urine output is improving. History of asbestosis extensive bilateral pleural plaque and Atrial fibrillation with RVR, initiated on Cardizem drip, became bradycardic and the patient is currently off Cardizem, awaiting further recommendations from cardiology. He was taking beta blockers on outpatient basis,, the patient has been on long-term and to coagulation with warfarin. PT/INR is therapeutic for now. Note that the patient undergone previous EP studies with cardiac ablation regarding atrial fibrillation, unsuccessful. 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 Asbestos exposure [employer] Plan Titrate oxygen flow to maintain saturation above 90% Continue Lasix 40 mg IV push every 12 hours Agree on amiodarone loading Possible cardioversion although I'm not optimistic that the patient was being cardiac rhythm is sinus knowing that he has chronic atrial fibrillation. Continue IV Rocephin Awaiting urine cultures Repeat echocardiogram was noted Keep the Welsh catheter in place and monitor the hematuria for now. Monitor PT/INR and pharmacy to dose his Coumadin TSH, FT4 is normal Procal is negative We'll continue to follow and we'll keep the patient in ICU for now.
[2021-09-29] MEDS: PANTOPRAZOLE 40 MG/10 ML VIAL IV SCH (09:08)
[2021-09-29] MEDS: FUROSEMIDE 10 MG/ML 4 ML VIAL IV SCH (09:09)
--- NOTE | 2021-09-29 10:46 | P.PN ---
Subjective Progress Note Date: 09/29/21 The patient is an 85-year-old male who is currently admitted with shortness of breath and atrial fibrillation. The patient is currently in A. fib with average heart rates in the 1 teens. He remains symptomatic, however overall is feeling better since his arrival. He is currently on IV amiodarone. The patient was interviewed and examined lying comfortably in the ICU bed. No current chest pain or chest pressure. No dizziness or lightheadedness. GENERAL: Well-appearing, well-nourished. Mildly labored breathing. NECK: Supple without JVD or thyromegaly. LUNGS: Breath sounds diminished to auscultation bilaterally. Respiration equal. Bilateral expiratory wheezes, worse on the left. HEART: Irregular rate and rhythm without murmurs, rubs or gallops. S1 and S2 heard. EXTREMITIES: Normal range of motion, no edema. No clubbing or cyanosis. Peripheral pulses intact and strong. VITALS: Blood pressure 110/86, pulse 128, respiratory rate 17, SpO2 94% on 3 L nasal cannula TELEMETRY: Atrial fibrillation, left bundle branch type, heart rate in the 1 teens to 120s LABS: WBC 13.9, hemoglobin 11.2, hematocrit 37.7, platelet 258, sodium 138, potassium 4.6, BUN 33, creatinine 1.47, magnesium 2.1, AST 19, ALT 12 IMPRESSION: A. fib with RVR, currently on amiodarone Severe bradycardia on Cardizem, AV gilmar blockers currently being held Chronic lung disease, asbestosis with bilateral pleural effusion Ischemic heart myopathy, known EF 40% PLAN: Continue IV amiodarone Proceed with cardioversion tomorrow at 8 AM Nothing by mouth after midnight Transitioned to oral Lasix as he had good output over the Decrease ANA inhibitor to avoid hypotension Further recommendations based on clinical course I am dictating on behalf of Dr Stephan Crabtree's history/physical and assessment/plan. Objective - Vital Signs Vital signs: Vital Signs Temp 98.0 F 09/29/21 09:00 Pulse 128 H 09/29/21 10:00 Resp 17 09/29/21 10:00 BP 110/86 09/29/21 10:00 Pulse Ox 94 L 09/29/21 10:00 FiO2 28 09/28/21 00:18 Intake & Output 09/28/21 09/29/2122 18:59 06:59 18:59 Intake Total 865.787 498.020 60 Output Total 1025 855 270 Balance -159.213 -356.980 -210 Weight 81.647 kg 89 kg Intake: IV 535 240 60 Sodium Chloride 0.9% 1, 535 240 60 000 ml @ 75 mls/hr IV . [id number] [facility] Rx#:[id number] Intake, IV Titration 330.787 258.020 Amount Amiodarone 360 mg In 191.665 200 Dextrose 5% in Water 200 ml @ 1 MG/MIN 33.333 mls/ hr IV .Q6H [facility] Rx#: [id number] Norepinephrine 4 mg In 89.122 38.421 Sodium Chloride 0.9% 250 ml @ 0.05 MCG/KG/MIN 15. 554 mls/hr IV .[id number] [facility] Rx#:[id number] Norepinephrine 4 mg In 19.599 Sodium Chloride 0.9% 250 ml @ 0.05 MCG/KG/MIN 15. 554 mls/hr IV .[id number] [facility] Rx#:[id number] cefTRIAXone 1 gm In 50 Sodium Chloride 0.9% 50 ml @ 100 mls/hr IVPB Q24HR [facility] Rx#:[id number] Output: Urine 1025 855 270 Other: Voiding Method Indwelling Catheter Indwelling Catheter - Labs CBC & Chem 7: 09/29/21 06:20 09/29/21 06:20 Labs: Abnormal Lab Results - Last 24 Hours (Table) 09/28/21 09/28/21 09/28/21 Range/Units 11:09 12:58 16:42 WBC (3.8-10.6) k/uL RBC (4.30-5.90) m/uL Hgb (13.0-17.5) gm/dL Hct (39.0-53.0) % MCHC (31.0-37.0) g/dL Neutrophils # (1.3-7.7) k/uL PT (9.0-12.0) sec INR (<1.2) BUN (9-20) mg/dL Creatinine (0.66-1.25) mg/dL Glucose (74-99) mg/dL POC Glucose (mg/dL) 139 H 140 H (75-99) mg/dL Urine Protein 2+ H (Negative) Urine Blood Large H (Negative) Ur Leukocyte Esterase Large H (Negative) Urine RBC >182 H (0-5) /hpf Urine WBC >182 H (0-5) /hpf Urine WBC Clumps Few H (None) /hpf Urine Bacteria Rare H (None) /hpf 09/28/21 09/29/21 09/29/21 Range/Units 20:55 06:20 06:20 WBC 13.9 H (3.8-10.6) k/uL RBC 4.06 L (4.30-5.90) m/uL Hgb 11.2 L (13.0-17.5) gm/dL Hct 37.7 L (39.0-53.0) % MCHC 29.8 L (31.0-37.0) g/dL Neutrophils # 11.3 H (1.3-7.7) k/uL PT 37.7 H (9.0-12.0) sec INR 3.8 H (<1.2) BUN (9-20) mg/dL Creatinine (0.66-1.25) mg/dL Glucose (74-99) mg/dL POC Glucose (mg/dL) 132 H (75-99) mg/dL Urine Protein (Negative) Urine Blood (Negative) Ur Leukocyte Esterase (Negative) Urine RBC (0-5) /hpf Urine WBC (0-5) /hpf Urine WBC Clumps (None) /hpf Urine Bacteria (None) /hpf 09/29/21 09/29/21 Range/Units 06:20 06:42 WBC (3.8-10.6) k/uL RBC (4.30-5.90) m/uL Hgb (13.0-17.5) gm/dL Hct (39.0-53.0) % MCHC (31.0-37.0) g/dL Neutrophils # (1.3-7.7) k/uL PT (9.0-12.0) sec INR (<1.2) BUN 33 H (9-20) mg/dL Creatinine 1.47 H (0.66-1.25) mg/dL Glucose 116 H (74-99) mg/dL POC Glucose (mg/dL) 117 H (75-99) mg/dL Urine Protein (Negative) Urine Blood (Negative) Ur Leukocyte Esterase (Negative) Urine RBC (0-5) /hpf Urine WBC (0-5) /hpf Urine WBC Clumps (None) /hpf Urine Bacteria (None) /hpf Microbiology - Last 24 Hours (Table) 09/28/21 12:58 Urine Culture - Preliminary Urine,Voided
[2021-09-29] MEDS: NOREPINEPHRINE 4 MG in SODIUM CHLORIDE 0.9% 250 ML IV SCH (11:06)
[2021-09-29 11:28] LABS: Glucose,Whole Blood 122 mg/dL (75-99)
--- NOTE | 2021-09-29 11:36 | PN ---
PROGRESS NOTE This patient had a normal CT scan. He is still in the ICU with atrial fibrillation with rapid ventricular response, on amiodarone drip to control his heart rate, as he failed Cardizem. He has a history of a cardiomyopathy, so Cardizem is not a great drug for him, anyway. So he has been placed on amiodarone to try to control his atrial fibrillation. Vital signs reviewed. ICU notes were reviewed. Cardiovascular: Irregularly irregular rhythm. Lungs clear. Psych fair mood and affect. Neurologic alert and oriented x3. Hematologic 2+ edema. He has had worsening progressive shortness of breath at home. He was found to have atrial fibrillation and rapid response office in the office. I admitted him directly, gave him given Lasix and admitted him. Cardiology gave him Cardizem drip, which he failed. Now he is currently on other treatments to try to control the atrial fibrillation. His breathing is slightly improved. His CT of the chest as mentioned was negative. ASSESSMENT: 1. Atrial fibrillation with rapid ventricular response. He still remains in the ICU. He is on amiodarone drip. 2. Acute on chronic congestive heart failure with low ejection fraction. Continue with current treatments for atrial fibrillation. Continue Lasix and rate- control medications. Try to stabilize him and send him home in the next few days. MMODL / IJN: [id number] /
[2021-09-29] MEDS: SODIUM CHLORIDE 0.9% 1,000 ML IV SCH ×3 (13:10→14:48)
[2021-09-29] MEDS: FUROSEMIDE 40 MG TAB PO SCH (16:36)
[2021-09-29 16:39] LABS: Glucose,Whole Blood 132 mg/dL (75-99)
[2021-09-29] MEDS ORDERED: WARFARIN 0.5 MG TAB PO ONE (18:00)
[2021-09-29] MEDS: ATORVASTATIN 10 MG TAB PO SCH (18:50)
[2021-09-29] MEDS: lisinopriL 20 MG TAB PO SCH ×2 (20:41→20:42)
[2021-09-29 20:52] LABS: Glucose,Whole Blood 128 mg/dL (75-99)
[2021-09-30] MEDS: AMIODARONE 360 MG in DEXTROSE 5% IN WATER 200 ML IV SCH ×4 (04:06→14:08)
[2021-09-30] MEDS: NOREPINEPHRINE 4 MG in SODIUM CHLORIDE 0.9% 250 ML IV SCH ×2 (04:10→18:07)
[2021-09-30] MEDS: MULTIVITAMINS, THERA 1 EACH TAB PO SCH (07:14)
[2021-09-30] MEDS: FERROUS SULFATE 325 MG TAB PO SCH (07:14)
[2021-09-30] MEDS: ASPIRIN 81 MG PO SCH (07:14)
[2021-09-30 07:27] LABS: Glucose,Whole Blood 108 mg/dL (75-99)
[2021-09-30] MEDS: INSULIN ASPART (NovoLOG) 100 UNIT/ML VIAL SQ SCH ×4 (07:29→21:43)
[2021-09-30] MEDS ORDERED: ATROPINE SULFATE 0.1 MG/ML 10ML SYRINGE ONE (07:43)
[2021-09-30] MEDS: PANTOPRAZOLE 40 MG/10 ML VIAL IV SCH (07:50)
[2021-09-30 07:56] LABS: Basophils % (A) 0 %; Eosinophils # (A) 0.1 k/uL (0-0.7); Eosinophils % (A) 1 %; HCT 34.7 % (39.0-53.0); HGB 10.3 gm/dL (13.0-17.5); Hypochromasia Slight; Lymphocytes # (A) 1.4 k/uL (1.0-4.8); Lymphocytes % (A) 12 %; MCHC 29.7 g/dL (31.0-37.0); Mean Platelet Volume 8.4; Monocytes # (A) 0.7 k/uL (0-1.0); Monocytes % (A) 6 %; Neutrophils # (A) 9.2 k/uL (1.3-7.7); Neutrophils % (A) 80 %; Platelet Count 224 k/uL (150-450); RBC 3.82 m/uL (4.30-5.90); RDW 14.5 % (11.5-15.5); WBC 11.5 k/uL (3.8-10.6)
[2021-09-30] MEDS ORDERED: PROPOFOL 10 MG/ML 20 ML VIAL IV ONE (07:57)
[2021-09-30 07:59] LABS: Calcium 8.2 mg/dL (8.4-10.2); INR 3.8 (<1.2); Potassium 4.6 mmol/L (3.5-5.1); Prothrombin Time 38.1 sec (9.0-12.0)
[2021-09-30] MEDS: AMIODARONE 200 MG TAB PO SCH ×3 (09:35→21:46)
[2021-09-30] MEDS: FUROSEMIDE 40 MG TAB PO SCH ×2 (09:35→15:57)
--- NOTE | 2021-09-30 09:51 | P.PN ---
Subjective Progress Note Date: 09/30/21 This is a 85-year-old patient got transferred to the intensive care unit because of hypotension ongoing shortness of breath. He usually presented to the emergency department because of worsening shortness of breath and he was found to be in A. fib RVR and he was also decompensated heart failure. He is known to have congestion heart failure, ischemic cardiomyopathy with chronic systolic heart failure due to an ejection fraction of 35-40% based on previous echocardiogram. The patient is also known to have coronary artery disease, chronic atrial fibrillation, hypertension and hyperlipidemia and previous history of psoriasis. The patient undergone previous cardiac ablation's regarding his atrial fibrillation. He has undergone EP studies in the past. In any rate, the patient came in for worsening shortness of breath and A. fib RVR. The chest x-ray also showed evidence of asbestosis with pleural plaques and decompensated heart failure. The patient underwent a CT angiogram that showed no evidence of any pulmonary embolism and there was moderate-sized bilateral p leural effusion in addition to extensive calcification of the pleura with pleural plaques consistent with asbestosis. His blood work showed a a white cell count of 16.3 with a hemoglobin of 10.5 and a platelet count of 221. The patient is fully anticoagulated with warfarin with an INR of 2.7. His electrodes were normal. ProBNP level was 1450. Electrolytes were stable. Troponins were negative. The patient is currently in the intensive care unit. She is is on oxygen at 5 L per minute nasal cannula. He was started on broad- spectrum antibiotics with IV Rocephin. Note that initially the patient was in A. fib RVR the patient was started on a Cardizem drip. He was transferred to medical floor. He became more short of breath. He was sent over for a CT angiogram. During the process, he was found to be hypotensive and bradycardic. At that point, he was transferred to the intensive care unit, initially was started on dopamine that was stopped and he was later on switched norepinephrine that was running at a dose of 0.1 mcg/kg per minute. The patient is currently off pressors and his been off pressors since 30 minutes. He has no chest pain. He was given a dose of Lasix yesterday 20 mg IV push. Currently is on no diuretics. His cardiac rhythm currently is atrial fibrillation and the rate is currently around 140 and the patient remains off Cardizem since yesterday. 09/29/2021, the patient is being seen for a follow-up. The patient is currently on O2 at 3 L per minute nasal cannula. The patient came in to see because of hypotension, A. fib RVR and decompensated heart failure. Discussed the case with cardiology. The patient was started on amiodarone drip and currently he is being loaded and he is still on 1 mg per minute and this will be kept the same dose per finishing room operator recommendation. Heart rate is slightly lower although the patient remains tachycardic with a heart rate of around 125, irregular. At the same time, the patient had an echocardiogram that was repeated and the patient was found to have systolic heart failure with an ejection fraction of 30-35%. There was also moderate degree of mitral regurgitation and mild aortic stenosis. I start the patient on IV Lasix yesterday and I put him on Lasix 40 mg IV every 12 hours. The patient is still on diuretics and the same dose. There urine output is taken off and the patient is producing around 1.8 L of urine output since 8 hours and he is headed towards a negative fluid balance for now. Creatinine is at 1.47 and the patient has developed an acute kidney injury probably due to cardiorenal factors due to atrial fibrillation and CHF. Nevertheless, his urine output is improving for now. Is also concern for underlying UTI. The patient remains on IV Rocephin. Urine culture is still pending for now. He is afebrile for now. He is awake and alert. No signs of any respiratory distress. Welsh cath is in place. He has chronic atrial fibrillation, coronary artery disease, hypertension and hyperlipidemia and previous history of psoriasis. In terms of his LDL level this came back at 33. The patient's pro-calcitonin LEVEL WAS AT 0.06. THE PATIENT'S CARDIAC ENZYMES WERE NEGATIVE. PROBNP LEVEL WAS 1450. HIS CHEST X-RAY WAS CONSISTENT WITH CHF AND PULMONARY EDEMA FROM YESTERDAY. CTA OF THE CHEST SHOWED NO EVIDENCE OF PULMONARY EMBOLISM. THERE IS EXTENSIVE ASBESTOSIS AND PLEURAL EFFUSION SMALL.. The white cell count is currently at 13.9 with a hemoglobin of 11.2 and INR is at 3.8. 09/30/2021, the patient is on oxygen at 3 L. The patient was in the intensive care unit because of A. fib, RVR, decompensated heart failure. This morning, the patient underwent a successful cardioversion the current cardiac rhythm is sinus. The patient was also switched to oral amiodarone 200 mg 3 times a day. The patient otherwise is doing well for now. Remains on oral Lasix and the patient is currently receiving 40 mg every 12 hours. No pressors for now. Meanwhile, the overall fluid balance over the past 24 hours has been -500 mL and the patient's renal function is improving and creatinine is down to 1.09 with a BUN of 31 and his sodium level of 135. INR therapeutic at 3.8. Hemoglobin is at 10.3. Resting comfortably in bed. No significant complaints for now. Ech ocardiogram at shown impairment in the LV function with systolic heart failure and ejection fraction of around 30-35%. No altered mentation. There was a concern for an underlying UTI and the patient remains on IV Rocephin. Urine cultures are still pending for now. He is afebrile. Hemodynamically stable. Objective - Vital Signs Vital signs: Vital Signs Temp 97.7 F 09/30/21 08:00 Pulse 79 09/30/21 09:20 Resp 27 H 09/30/21 09:20 BP 106/77 09/30/21 09:20 Pulse Ox 96 09/30/21 09:20 FiO2 28 09/29/21 08:00 Intake & Output 09/29/21 09/30/21 09/30/21 18:59 06:59 18:59 Intake Total 523.333 620 40 Output Total 1160 555 60 Balance -636.667 65 -20 Intake: IV 80 Sodium Chloride 0.9% 1, 80 000 ml @ 75 mls/hr IV . [id number] [facility] Rx#:[id number] Intake, IV Titration 443.333 620 40 Amount Amiodarone 360 mg In 253.333 400 Dextrose 5% in Water 200 ml @ 1 MG/MIN 33.333 mls/ hr IV .Q6H [facility] Rx#: [id number] Sodium Chloride 0.9% 1, 140 220 40 000 ml @ 20 mls/hr IV . Q24H [facility] Rx#:[id number] cefTRIAXone 1 gm In 50 Sodium Chloride 0.9% 50 ml @ 100 mls/hr IVPB Q24HR [facility] Rx#:[id number] Output: Urine 1160 555 60 Other: Voiding Method Indwelling Catheter Indwelling Catheter - Exam GENERAL EXAM: Patient is alert and oriented and the patient is currently on oxygen at 3 L per minute nasal cannula. HEENT: Normocephalic. Normal reaction of pupils, equal size, normal range of extraocular motion. No erythema or exudates in the throat. The patient also has positive JVDs bilaterally consistent with CHF NECK: No masses, no nuchal rigidity. CHEST: No chest wall deformity. LUNGS: Equal air entry with no crackles or wheeze. Diminished breath on the patient has some limited Lung bases bilaterally. Patient is also having crackles in lung bases bilaterally. HEART: S1 and S2 normal with regular heart sounds, ABDOMEN: No hepatosplenomegaly, normal bowel sounds, no guarding or rigidity. Examination of the skin revealed no evidence of significant rashes, suspicious appearing nevi or other concerning lesions. Neurologically, the patient is awake and alert and the patient does not have any focal neurological deficit. Cranial nerves are essentially intact. EXTREMITIES: Patient had wrapping on the right leg - Labs CBC & Chem 7: 09/30/21 07:11 09/30/21 07:11 Labs: Abnormal Lab Results - Last 24 Hours (Table) 09/29/21 09/29/21 09/29/21 Range/Units 11:27 16:37 20:51 WBC (3.8-10.6) k/uL RBC (4.30-5.90) m/uL Hgb (13.0-17.5) gm/dL Hct (39.0-53.0) % MCHC (31.0-37.0) g/dL Neutrophils # (1.3-7.7) k/uL PT (9.0-12.0) sec INR (<1.2) Sodium (137-145) mmol/L BUN (9-20) mg/dL Glucose (74-99) mg/dL POC Glucose (mg/dL) 122 H 132 H 128 H (75-99) mg/dL Calcium (8.4-10.2) mg/dL 09/30/21 09/30/21 09/30/21 Range/Units 07:11 07:11 07:11 WBC 11.5 H (3.8-10.6) k/uL RBC 3.82 L (4.30-5.90) m/uL Hgb 10.3 L (13.0-17.5) gm/dL Hct 34.7 L (39.0-53.0) % MCHC 29.7 L (31.0-37.0) g/dL Neutrophils # 9.2 H (1.3-7.7) k/uL PT 38.1 H (9.0-12.0) sec INR 3.8 H (<1.2) Sodium 135 L (137-145) mmol/L BUN 31 H (9-20) mg/dL Glucose 110 H (74-99) mg/dL POC Glucose (mg/dL) (75-99) mg/dL Calcium 8.2 L (8.4-10.2) mg/dL 09/30/21 Range/Units 07:26 WBC (3.8-10.6) k/uL RBC (4.30-5.90) m/uL Hgb (13.0-17.5) gm/dL Hct (39.0-53.0) % MCHC (31.0-37.0) g/dL Neutrophils # (1.3-7.7) k/uL PT (9.0-12.0) sec INR (<1.2) Sodium (137-145) mmol/L BUN (9-20) mg/dL Glucose (74-99) mg/dL POC Glucose (mg/dL) 108 H (75-99) mg/dL Calcium (8.4-10.2) mg/dL Assessment and Plan Plan: Acute decompensated heart failure with pulmonary edema, bilateral pleural effusion, elevated proBNP level and this is probably exacerbated by A. fib RVR. She is post cardioversion that was successful and the patient's cardiac rhythm is sinus and the patient is currently on oral amiodarone. Remains anticoagulation with warfarin and INR is at 3.8. Hemodynamically stable and urine output is stable and the creatinine has dropped with improvement in his cardiac output. Known history of ischemic cardiomyopathy with impaired LV function and previous impairment in left ventricular function with an ejection fraction of 35%. The patient also has a moderate degree of mitral regurgitation Acute hypoxic respiratory failure secondary to above and the patient's and the patient is currently on 3 L of O2 nasal cannula Bilateral pleural effusion secondary to CHF Shortness of breath secondary to above Acute kidney injury secondary to cardiorenal factors and the creatinine is improving is down to 1.09 History of asbestosis extensive bilateral pleural plaque and Atrial fibrillation with RVR, initiated on Cardizem drip, became bradycardic and the patient is currently off Cardizem, awaiting further recommendations from cardiology. He was taking beta blockers on outpatient basis,, the patient has been on long-term and to coagulation with warfarin. PT/INR is therapeutic for now. Note that the patient undergone previous EP studies with cardiac ablation regarding atrial fibrillation, unsuccessful. 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 Asbestos exposure [employer] service Plan Titrate oxygen flow to maintain saturation above 90% Continue Lasix 40 mg po Agree on amiodarone po Post cardioversion Continue IV Rocephin Awaiting urine cultures Repeat echocardiogram was noted. Monitor PT/INR and pharmacy to dose his Coumadin TSH, FT4 is normal Procal is negative We'll continue to follow and we'll keep the patient in ICU for now.
[2021-09-30 11:28] LABS: Glucose,Whole Blood 129 mg/dL (75-99)
--- NOTE | 2021-09-30 11:43 | P.PN ---
Subjective Progress Note Date: 09/30/21 The patient is an 85-year-old male who is currently admitted with shortness of breath and atrial fibrillation. The patient is currently in A. fib with average heart rates in the 1 teens. He remains symptomatic. The patient underwent bedside cardioversion at 8 AM. Successful cardioversion first attempt with 200 J. The patient was interviewed and examined lying comfortably in the ICU bed prior to cardioversion. No chest pain or chest pressure. No dizziness or lightheadedness, however the patient had not been up ambulating to the bathroom. GENERAL: Well-appearing, well-nourished. Mildly labored breathing. NECK: Supple without JVD or thyromegaly. LUNGS: Breath sounds diminished to auscultation bilaterally. Respiration equal. Bilateral expiratory wheezes, worse on the left. HEART: Irregular rate and rhythm without murmurs, rubs or gallops. S1 and S2 heard. EXTREMITIES: Normal range of motion, no edema. No clubbing or cyanosis. Peripheral pulses intact and strong. VITALS: Blood pressure 103/70, respiratory rate 25, pulse 116, SpO2 97% on 3 L nasal cannula TELEMETRY: Atrial fibrillation, left bundle branch type, heart rate in the 1 teens to 120s. Sinus rhythm after cardioversion with heart rate in the 70s. LABS: WBC 13.9, hemoglobin 11.2, hematocrit 37.7, platelet 258, sodium 138, potassium 4.6, BUN 33, creatinine 1.47, magnesium 2.1, AST 19, ALT 12 IMPRESSION: A. fib with RVR, currently on amiodarone Severe bradycardia on Cardizem, AV gilmar blockers currently being held Chronic lung disease, asbestosis with bilateral pleural effusion Ischemic heart myopathy, known EF 40% PLAN: Finish current IV bag of amiodarone Transitioned to 200 mg 3 times a day Continue to monitor for bradycardia Further recommendations based on clinical course I am dictating on behalf of Dr Stephan Crabtree's history/physical and assessment/plan. Objective - Vital Signs Vital signs: Vital Signs Temp 97.7 F 09/30/21 08:00 Pulse 90 09/30/21 11:15 Resp 19 09/30/21 11:15 BP 112/75 09/30/21 11:15 Pulse Ox 94 L 09/30/21 11:15 FiO2 28 09/29/21 08:00 Intake & Output 09/29/21 09/30/21 09/30/21 18:59 06:59 18:59 Intake Total 523.333 620 100 Output Total 1160 555 220 Balance -636.667 65 -120 Intake: IV 80 Sodium Chloride 0.9% 1, 80 000 ml @ 75 mls/hr IV . [id number] [facility] Rx#:[id number] Intake, IV Titration 443.333 620 100 Amount Amiodarone 360 mg In 253.333 400 Dextrose 5% in Water 200 ml @ 1 MG/MIN 33.333 mls/ hr IV .Q6H [facility] Rx#: [id number] Sodium Chloride 0.9% 1, 140 220 100 000 ml @ 20 mls/hr IV . Q24H [facility] Rx#:[id number] cefTRIAXone 1 gm In 50 Sodium Chloride 0.9% 50 ml @ 100 mls/hr IVPB Q24HR [facility] Rx#:[id number] Output: Urine 1160 555 220 Other: Voiding Method Indwelling Catheter Indwelling Catheter Indwelling Catheter - Labs CBC & Chem 7: 09/30/21 07:11 09/30/21 07:11 Labs: Abnormal Lab Results - Last 24 Hours (Table) 09/29/21 09/29/21 09/30/21 Range/Units 16:37 20:51 07:11 WBC 11.5 H (3.8-10.6) k/uL RBC 3.82 L (4.30-5.90) m/uL Hgb 10.3 L (13.0-17.5) gm/dL Hct 34.7 L (39.0-53.0) % MCHC 29.7 L (31.0-37.0) g/dL Neutrophils # 9.2 H (1.3-7.7) k/uL PT (9.0-12.0) sec INR (<1.2) Sodium (137-145) mmol/L BUN (9-20) mg/dL Glucose (74-99) mg/dL POC Glucose (mg/dL) 132 H 128 H (75-99) mg/dL Calcium (8.4-10.2) mg/dL 09/30/21 09/30/21 09/30/21 Range/Units 07:11 07:11 07:26 WBC (3.8-10.6) k/uL RBC (4.30-5.90) m/uL Hgb (13.0-17.5) gm/dL Hct (39.0-53.0) % MCHC (31.0-37.0) g/dL Neutrophils # (1.3-7.7) k/uL PT 38.1 H (9.0-12.0) sec INR 3.8 H (<1.2) Sodium 135 L (137-145) mmol/L BUN 31 H (9-20) mg/dL Glucose 110 H (74-99) mg/dL POC Glucose (mg/dL) 108 H (75-99) mg/dL Calcium 8.2 L (8.4-10.2) mg/dL 09/30/21 Range/Units 11:25 WBC (3.8-10.6) k/uL RBC (4.30-5.90) m/uL Hgb (13.0-17.5) gm/dL Hct (39.0-53.0) % MCHC (31.0-37.0) g/dL Neutrophils # (1.3-7.7) k/uL PT (9.0-12.0) sec INR (<1.2) Sodium (137-145) mmol/L BUN (9-20) mg/dL Glucose (74-99) mg/dL POC Glucose (mg/dL) 129 H (75-99) mg/dL Calcium (8.4-10.2) mg/dL Microbiology - Last 24 Hours (Table) 09/28/21 12:58 Urine Culture - Final Urine,Voided
[2021-09-30] MEDS: SODIUM CHLORIDE 0.9% 1,000 ML IV SCH (12:15)
--- NOTE | 2021-09-30 13:22 | P.EPPROC ---
- EP Procedure Note Electrophysiology Procedure Note: Diagnosis Atrial fibrillation with RVR Current myopathy Congestive heart failure, acute and chronic Procedure Successful electrical cardioversion with a 200 J biphasic shock in the AP configuration to sinus rhythm Patient tolerated the procedure well without acute complications
[2021-09-30] MEDS ORDERED: carvediloL 3.125 MG TAB PO STA (13:23)
--- NOTE | 2021-09-30 15:10 | PN ---
PROGRESS NOTE Tani Mckeon is an 85-year-old white male. Dr. Crabtree in the hospital today did successful electric cardioversion with a 200 joule biphasic shock in AP to sinus rhythm. He tolerated the procedure well. Apparently went back into sinus rhythm. We will watch him for day. Maybe he will be able to go home tomorrow if he stabilizes. He was in atrial fibrillation with RVR with midodrine which he failed as well as Cardizem, which he failed. Severe bradycardia on Cardizem. AV gilmar blockers currently being held as he has cardiomyopathy, chronic lung disease, atelectasis, bilateral pleural effusion, ischemic heart myopathy, ejection fraction 40%. Cardiovascular S1-S2. Lungs clear. GI soft. Hematology 2+ edema. Blood pressure is 103/70, respiratory rate 20 to 18. Pulse is sinus rhythm at this time, 3 L nasal cannula. Try to wean oxygen down as he is maybe breathing better. After cardioversion, medicines will be adjusted. His hemoglobin is 10.3, white count 11.5, likely reactive. Will work that up as an outpatient. Continue current treatments. Possible discharge home if stabilizes after cardioversion shock. Possible discharge home tomorrow if he is stable. MMODL / IJN: [id number] /
[2021-09-30 16:42] LABS: Glucose,Whole Blood 120 mg/dL (75-99)
[2021-09-30] MEDS ORDERED: WARFARIN 0.5 MG TAB PO ONE (18:00)
[2021-09-30] MEDS: lisinopriL 20 MG TAB PO SCH (20:31)
[2021-09-30] MEDS: ATORVASTATIN 10 MG TAB PO SCH (20:31)
[2021-09-30 21:00] LABS: Glucose,Whole Blood 118 mg/dL (75-99)
[2021-10-01 06:19] LABS: Glucose,Whole Blood 105 mg/dL (75-99)
[2021-10-01] MEDS: ASPIRIN 81 MG PO SCH (06:31)
[2021-10-01] MEDS: FERROUS SULFATE 325 MG TAB PO SCH (06:31)
[2021-10-01] MEDS: MULTIVITAMINS, THERA 1 EACH TAB PO SCH (06:31)
[2021-10-01 06:58] LABS: Glucose,Whole Blood 106 mg/dL (75-99)
[2021-10-01] MEDS: INSULIN ASPART (NovoLOG) 100 UNIT/ML VIAL SQ SCH ×4 (07:08→21:06)
[2021-10-01 07:16] LABS: HCT 34.7 % (39.0-53.0); HGB 10.7 gm/dL (13.0-17.5); Hypochromasia Moderate; MCH 28.1 pg (25.0-35.0); MCHC 30.8 g/dL (31.0-37.0); MCV 91.2 fL (80.0-100.0); Mean Platelet Volume 8.2; Platelet Count 215 k/uL (150-450); RDW 14.3 % (11.5-15.5); WBC 9.6 k/uL (3.8-10.6)
[2021-10-01 07:23] LABS: Prothrombin Time 29.8 sec (9.0-12.0)
[2021-10-01 07:50] LABS: Calcium 8.2 mg/dL (8.4-10.2); Potassium 4.3 mmol/L (3.5-5.1)
[2021-10-01] MEDS: AMIODARONE 200 MG TAB PO SCH ×3 (08:31→21:06)
[2021-10-01] MEDS: PANTOPRAZOLE 40 MG/10 ML VIAL IV SCH (08:31)
[2021-10-01] MEDS: FUROSEMIDE 40 MG TAB PO SCH ×2 (08:31→16:15)
--- NOTE | 2021-10-01 10:00 | P.PN ---
Subjective Patient remains in sinus rhythm. Free of symptoms. On oral amiodarone. He underwent cardioversion yesterday because of recurrent episodes of atrial fibrillation with rapid ventricular rate and episodes of slow ventricular rate. He denies chest pain difficulty in breathing or palpitations. Adequately anticoagulated with Coumadin with an INR of 3. On exam comfortable at rest heart rate is 74 bpm blood pressure is 114/70 respirators 14 O2 sat is 92% on room air there is a jugular venous distention carotid upstroke is normal there is no bruit chest exam reveals diminished air entry bilaterally heart exam vessel second heart sounds no gallop no murmur abdomen is soft exam extremities did not reveal any edema per for pulses are felt Labs showed a hemoglobin of 10.7 platelet count is 2:15 potassium is 4.3 creatinine is 0.9 Assessment and plan: Paroxysmal atrial fibrillation status post cardioversion Patient is doing well continue the Coumadin amiodarone transferred him out of ICU possible discharged home tomorrow Objective - Vital Signs Vital signs: Vital Signs Temp 97.6 F 10/01/21 08:00 Pulse 74 10/01/21 08:00 Resp 14 10/01/21 08:00 BP 114/70 10/01/21 08:00 Pulse Ox 92 L 10/01/21 08:00 FiO2 28 09/29/21 08:00 Intake & Output 09/30/21 10/01/21 10/01/21 18:59 06:59 18:59 Intake Total 100 Output Total 570 1100 200 Balance -470 -1100 -200 Weight 88.5 kg Intake: Intake, IV Titration 100 Amount Sodium Chloride 0.9% 1, 100 000 ml @ 20 mls/hr IV . Q24H [facility] Rx#:[id number] Output: Urine 570 1100 200 Other: Voiding Method Indwelling Catheter Urinal Urinal - Labs CBC & Chem 7: 10/01/21 06:43 10/01/21 06:43 Labs: Abnormal Lab Results - Last 24 Hours (Table) 09/30/21 09/30/21 09/30/21 Range/Units 11:25 16:40 20:59 RBC (4.30-5.90) m/uL Hgb (13.0-17.5) gm/dL Hct (39.0-53.0) % MCHC (31.0-37.0) g/dL PT (9.0-12.0) sec INR (<1.2) BUN (9-20) mg/dL POC Glucose (mg/dL) 129 H 120 H 118 H (75-99) mg/dL Calcium (8.4-10.2) mg/dL 10/01/21 10/01/21 10/01/21 Range/Units 06:17 06:43 06:43 RBC 3.80 L (4.30-5.90) m/uL Hgb 10.7 L (13.0-17.5) gm/dL Hct 34.7 L (39.0-53.0) % MCHC 30.8 L (31.0-37.0) g/dL PT 29.8 H (9.0-12.0) sec INR 3.0 H (<1.2) BUN (9-20) mg/dL POC Glucose (mg/dL) 105 H (75-99) mg/dL Calcium (8.4-10.2) mg/dL 10/01/21 10/01/21 Range/Units 06:43 06:56 RBC (4.30-5.90) m/uL Hgb (13.0-17.5) gm/dL Hct (39.0-53.0) % MCHC (31.0-37.0) g/dL PT (9.0-12.0) sec INR (<1.2) BUN 26 H (9-20) mg/dL POC Glucose (mg/dL) 106 H (75-99) mg/dL Calcium 8.2 L (8.4-10.2) mg/dL Microbiology - Last 24 Hours (Table) 09/28/21 12:58 Urine Culture - Final Urine,Voided
[2021-10-01] MEDS: NOREPINEPHRINE 4 MG in SODIUM CHLORIDE 0.9% 250 ML IV SCH (10:44)
--- NOTE | 2021-10-01 11:51 | P.PN ---
Subjective Progress Note Date: 10/01/21 Principal diagnosis: Acute hypoxic respiratory failure secondary to acute systolic congestive heart failure known history of ischemic cardiomyopathy, atrial fibrillation with RVR This is a 85-year-old patient got transferred to the intensive care unit because of hypotension ongoing shortness of breath. He usually presented to the emergency department because of worsening shortness of breath and he was found to be in A. fib RVR and he was also decompensated heart failure. He is known to have congestion heart failure, ischemic cardiomyopathy with chronic systolic heart failure due to an ejection fraction of 35-40% based on previous echocardiogram. The patient is also known to have coronary artery disease, chronic atrial fibrillation, hypertension and hyperlipidemia and previous history of psoriasis. The patient undergone previous cardiac ablation's regarding his atrial fibrillation. He has undergone EP studies in the past. In any rate, the patient came in for worsening shortness of breath and A. fib RVR. The chest x-ray also showed evidence of asbestosis with pleural plaques and decompensated heart failure. The patient underwent a CT angiogram that showed no evidence of any pulmonary embolism and there was moderate-sized bilateral pleural effusion in addition to extensive calcification of the pleura with pleural plaques consistent with asbestosis. His blood work showed a a white cell count of 16.3 with a hemoglobin of 10.5 and a platelet count of 221. The patient is fully anticoagulated with warfarin with an INR of 2.7. His electrodes were normal. ProBNP level was 1450. Electrolytes were stable. Troponins were negative. The patient is currently in the intensive care unit. She is is on oxygen at 5 L per minute nasal cannula. He was started on broad- spectrum antibiotics with IV Rocephin. Note that initially the patient was in A. fib RVR the patient was started on a Cardizem drip. He was transferred to medical floor. He became more short of breath. He was sent over for a CT angiogram. During the process, he was found to be hypotensive and bradycardic. At that point, he was transferred to the intensive care unit, initially was started on dopamine that was stopped and he was later on switched norepinephrine that was running at a dose of 0.1 mcg/kg per minute. The patient is currently off pressors and his been off pressors since 30 minutes. He has no chest pain. He was given a dose of Lasix yesterday 20 mg IV push. Currently is on no diuretics. His cardiac rhythm currently is atrial fibrillation and the rate is currently around 140 and the patient remains off Cardizem since yesterday. 09/29/2021, the patient is being seen for a follow-up. The patient is currently on O2 at 3 L per minute nasal cannula. The patient came in to see because of hypotension, A. fib RVR and decompensated heart failure. Discussed the case with cardiology. The patient was started on amiodarone drip and currently he is being loaded and he is still on 1 mg per minute and this will be kept the same dose per software support representative recommendation. Heart rate is slightly lower although the patient remains tachycardic with a heart rate of around 125, irregular. At the same time, the patient had an echocardiogram that was repeated and the patient was found to have systolic heart failure with an ejection fraction of 30-35%. There was also moderate degree of mitral regurgitation and mild aortic stenosis. I start the patient on IV Lasix yesterday and I put him on Lasix 40 mg IV every 12 hours. The patient is still on diuretics and the same dose. There urine output is taken off and the patient is producing around 1.8 L of urine output since 8 hours and he is headed towards a negative fluid balance for now. Creatinine is at 1.47 and the patient has developed an acute kidney injury probably due to cardiorenal factors due to atrial fibrillation and CHF. Nevertheless, his urine output is improving for now. Is also concern for underlying UTI. The patient remains on IV Rocephin. Urine culture is still pending for now. He is afebrile for now. He is awake and alert. No signs of any respiratory distress. Welsh cath is in place. He has chronic atrial fibrillation, coronary artery disease, hypertension and hyperlipidemia and previous history of psoriasis. In terms of his LDL level this came back at 33. The patient's pro-calcitonin LEVEL WAS AT 0.06. THE PATIENT'S CARDIAC ENZYMES WERE NEGATIVE. PROBNP LEVEL WAS 1450. HIS CHEST X-RAY WAS CONSISTENT WITH CHF AND PULMONARY EDEMA FROM YESTERDAY. CTA OF THE CHEST SHOWED NO EVIDENCE OF PULMONARY EMBOLISM. THERE IS EXTENSIVE ASBESTOSIS AND PLEURAL EFFUSION SMALL.. The white cell count is currently at 13.9 with a hemoglobin of 11.2 and INR is at 3.8. 09/30/2021, the patient is on oxygen at 3 L. The patient was in the intensive care unit because of A. fib, RVR, decompensated heart failure. This morning, the patient underwent a successful cardioversion the current cardiac rhythm is sinus. The patient was also switched to oral amiodarone 200 mg 3 times a day. The patient otherwise is doing well for now. Remains on oral Lasix and the patient is currently receiving 40 mg every 12 hours. No pressors for now. Meanwhile, the overall fluid balance over the past 24 hours has been -500 mL and the patient's renal function is improving and creatinine is down to 1.09 with a BUN of 31 and his sodium level of 135. INR therapeutic at 3.8. Hemoglobin is at 10.3. Resting comfortably in bed. No significant complaints for now. Echocardiogram at shown impairment in the LV function with systolic heart failure and ejection fraction of around 30-35%. No altered mentation. There was a concern for an underlying UTI and the patient remains on IV Rocephin. Urine cultures are still pending for now. He is afebrile. Hemodynamically stable. Reevaluated today on 10/01/21, patient remains in the ICU, however he seems to be doing quite well. Patient presented with atrial fibrillation and RVR, status post cardioversion on 09/30/2021, presently in sinus rhythm, he is on room air, O2 sats is 92%. IV fluids at KVO. Overall the patient is doing fairly well. Today the patient is relatively asymptomatic, and I plan to transfer the patient out of the ICU to a cardiac floor, and possible discharge home in the next 24 hours. Labs were reviewed, he had a relatively normal CBC and the relatively normal electrolytes, his INR is therapeutic at 3.0. Objective - Vital Signs Vital signs: Vital Signs Temp 97.6 F 10/01/21 08:00 Pulse 71 10/01/21 11:00 Resp 22 10/01/21 11:00 BP 99/61 10/01/21 11:00 Pulse Ox 94 L 10/01/21 11:00 FiO2 28 09/29/21 08:00 Intake & Output 09/30/21 10/01/21 10/01/21 18:59 06:59 18:59 Intake Total 100 Output Total 570 1100 200 Balance -470 -1100 -200 Weight 88.5 kg Intake: Intake, IV Titration 100 Amount Sodium Chloride 0.9% 1, 100 000 ml @ 20 mls/hr IV . Q24H [facility] Rx#:[id number] Output: Urine 570 1100 200 Other: Voiding Method Indwelling Catheter Urinal Urinal - Exam Physical Exam: Revealed an 85-year-old distress. Head: Atraumatic, normocephalic. HEENT:[Neck is supple.] [No neck masses.] [No thyromegaly.] [No JVD.] Chest: [Clear throughout, no crackles, no rhonchi, no wheezes.] Cardiac Exam: [Normal S1 and S2, no S3 gallop, no murmur.] Abdomen: [Soft, nontender, no megaly, no rebound, no guarding, normal bowel sounds.] Extremities: [No clubbing, no edema, no cyanosis.] Neurological Exam: [No focal neurologic deficit.] Alert and oriented 3. Psychiatric: Normal mood, affect and normal mental status examination. Skin: No rashes - Labs CBC & Chem 7: 10/01/21 06:43 10/01/21 06:43 Labs: Abnormal Lab Results - Last 24 Hours (Table) 09/30/21 09/30/21 10/01/21 Range/Units 16:40 20:59 06:17 RBC (4.30-5.90) m/uL Hgb (13.0-17.5) gm/dL Hct (39.0-53.0) % MCHC (31.0-37.0) g/dL PT (9.0-12.0) sec INR (<1.2) BUN (9-20) mg/dL POC Glucose (mg/dL) 120 H 118 H 105 H (75-99) mg/dL Calcium (8.4-10.2) mg/dL 10/01/21 10/01/21 10/01/21 Range/Units 06:43 06:43 06:43 RBC 3.80 L (4.30-5.90) m/uL Hgb 10.7 L (13.0-17.5) gm/dL Hct 34.7 L (39.0-53.0) % MCHC 30.8 L (31.0-37.0) g/dL PT 29.8 H (9.0-12.0) sec INR 3.0 H (<1.2) BUN 26 H (9-20) mg/dL POC Glucose (mg/dL) (75-99) mg/dL Calcium 8.2 L (8.4-10.2) mg/dL 10/01/21 Range/Units 06:56 RBC (4.30-5.90) m/uL Hgb (13.0-17.5) gm/dL Hct (39.0-53.0) % MCHC (31.0-37.0) g/dL PT (9.0-12.0) sec INR (<1.2) BUN (9-20) mg/dL POC Glucose (mg/dL) 106 H (75-99) mg/dL Calcium (8.4-10.2) mg/dL Microbiology - Last 24 Hours (Table) 09/28/21 12:58 Urine Culture - Final Urine,Voided Assessment and Plan Assessment: Impression: Acute hypoxic respiratory failure secondary to acute congestive systolic heart failure Ischemic cardiomyopathy and LV dysfunction with moderate degree of mitral regurgitation Atrial fibrillation with RVR requiring cardioversion Acute kidney injury,/cardiorenal in nature. History of asbestos exposure and pleural plaques. Coronary artery disease. Benign essential hypertension. Recommendation: Continue present treatment plan. Continue diuretics. Continue oral amiodarone. Continue IV Rocephin. Awaiting final urine cultures. Continue to monitor PT and INR patient is on Coumadin. Adjust the dose accordi ngly. Transfer patient out of the ICU to a monitor bed on selective. Consider discharge planning once cleared by cardiology in the next 24 hours Time with Patient: Less than 30
[2021-10-01] MEDS: SODIUM CHLORIDE 0.9% 1,000 ML IV SCH (14:39)
[2021-10-01 16:55] LABS: Glucose,Whole Blood 139 mg/dL (75-99)
[2021-10-01] MEDS: ATORVASTATIN 10 MG TAB PO SCH (17:19)
--- NOTE | 2021-10-01 17:20 | P.PN ---
Progress Note - Text Upon discharge Lisinopril 10 mg by mouth daily Carvedilol 3.125 mg by mouth twice a day Amiodarone 200 mg 3 times a day for 2 weeks, then 200 mg twice a day for a month then 200 mg daily thereafter Warfarin 5 mg to be taken 4 days a week and Warfarin 7.5 mg to be taken 3 days a week, on Wednesdays and Fridays Continue metformin, lovastatin and baby aspirin
[2021-10-01] MEDS ORDERED: WARFARIN 2.5 MG TAB PO ONE (18:00)
[2021-10-01 20:23] LABS: Glucose,Whole Blood 104 mg/dL (75-99)
[2021-10-01] MEDS: lisinopriL 20 MG TAB PO SCH (21:06)
[2021-10-02] MEDS: MULTIVITAMINS, THERA 1 EACH TAB PO SCH (06:39)
[2021-10-02] MEDS: ASPIRIN 81 MG PO SCH (06:39)
[2021-10-02] MEDS: FERROUS SULFATE 325 MG TAB PO SCH (06:39)
[2021-10-02 06:51] LABS: Glucose,Whole Blood 96 mg/dL (75-99)
[2021-10-02] MEDS: INSULIN ASPART (NovoLOG) 100 UNIT/ML VIAL SQ SCH ×2 (06:57→11:49)
[2021-10-02] MEDS: PANTOPRAZOLE 40 MG/10 ML VIAL IV SCH (08:18)
[2021-10-02] MEDS: AMIODARONE 200 MG TAB PO SCH ×2 (08:18→14:35)
[2021-10-02] MEDS: FUROSEMIDE 40 MG TAB PO SCH ×2 (08:18→14:35)
[2021-10-02 08:26] LABS: Prothrombin Time 20.1 sec (9.0-12.0)
--- NOTE | 2021-10-02 08:28 | P.PN ---
Subjective Patient remains in sinus rhythm. His rate to go home. His INR was 3.0 yesterday. We don't have an INR this morning. On exam comfortable at rest vital signs are stable there is a jugular venous distention carotid upstroke is normal there is no bruit chest exam reveals good air entry bilaterally heart exam reveals first and second heart sounds no gallop abdomen is soft exam extremities did not reveal any edema per for pulses are felt Assessment and plan: Persistent atrial fibrillation status post cardioversion patient will continue the amiodarone Lipitor Zestril that he is on he will continue on Coumadin per protocol Objective - Vital Signs Vital signs: Vital Signs Temp 97.7 F 10/02/21 04:00 Pulse 73 10/02/21 04:00 Resp 22 10/02/21 04:00 BP 121/97 10/02/21 04:00 Pulse Ox 97 10/02/21 07:55 FiO2 28 09/29/21 08:00 Intake & Output 10/01/21 10/02/21 10/02/21 18:59 06:59 18:59 Output Total 400 500 Balance -400 -500 Output: Urine 400 500 Other: Voiding Method Urinal Urinal # Voids 1 # Bowel Movements 1 - Labs CBC & Chem 7: 10/01/21 06:43 10/01/21 06:43 Labs: Abnormal Lab Results - Last 24 Hours (Table) 10/01/21 10/01/21 Range/Units 16:53 20:22 POC Glucose (mg/dL) 139 H 104 H (75-99) mg/dL
[2021-10-02 09:10] VITALS: PULSE 76; TEMP 97.6
[2021-10-02 11:40] LABS: Glucose,Whole Blood 111 mg/dL (75-99)
--- NOTE | 2021-10-02 12:36 | P.PN ---
Subjective Progress Note Date: 10/02/21 Principal diagnosis: Acute hypoxic respiratory failure secondary to acute systolic congestive heart failure known history of ischemic cardiomyopathy, atrial fibrillation with RVR This is a 85-year-old patient got transferred to the intensive care unit because of hypotension ongoing shortness of breath. He usually presented to the emergency department because of worsening shortness of breath and he was found to be in A. fib RVR and he was also decompensated heart failure. He is known to have congestion heart failure, ischemic cardiomyopathy with chronic systolic heart failure due to an ejection fraction of 35-40% based on previous echocardiogram. The patient is also known to have coronary artery disease, chronic atrial fibrillation, hypertension and hyperlipidemia and previous history of psoriasis. The patient undergone previous cardiac ablation's regarding his atrial fibrillation. He has undergone EP studies in the past. In any rate, the patient came in for worsening shortness of breath and A. fib RVR. The chest x-ray also showed evidence of asbestosis with pleural plaques and decompensated heart failure. The patient underwent a CT angiogram that showed no evidence of any pulmonary embolism and there was moderate-sized bilateral pleural effusion in addition to extensive calcification of the pleura with pleural plaques consistent with asbestosis. His blood work showed a a white cell count of 16.3 with a hemoglobin of 10.5 and a platelet count of 221. The patient is fully anticoagulated with warfarin with an INR of 2.7. His electrodes were normal. ProBNP level was 1450. Electrolytes were stable. Troponins were negative. The patient is currently in the intensive care unit. She is is on oxygen at 5 L per minute nasal cannula. He was started on broad- spectrum antibiotics with IV Rocephin. Note that initially the patient was in A. fib RVR the patient was started on a Cardizem drip. He was transferred to medical floor. He became more short of breath. He was sent over for a CT angiogram. During the process, he was found to be hypotensive and bradycardic. At that point, he was transferred to the intensive care unit, initially was started on dopamine that was stopped and he was later on switched norepinephrine that was running at a dose of 0.1 mcg/kg per minute. The patient is currently off pressors and his been off pressors since 30 minutes. He has no chest pain. He was given a dose of Lasix yesterday 20 mg IV push. Currently is on no diuretics. His cardiac rhythm currently is atrial fibrillation and the rate is currently around 140 and the patient remains off Cardizem since yesterday. 09/29/2021, the patient is being seen for a follow-up. The patient is currently on O2 at 3 L per minute nasal cannula. The patient came in to see because of hypotension, A. fib RVR and decompensated heart failure. Discussed the case with cardiology. The patient was started on amiodarone drip and currently he is being loaded and he is still on 1 mg per minute and this will be kept the same dose per glass technologist recommendation. Heart rate is slightly lower although the patient remains tachycardic with a heart rate of around 125, irregular. At the same time, the patient had an echocardiogram that was repeated and the patient was found to have systolic heart failure with an ejection fraction of 30-35%. There was also moderate degree of mitral regurgitation and mild aortic stenosis. I start the patient on IV Lasix yesterday and I put him on Lasix 40 mg IV every 12 hours. The patient is still on diuretics and the same dose. There urine output is taken off and the patient is producing around 1.8 L of urine output since 8 hours and he is headed towards a negative fluid balance for now. Creatinine is at 1.47 and the patient has developed an acute kidney injury probably due to cardiorenal factors due to atrial fibrillation and CHF. Nevertheless, his urine output is improving for now. Is also concern for underlying UTI. The patient remains on IV Rocephin. Urine culture is still pending for now. He is afebrile for now. He is awake and alert. No signs of any respiratory distress. Welsh cath is in place. He has chronic atrial fibrillation, coronary artery disease, hypertension and hyperlipidemia and previous history of psoriasis. In terms of his LDL level this came back at 33. The patient's pro-calcitonin LEVEL WAS AT 0.06. THE PATIENT'S CARDIAC ENZYMES WERE NEGATIVE. PROBNP LEVEL WAS 1450. HIS CHEST X-RAY WAS CONSISTENT WITH CHF AND PULMONARY EDEMA FROM YESTERDAY. CTA OF THE CHEST SHOWED NO EVIDENCE OF PULMONARY EMBOLISM. THERE IS EXTENSIVE ASBESTOSIS AND PLEURAL EFFUSION SMALL.. The white cell count is currently at 13.9 with a hemoglobin of 11.2 and INR is at 3.8. 09/30/2021, the patient is on oxygen at 3 L. The patient was in the intensive care unit because of A. fib, RVR, decompensated heart failure. This morning, the patient underwent a successful cardioversion the current cardiac rhythm is sinus. The patient was also switched to oral amiodarone 200 mg 3 times a day. The patient otherwise is doing well for now. Remains on oral Lasix and the patient is currently receiving 40 mg every 12 hours. No pressors for now. Meanwhile, the overall fluid balance over the past 24 hours has been -500 mL and the patient's renal function is improving and creatinine is down to 1.09 with a BUN of 31 and his sodium level of 135. INR therapeutic at 3.8. Hemoglobin is at 10.3. Resting comfortably in bed. No significant complaints for now. Echocardiogram at shown impairment in the LV function with systolic heart failure and ejection fraction of around 30-35%. No altered mentation. There was a concern for an underlying UTI and the patient remains on IV Rocephin. Urine cultures are still pending for now. He is afebrile. Hemodynamically stable. Reevaluated today on 10/01/21, patient remains in the ICU, however he seems to be doing quite well. Patient presented with atrial fibrillation and RVR, status post cardioversion on 09/30/2021, presently in sinus rhythm, he is on room air, O2 sats is 92%. IV fluids at KVO. Overall the patient is doing fairly well. Today the patient is relatively asymptomatic, and I plan to transfer the patient out of the ICU to a cardiac floor, and possible discharge home in the next 24 hours. Labs were reviewed, he had a relatively normal CBC and the relatively normal electrolytes, his INR is therapeutic at 3.0. Reevaluated today on 10/02/21, patient is doing well, relatively asymptomatic, his rate is well-controlled, patient is not in any distress, hence I will clear the patient for discharge home today if cleared by cardiology. Objective - Vital Signs Vital signs: Vital Signs Temp 97.6 F 10/02/21 08:00 Pulse 76 10/02/21 08:00 Resp 16 10/02/21 08:00 BP 120/67 10/02/21 08:00 Pulse Ox 95 10/02/21 08:00 FiO2 28 09/29/21 08:00 Intake & Output 06/10/02/21 10/02/21 18:59 06:59 18:59 Output Total 400 500 Balance -400 -500 Output: Urine 400 500 Other: Voiding Method Urinal Urinal Urinal # Voids 1 # Bowel Movements 1 - Exam Physical Exam: Revealed an 85-year-old distress. Head: Atraumatic, normocephalic. HEENT:[Neck is supple.] [No neck masses.] [No thyromegaly.] [No JVD.] Chest: [Clear throughout, no crackles, no rhonchi, no wheezes.] Cardiac Exam: [Normal S1 and S2, no S3 gallop, no murmur.] Abdomen: [Soft, nontender, no megaly, no rebound, no guarding, normal bowel sounds.] Extremities: [No clubbing, no edema, no cyanosis.] Neurological Exam: [No focal neurologic deficit.] Alert and oriented 3. Psychiatric: Normal mood, affect and normal mental status examination. Skin: No rashes - Labs CBC & Chem 7: 10/01/21 06:43 10/01/21 06:43 Labs: Abnormal Lab Results - Last 24 Hours (Table) 10/01/21 10/01/21 10/02/21 Range/Units 16:53 20:22 07:44 PT 20.1 H (9.0-12.0) sec INR 2.0 H (<1.2) POC Glucose (mg/dL) 139 H 104 H (75-99) mg/dL 10/02/21 Range/Units 11:39 PT (9.0-12.0) sec INR (<1.2) POC Glucose (mg/dL) 111 H (75-99) mg/dL Assessment and Plan Assessment: Impression: Acute hypoxic respiratory failure secondary to acute congestive systolic heart failure Ischemic cardiomyopathy and LV dysfunction with moderate degree of mitral regurgitation Atrial fibrillation with RVR requiring cardioversion Acute kidney injury,/cardiorenal in nature. History of asbestos exposure and pleural plaques. Coronary artery disease. Benign essential hypertension. Recommendation: Continue present treatment plan. Continue diuretics. Continue oral amiodarone. Discontinue Rocephin. Clear to be discharged home Time with Patient: Less than 30
--- NOTE | 2021-10-02 13:56 | PN ---
PROGRESS NOTE DATE OF SERVICE: 10/01/2021 This is an 85-year-old white male, status post cardioversion for atrial fibrillation, unresponsive to amiodarone, Cardizem. Patient is doing better, was in sinus rhythm overnight. No chest pain or shortness of breath. Hematology negative Homans. One to two plus edema. Breathing fair. Plan is to discharge tomorrow morning. MMODL / IJN: [id number] /
[2021-10-02 14:36] VITALS: BP 109/73; RESP 24
[2021-10-02] MEDS ORDERED: WARFARIN 7.5 MG TAB PO ONE (18:00)
== END 2021-10-02 14:45 | disposition home or self-care (01) | DRG 291 ==
LOC: EC 12:40 → 3SCARD 17:07 → 2SICU 09-28 02:06
PROVIDERS: ADMIT Family Medicine; ATTEND Family Medicine
PROC: 3E033XZ Introduction of Vasopressor into Peripheral Vein, Percutaneous Approach (ICD-10-PCS; 2021-09-28)
PROC: 5A2204Z Restoration of Cardiac Rhythm, Single (ICD-10-PCS; principal; 2021-09-30 08:00)
DX: I11.0 Hypertensive heart disease with heart failure (principal); I50.23 Acute on chronic systolic (congestive) heart failure; J96.01 Acute respiratory failure with hypoxia; I48.19 Other persistent atrial fibrillation; I48.92 Unspecified atrial flutter; N17.9 Acute kidney failure, unspecified; J98.11 Atelectasis; I25.5 Ischemic cardiomyopathy; Z77.090 Contact with and (suspected) exposure to asbestos; R00.1 Bradycardia, unspecified; T46.1X5A Adverse effect of calcium-channel blockers, initial encounter; E78.5 Hyperlipidemia, unspecified; I25.10 Atherosclerotic heart disease of native coronary artery without angina pectoris; I44.7 Left bundle-branch block, unspecified; I95.9 Hypotension, unspecified; E11.9 Type 2 diabetes mellitus without complications; J92.0 Pleural plaque with presence of asbestos; L40.9 Psoriasis, unspecified; Z20.822 Contact with and (suspected) exposure to COVID-19; Z79.01 Long term (current) use of anticoagulants; M19.90 Unspecified osteoarthritis, unspecified site; K21.9 Gastro-esophageal reflux disease without esophagitis; M10.9 Gout, unspecified; G89.29 Other chronic pain; M54.50 Low back pain, unspecified; I08.0 Rheumatic disorders of both mitral and aortic valves; R31.9 Hematuria, unspecified; Z96.652 Presence of left artificial knee joint; Z96.1 Presence of intraocular lens; Z79.82 Long term (current) use of aspirin; Z79.84 Long term (current) use of oral hypoglycemic drugs; Z79.899 Other long term (current) drug therapy; Z95.5 Presence of coronary angioplasty implant and graft; Z98.42 Cataract extraction status, left eye; Z98.41 Cataract extraction status, right eye; Z90.49 Acquired absence of other specified parts of digestive tract; Z98.890 Other specified postprocedural states; Z90.89 Acquired absence of other organs; Z87.19 Personal history of other diseases of the digestive system; Z86.010 Personal history of colon polyps; Z87.81 Personal history of (healed) traumatic fracture; Z98.1 Arthrodesis status; Z80.1 Family history of malignant neoplasm of trachea, bronchus and lung; Z80.0 Family history of malignant neoplasm of digestive organs; Z80.8 Family history of malignant neoplasm of other organs or systems
CPT/HCPCS: 36415; 71045; 71046; 71250; 80048; 80053; 80061; 81001; 83605; 83735; 83880; 84145; 84443; 84484; 85025; 85027; 85379; 85610; 85730; 87086; 87635; 92960; 93005; 93306; 94640; 94760; 96374; 99291

== ENCOUNTER → 2021-10-26 | Outpatient (CLI) | payer MEDICARE ==
[2021-10-26 12:56] LABS: Prothrombin Time 71.3 sec (9.0-12.0)
== END | disposition home or self-care (01) ==
LOC: LABWHC1 11:20
PROVIDERS: ATTEND Internal Medicine Clinical Cardiac Electrophysiology
DX: I48.11 Longstanding persistent atrial fibrillation (principal)
CPT/HCPCS: 36415; 85610

== ENCOUNTER 2021-10-31 18:00 | Emergency (ER) | payer MEDICARE ==
[2021-10-31 18:09] VITALS: BP 103/68; PULSE 113; RESP 18; TEMP 97.4
--- NOTE | 2021-10-31 19:38 | ED ---
Abdominal Pain HPI - General Chief Complaint: Abdominal Pain Stated Complaint: Constipation Time Seen by Provider: 10/31/21 19:24 Source: patient Mode of arrival: ambulatory Limitations: no limitations - History of Present Illness Initial Comments: Patient is an 85-year-old male presents the emergency room with complaints of constipation. He complains of no bowel movement 4 days with the pressure of needing to go. He denies any nausea or vomiting. He reports his last bowel movement 4 days ago was pebble-like brown stool. He is not currently on any regular stool softeners though he did take a Dulcolax suppository today with no response. He does take iron supplements daily and Lasix. He reports rectal pressure but no overt abdominal pain. He denies any fevers, chills, chest pain, shortness of breath blood or mucus in his last stool or any significant weight changes. - Related Data Home Medications Medication Instructions Recorded Confirmed Warfarin [Coumadin] 5 mg PO SUTUTH 04/18/14 09/27/21 Multivitamins, Thera [Multivitamin 1 tab PO DAILY@0700 05/05/15 09/27/21 (formulary)] Aspirin [Adult Low Dose Aspirin EC] 162 mg PO DAILY@0700 11/14/16 09/27/21 Ubidecarenone [Co Q-10] 200 mg PO DAILY@0700 03/09/19 09/27/21 Ferrous Sulfate [Iron (65 MG 325 mg PO DAILY@0700 09/27/21 09/27/21 Elemental)] Lovastatin [Mevacor] 60 mg PO HS@1900 09/27/21 09/27/21 Warfarin [Coumadin] 7.5 mg PO MOWEFRSA 09/27/21 09/27/21 metFORMIN HCL [Glucophage] 500 mg PO DAILY@1200 09/27/21 09/27/21 Previous Rx's Medication Instructions Recorded Amiodarone [Cordarone] 200 mg PO TID #180 tab 10/01/21 lisinopriL [Prinivil] 10 mg PO DAILY #90 tab 10/01/21 Furosemide [Lasix] 40 mg PO DAILY 90 Days #90 tab 10/02/21 Sennosides-Docusate Sodium 1 tab PO HS 30 Days #30 tablet 10/31/21 [Senokot-S] Allergies Allergy/AdvReac Type Severity Reaction Status Date / Time No Known Allergies Allergy Verified 10/31/21 18:09 Review of Systems ROS Statement: Those systems with pertinent positive or pertinent negative responses have been documented in the HPI. ROS Other: All systems not noted in ROS Statement are negative. Past Medical History Past Medical History: Atrial Fibrillation, Coronary Artery Disease (CAD), Heart Failure, Diabetes Mellitus, GERD/Reflux, Hyperlipidemia, Hypertension, Osteoarthritis (OA), Skin Disorder Additional Past Medical History / Comment(s): PSORIASIS,HX-DIVERTICULITIS, HEMORRHOIDS, POLYPS (BENIGN), leaky heart valve, murmur, gout, chronic lower back pain, pt now on metformin but denies he is diabetic History of Any Multi-Drug Resistant Organisms: None Reported Past Surgical History: Ablation, Appendectomy, Cardiac Ablation, Cholecystectomy, Heart Catheterization With Stent, Joint Replacement, Orthopedic Surgery, Tonsillectomy Additional Past Surgical History / Comment(s): 05-09-15 EP STUDY and ablation, other past medical hx includes: LEFT KNEE REPLACEMENT, AUGUSTO CATARACT removed, bilateral lens implants, HEART CATH X1 STENT 2005, SEVERAL COLONOSCOPIES, RT ANKLE ORIF HAS [address] WITH FUSION Past Anesthesia/Blood Transfusion Reactions: No Reported Reaction, Motion Sickness Date of Last Stent Placement:: 2005 Past Psychological History: No Psychological Hx Reported Smoking Status: Never smoker Past Alcohol Use History: Rare Past Drug Use History: None Reported - Past Family History Father Family Medical History: Cancer Additional Family Medical History / Comment(s): brain?lung Brother(s) Family Medical History: Cancer Additional Family Medical History / Comment(s): ONE WITH LUNG CA, ONE WITH COLON CA General Exam Limitations: no limitations General appearance: alert, in no apparent distress Head exam: Present: atraumatic, normocephalic, normal inspection Eye exam: Present: normal appearance, PERRL, EOMI. Absent: scleral icterus, conjunctival injection, periorbital swelling ENT exam: Present: normal exam, mucous membranes moist Neck exam: Present: normal inspection Respiratory exam: Present: normal lung sounds bilaterally. Absent: respiratory distress, wheezes, rales, rhonchi, stridor Cardiovascular Exam: Present: regular rate, irregular rhythm, systolic murmur GI/Abdominal exam: Present: soft, normal bowel sounds. Absent: distended, tenderness, guarding, rebound, rigid Rectal exam: Present: deferred Extremities exam: Absent: pedal edema, joint swelling Neurological exam: Present: alert, oriented X3, CN II-XII intact Psychiatric exam: Present: normal affect, normal mood Skin exam: Present: warm, dry, intact, normal color. Absent: rash Course Vital Signs 10/31/21 18:07 Temperature 97.4 F L Pulse Rate 113 H Respiratory 18 Rate Blood Pressure 103/68 O2 Sat by Pulse 97 Oximetry Medical Decision Making - Medical Decision Making In the absence of significant abdominal pain, nausea or vomiting will defer computed tomography scan and check acute abdominal series. No indication for laboratory studies at this time. X-ray of the abdomen without acute processes identified will give magnesium citrate and add Senokot to medication regimen. Signs and symptoms of bowel obstruction and ileus discussed with patient. Encouraged ambulation and hydration in addition to stool softener after completion of magnesium citrate regiment. Case discussed with Dr. Goldstein - Radiology Data Radiology results: report reviewed, image reviewed X-ray abdomen 2 view impression nonspecific bowel gas pattern without radiographic evidence for acute process. Incidental finding of small bilateral pleural effusions. Disposition Clinical Impression: Constipation Disposition: HOME SELF-CARE Condition: Fair Instructions (If sedation given, give patient instructions): Constipation (ED) Additional Instructions: Please take additional half of magnesium citrate bottle if no bowel movement in 6 hours. Senokot S sent to pharmacy to begin 48 hours after completion of magnesium citrate. Ambulation and increased oral fluids as tolerated and encouraged. Please follow-up with your primary care provider. Please return to the emergency room if any worsening signs or symptoms or concerns. Prescriptions: Sennosides-Docusate Sodium [Senokot-S] 1 tab PO HS 30 Days #30 tablet Is patient prescribed a controlled substance at d/c from ED?: No Referrals: David Olson MD [Primary Care Provider] - 1-2 days Time of Disposition: 21:18
--- NOTE | 2021-10-31 20:40 | XR ---
EXAMINATION TYPE: XR abdomen 2V DATE OF EXAM: 10/31/2021 8:36 PM INDICATION: Patient age:Male; 85 years old; Reason for study: abdominal pain/constipation; COMPARISON: None. TECHNIQUE: One radiographic view of the abdomen was obtained. FINDINGS: The bowel gas pattern is nonspecific without dilated loops of small or large bowel. There i s no evidence for organomegaly or pneumoperitoneum. The osseous structures are intact. Pelvic phleb oliths are present. Fecal material and gas are demonstrated throughout the colon and rectum. Right upper quadrant cholecystectomy clips. Multilevel disc degeneration changes are seen throughout the sp ine. There is mild scoliosis changes. Blunting of the costophrenic angles. IMPRESSION: 1. Nonspecific bowel gas pattern without radiographic evidence for acute process. 2. Small bilateral pleural effusions suggested.
[2021-10-31] MEDS ORDERED: MAGNESIUM CITRATE 296 ML BOTTLE PO ONE (20:52)
== END 2021-10-31 21:31 | disposition home or self-care (01) ==
LOC: EC 18:00
DX: K59.00 Constipation, unspecified (principal); I48.91 Unspecified atrial fibrillation; I11.0 Hypertensive heart disease with heart failure; I50.9 Heart failure, unspecified; E11.9 Type 2 diabetes mellitus without complications; I25.10 Atherosclerotic heart disease of native coronary artery without angina pectoris; Z79.01 Long term (current) use of anticoagulants; Z79.84 Long term (current) use of oral hypoglycemic drugs; Z79.82 Long term (current) use of aspirin; Z79.899 Other long term (current) drug therapy
CPT/HCPCS: 74019; 99283

== ENCOUNTER → 2021-11-13 | Outpatient (CLI) | payer MEDICARE ==
[2021-11-13 14:17] LABS: HGB 10.4 g/dL (13.0-17.0); MCH 27.2 pg (27.0-32.0); MCHC 30.6 g/dL (32.0-37.0); Mean Platelet Volume 11.4 fL (9.5-12.2); NRBC Per 100 WBC 0 /100 WBCS (0.0-0.0); Platelet Count 255 X 10*3/uL (140-440); RBC 3.82 X 10*6/uL (4.40-5.60); RDW 16.1 % (11.5-14.5); WBC 6.93 X 10*3/uL (4.50-10.00)
[2021-11-13 14:25] LABS: African American GFR (CKD) 57.3 (60.0-200.0); Anion Gap 12.8 mmol/L (10.00-18.00); Blood Urea Nitrogen 35.3 mg/dL (9.0-27.0); Carbon Dioxide 27.2 mmol/L (20.0-27.5); Non-African American GFR(CKD) 49.4 (60.0-200.0); Potassium 4.4 mmol/L (3.5-5.5)
[2021-11-13 14:43] LABS: INR 4.23 (0.90-1.11); Prothrombin Time 43.4 sec (9.9-11.9)
== END | disposition home or self-care (01) ==
LOC: LABPAT 09:06
PROVIDERS: ATTEND Internal Medicine Clinical Cardiac Electrophysiology
DX: Z01.812 Encounter for preprocedural laboratory examination (principal); I25.10 Atherosclerotic heart disease of native coronary artery without angina pectoris; I25.5 Ischemic cardiomyopathy
CPT/HCPCS: 80051; 82565; 84520; 85027; 85610

== ENCOUNTER 2021-11-19 07:50 | Day surgery (SDC) | payer MEDICARE ==
[~2021-11-19 07:50] MED LIST changes: -ADENOSINE 90 MG in SODIUM CHLORIDE 0.9% 60 ML IVP ONE; -ALPRAZolam 0.25 MG TAB PO PRN; -ALPRAZolam 0.5 MG TAB PO PRN; -ASPIRIN 162 MG PO SCH; -ASPIRIN 325 MG TAB PO STA; -ATORVASTATIN 80 MG TAB PO STA; -CARVEDILOL 3.125 MG TAB PO SCH; -CLOBETASOL PROPIONATE TOPICAL PRN; -HEPARIN SODIUM 1,000 UN/ML (10ML VL) IV ONE; -HEPARIN SODIUM 1,000 UN/ML (10ML VL) ONE; -IOPAMIDOL-370 100ML BTL INJ ONE; -IOPAMIDOL-370 125ML BTL INJ ONE; +LACTATED RINGERS 1,000 ML IV SCH; -LIDOCAINE 1% INJ 10MG/ML (20 ML MDV) ONE; -LIDOCAINE 1% INJ 10MG/ML (20 ML MDV) SQ ONE; -LOVASTATIN 20 MG PO SCH; -MULTIVITAMINS, THERA 1 EACH TAB PO SCH; -NITROGLYCERIN 1000MCG/10ML SYRINGE INTRACORON ONE; -NITROGLYCERIN SL TABS 0.4 MG TAB SUBLINGUAL PRN; -NON FORMULARY DRUG (Lisinopril [Lisinopril] 40 MG) PO SCH; -NON FORMULARY DRUG (Ubidecarenone [Co Q-10] 200 MG) PO SCH; -RX INFO: IV CONTRAST WAS GIVEN 1 EACH MISC MISCELLANE PRN; -SODIUM CHLORIDE 0.9% 1,000 ML in EMPTY BAG 1 BAG IV ONE; -VERAPAMIL 2.5 MG/ML 2 ML AMP ONE; -VERAPAMIL SYRINGE (5 MG/10 ML) INTRAARTER ONE; -WARFARIN 5 MG TAB PO SCH; -WARFARIN 7.5 MG TAB PO SCH; -fentaNYL (PF) 50 MCG/ML 2 ML AMP IV ONE; -fentaNYL (PF) 50 MCG/ML 2 ML AMP ONE
[2021-11-19 08:29] LABS: Glucose,Whole Blood 113 mg/dL (70-110)
[2021-11-19 08:38] LABS: Basophils % (A) 0 %; Eosinophils # (A) 0.2 k/uL (0-0.7); Eosinophils % (A) 2 %; HCT 36.6 % (39.0-53.0); HGB 11.3 gm/dL (13.0-17.5); Hypochromasia Moderate; Lymphocytes % (A) 11 %; MCH 27.9 pg (25.0-35.0); MCHC 30.9 g/dL (31.0-37.0); MCV 90.3 fL (80.0-100.0); Mean Platelet Volume 8.2; Monocytes # (A) 0.4 k/uL (0-1.0); Monocytes % (A) 4 %; Neutrophils # (A) 7.1 k/uL (1.3-7.7); Neutrophils % (A) 81 %; Platelet Count 267 k/uL (150-450); RBC 4.05 m/uL (4.30-5.90); RDW 15.6 % (11.5-15.5); WBC 8.8 k/uL (3.8-10.6)
[2021-11-19 08:43] LABS: INR 1.3 (<1.2); Prothrombin Time 13.1 sec (9.0-12.0)
[2021-11-19] MEDS ORDERED: LIDOCAINE 2% INJ 20 MG/ML (2 ML VIAL) ONE (09:37)
[2021-11-19] MEDS ORDERED: ONDANSETRON 4 MG/2 ML VIAL ONE (09:37)
[2021-11-19] MEDS ORDERED: SUCCINYLCHOLINE CHLORIDE 200 MG/10 ML VIAL IV ONE (09:37)
[2021-11-19] MEDS ORDERED: PROPOFOL 10 MG/ML 20 ML VIAL IV ONE (09:37)
[2021-11-19] MEDS ORDERED: HEPARIN SODIUM,PORCINE 10,000 UNIT/ML 1 ML VIAL ONE (09:37)
[2021-11-19] MEDS ORDERED: PHENYLEPHRINE-0.9% NACL SYG 1,000 MCG/10 ML SYRINGE ONE (09:37)
[2021-11-19] MEDS ORDERED: fentaNYL (PF) 50 MCG/ML 2 ML AMP ONE (09:37)
[2021-11-19] MEDS ORDERED: LIDOCAINE URO-JET JELLY 2% 5 ML KIT ONE (10:05)
[2021-11-19] MEDS ORDERED: HEPARIN SOD,PORK IN 0.45% NACL 25,000 UNIT in 0.45% NACL 1 250ML.BAG IV ONE (10:30)
[2021-11-19] MEDS ORDERED: LIDOCAINE 1% INJ 10MG/ML (30 ML VIAL-PF) SQ ONE (10:43)
[2021-11-19] MEDS ORDERED: HEPARIN SODIUM (1,000 UNIT/ML) 1,000 UNIT in SODIUM CHLORIDE 0.9% 1,000 ML IRRIGATION ONE (11:16)
[2021-11-19] MEDS ORDERED: ACETAMINOPHEN IV (For NPO) 1,000 MG in EMPTY BAG 1 BAG IVPB ONE (12:40)
[2021-11-19] MEDS: ATORVASTATIN 10 MG TAB PO SCH (14:42)
[2021-11-19] MEDS: APIXABAN 5 MG TAB PO SCH ×2 (14:43→19:44)
[2021-11-19] MEDS ORDERED: ACETAMINOPHEN TAB 325 MG TAB PO PRN (18:00)
--- NOTE | 2021-11-19 19:17 | P.EPPROC ---
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 fib with RVR Details Patient was brought to the EP lab in a fasting state. Written informed consent was obtained prior to procedure Venous sheaths were placed in the femoral veins of both groin. Moisés sinus catheter was placed Concentric activation with a cycle length of 240 ms noted, consistent with at rial flutter Mapping and ablation cath placed in the cavo tricuspid isthmus Entrainment mapping performed Cavo tricuspid isthmus dependency proven Intracardiac echo catheter placed No left atrial appendage thrombus noted Severe LV dysfunction noted on intracardiac echo Electrical cardioversion performed with a 200 J biphasic shock, successfully to sinus rhythm Thereafter 3-D electro-anatomic mapping with intracardiac echo and with 3-D W mapping A complete line of block was made from the tricuspid valve to the eustachian ridge The patient had a mid isthmus pouch and the second pouch closer to the tricuspid valve RF ablation was carefully performed and it complete line of block was made Pacing maneuvers with differential pacing proved complete bidirectional block Thereafter an EP study is performed Sinus node recovery times at a pacing cycle length of 600 ms was prolonged at 04/25/2008 milliseconds Lead to sinus recovery times prolonged AV node Wenckebach block for 20 ms Sinus cycle length and 94 ms, AH interval 104 ms, HV interval 48 ms OH interval 168 ms, QRS 138 ms, 2-D 361 ms Underlying left bundle branch block morphology At the end of the procedure there was no pericardial effusion noted Severe LV dysfunction still persisted this was immediately after successful ablation Plan Switch to ELIQUIS 5 mg twice daily Reduce amiodarone to 200 mg by mouth daily Continue all other medications including heart failure medications and medications for atherosclerosis Patient has very symptomatic atrial fibrillation and either in A. fib ablation or AV node ablation with biventricular pacing should be considered for definitive management Especially since he is already failed amiodarone loading
[2021-11-19] MEDS: FERROUS SULFATE 325 MG TAB PO SCH (19:44)
[2021-11-20] MEDS: METOPROLOL SUCCINATE (ER) 25 MG TAB.ER.24H PO SCH (08:57)
[2021-11-20] MEDS: APIXABAN 5 MG TAB PO SCH ×2 (08:57→20:08)
[2021-11-20] MEDS: AMIODARONE 200 MG TAB PO SCH (08:57)
[2021-11-20] MEDS: FUROSEMIDE 40 MG TAB PO SCH (08:57)
[2021-11-20] MEDS ORDERED: lisinopriL 10 MG TAB PO SCH ×2 (09:00)
--- NOTE | 2021-11-20 11:04 | P.DS ---
Providers Attending physician: Stephan Crabtree Primary care physician: [facility] Course: Patient sitting in a chair Since he feels weak and does not feel he is ready to go home No dizziness or lightheadedness No chest pain no respiratory distress On examination afebrile 98.5F Heart rates in the 80s Blood pressure 113/74 mmHg and 103/62 mmHg No JVD Normal heart sounds Normal breath sounds clear Access sites have healed well Impression Persistent atrial fibrillation with RVR, with very symptomatic heart failure symptoms Severe cardiomyopathy with severe LV systolic dysfunction, worse with A. fib with RVR Failed amiodarone. Atrial fibrillation changed her atrial tachycardia with a very rapid ventricular response which is asymptomatic Yesterday he underwent mapping of the atrial tachycardia This was atrial flutter with RVR and he underwent successful ablation to sinus rhythm Underlying left bundle branch block Plan His blood pressure was low normal this morning and therefore I would reduce the dose of lisinopril to 5 mg by mouth daily We will switch from warfarin to ELIQUIS since he has very fluctuating levels of INRs ranging from of greater than 5 to less than 2 Continue amiodarone 200 mg by mouth daily Continue low-dose beta blockers Continue low-dose ANA inhibitor as Ambulate with physical therapy assistance Switched ELIQUIS 5 mg twice daily Continue monitoring daily Discharge planning for tomorrow Plan - Discharge Summary Discharge Rx Participant: No New Discharge Prescriptions: New Aspirin EC [Ecotrin Low Dose] 81 mg PO DAILY #90 tab Apixaban [Eliquis] 5 mg PO BID #60 tab Discontinued Warfarin [Coumadin] 2.5 mg PO DAILY Aspirin [Adult Low Dose Aspirin EC] 162 mg PO DAILY@0700 No Action Multivitamins, Thera [Multivitamin (formulary)] 1 tab PO DAILY@0700 Ubidecarenone [Co Q-10] 200 mg PO DAILY@1300 lisinopriL [Prinivil] 10 mg PO DAILY #90 tab Furosemide [Lasix] 40 mg PO DAILY 90 Days #90 tab Amiodarone [Cordarone] 200 mg PO DAILY Ferrous Sulfate [Iron (65 MG Elemental)] 325 mg PO HS Lovastatin [Mevacor] 60 mg PO DAILY@1300 metFORMIN HCL [Glucophage] 500 mg PO DAILY@1200 Sennosides-Docusate Sodium [Senokot-S] 1 tab PO HS 30 Days #30 tablet Metoprolol Succinate (ER) [Toprol Xl] 25 mg PO DAILY Unk Preservision 2 tab PO DAILY Discharge Medication List Multivitamins, Thera [Multivitamin (formulary)] 1 tab PO DAILY@0700 05/05/15 [History] Ubidecarenone [Co Q-10] 200 mg PO DAILY@1300 03/09/19 [History] Ferrous Sulfate [Iron (65 MG Elemental)] 325 mg PO HS 09/27/21 [History] Lovastatin [Mevacor] 60 mg PO DAILY@1300 09/27/21 [History] metFORMIN HCL [Glucophage] 500 mg PO DAILY@1200 09/27/21 [History] lisinopriL [Prinivil] 10 mg PO DAILY #90 tab 10/01/21 [Rx] Furosemide [Lasix] 40 mg PO DAILY 90 Days #90 tab 10/02/21 [Rx] Sennosides-Docusate Sodium [Senokot-S] 1 tab PO HS 30 Days #30 tablet 10/31/21 [Rx] Amiodarone [Cordarone] 200 mg PO DAILY 11/15/21 [History] Metoprolol Succinate (ER) [Toprol Xl] 25 mg PO DAILY 11/15/21 [History] Unk Preservision 2 tab PO DAILY 11/15/21 [History] Aspirin EC [Ecotrin Low Dose] 81 mg PO DAILY #90 tab 11/19/21 [Rx] Apixaban [Eliquis] 5 mg PO BID #60 tab 11/20/21 [Rx]
[2021-11-20 12:50] LABS: Glucose,Whole Blood 113 mg/dL (70-110)
[2021-11-20] MEDS: metFORMIN 500 MG TAB PO SCH (13:10)
[2021-11-20] MEDS: ATORVASTATIN 10 MG TAB PO SCH (13:10)
[2021-11-20] MEDS: lisinopriL 5 MG TAB PO SCH ×2 (13:10→15:11)
[2021-11-20] MEDS: FERROUS SULFATE 325 MG TAB PO SCH (20:08)
--- NOTE | 2021-11-21 08:29 | XR ---
EXAMINATION TYPE: XR chest 2V DATE OF EXAM: 11/21/2021 COMPARISON: 09/28/2021 INDICATION: Abnormal lung sounds TECHNIQUE: Frontal and lateral views of the chest are obtained. FINDINGS: The heart size is normal. The pulmonary vasculature is normal. There is a small left pleural effusion. Pleural plaquing is present bilaterally, stable.. IMPRESSION: 1. Small left pleural effusion and left basilar infiltrate. Correlate for atelectasis and pneumonia. 2. Chronic appearing pleural plaquing present bilaterally.
[2021-11-21 08:39] VITALS: BP 93/55; RESP 18; TEMP 97.6
[2021-11-21] MEDS: FUROSEMIDE 40 MG TAB PO SCH (09:33)
[2021-11-21] MEDS: METOPROLOL SUCCINATE (ER) 25 MG TAB.ER.24H PO SCH (09:33)
[2021-11-21] MEDS: APIXABAN 5 MG TAB PO SCH (09:33)
[2021-11-21] MEDS: AMIODARONE 200 MG TAB PO SCH (09:33)
--- NOTE | 2021-11-21 12:25 | P.DS ---
Providers Attending physician: Stephan Crabtree Primary care physician: [facility] Course: Patient is resting comfortably in bed However with mild exertion he becomes hypoxic below 90% pulse ox He complains of being weak and his blood pressure is in the high 90s therefore I have discontinued lisinopril completely No chest discomfort He states his breathing is a lot better than when he was in atrial flutter now he is in sinus rhythm Afebrile 97.6F pulse rate in the 60s and 70s respiratory rate 16-18 Blood pressure 92-5 mmHg Course crackles in bilateral lungs Heart sounds are regular No murmurs No lower extremity edema No JVD Chest x-ray was reviewed by me. Increased lung markings consistent with interstitial fibrosis Patient has a history of asbestos exposure and asbestosis implant this explains his hypoxia He also has severe cardio myopathy that is worsened by the tachycardia Currently he is on 200 mg by mouth daily of amiodarone Given his history of asbestosis and the x-ray that I reviewed today I would prefer not to continue amiodarone in the long run I would recommend permanent pacemaker implantation with biventricular pacing followed by AV node ablation Thereafter. Oral amiodarone He is also being discharged home on ELIQUIS 5 mg twice daily Warfarin is on hold We had a very difficult time maintaining his INRs on warfarin His INRs ranged from greater than 5 to less than 2, fluctuating widely Plan Discharge home after determining need for home oxygen Continue ELIQUIS 5 mg twice daily Hold warfarin Continue Toprol-XL 25 mg by mouth daily Hold lisinopril Continue statins Continue other cardiac medications Follow-up Dr. Crabtree in 2 weeks Plan - Discharge Summary Discharge Rx Participant: No New Discharge Prescriptions: New Aspirin EC [Ecotrin Low Dose] 81 mg PO DAILY #90 tab Apixaban [Eliquis] 5 mg PO BID #60 tab Discontinued Warfarin [Coumadin] 2.5 mg PO DAILY Aspirin [Adult Low Dose Aspirin EC] 162 mg PO DAILY@0700 lisinopriL [Prinivil] 10 mg PO DAILY #90 tab No Action Multivitamins, Thera [Multivitamin (formulary)] 1 tab PO DAILY@0700 Ubidecarenone [Co Q-10] 200 mg PO DAILY@1300 Furosemide [Lasix] 40 mg PO DAILY 90 Days #90 tab Amiodarone [Cordarone] 200 mg PO DAILY Ferrous Sulfate [Iron (65 MG Elemental)] 325 mg PO HS Lovastatin [Mevacor] 60 mg PO DAILY@1300 metFORMIN HCL [Glucophage] 500 mg PO DAILY@1200 Sennosides-Docusate Sodium [Senokot-S] 1 tab PO HS 30 Days #30 tablet Metoprolol Succinate (ER) [Toprol Xl] 25 mg PO DAILY Unk Preservision 2 tab PO DAILY Discharge Medication List Multivitamins, Thera [Multivitamin (formulary)] 1 tab PO DAILY@0700 05/05/15 [History] Ubidecarenone [Co Q-10] 200 mg PO DAILY@1300 03/09/19 [History] Ferrous Sulfate [Iron (65 MG Elemental)] 325 mg PO HS 09/27/21 [History] Lovastatin [Mevacor] 60 mg PO DAILY@1300 09/27/21 [History] metFORMIN HCL [Glucophage] 500 mg PO DAILY@1200 09/27/21 [History] Furosemide [Lasix] 40 mg PO DAILY 90 Days #90 tab 10/02/21 [Rx] Sennosides-Docusate Sodium [Senokot-S] 1 tab PO HS 30 Days #30 tablet 10/31/21 [Rx] Amiodarone [Cordarone] 200 mg PO DAILY 11/15/21 [History] Metoprolol Succinate (ER) [Toprol Xl] 25 mg PO DAILY 11/15/21 [History] Unk Preservision 2 tab PO DAILY 11/15/21 [History] Aspirin EC [Ecotrin Low Dose] 81 mg PO DAILY #90 tab 11/19/21 [Rx] Apixaban [Eliquis] 5 mg PO BID #60 tab 11/20/21 [Rx]
[2021-11-21 12:30] LABS: Glucose,Whole Blood 127 mg/dL (70-110)
[2021-11-21] MEDS: metFORMIN 500 MG TAB PO SCH (13:25)
[2021-11-21] MEDS: ATORVASTATIN 10 MG TAB PO SCH (13:25)
--- NOTE | 2021-11-21 14:01 | P.PN ---
Progress Note - Text Progress Note Date: 11/21/21 Patient O2 saturation 87% on room air while ambulating. He will require home oxygen the time of discharge due to his history of CHF and asbestos exposure.
[2021-11-21 14:41] VITALS: PULSE 87
[2021-11-21 14:58] LABS: Basophils # (A) 0.02 X 10*3/uL (0.00-0.10); Basophils % (A) 0.2 %; Eosinophils # (A) 0.09 X 10*3/uL (0.04-0.35); HCT 32.8 % (39.6-50.0); HGB 9.9 g/dL (13.0-17.0); Immature Grans, Automated 0.3 %; Lymphocytes # (A) 0.94 X 10*3/uL (0.90-5.00); Lymphocytes % (A) 10.5 %; MCH 27.3 pg (27.0-32.0); MCHC 30.2 g/dL (32.0-37.0); MCV 90.4 fL (80.0-97.0); Mean Platelet Volume 11.8 fL (9.5-12.2); Monocytes # (A) 0.64 X 10*3/uL (0.20-1.00); Monocytes % (A) 7.2 %; NRBC Per 100 WBC 0 /100 WBCS (0.0-0.0); Neutrophils % (A) 80.8 %; Platelet Count 211 X 10*3/uL (140-440); RBC 3.63 X 10*6/uL (4.40-5.60); RDW 16.4 % (11.5-14.5); WBC 8.92 X 10*3/uL (4.50-10.00)
[2021-11-21 17:19] LABS: African American GFR (CKD) 69.6 (60.0-200.0); Albumin 3.8 g/dL (3.8-4.9); Albumin/Globulin Ratio 1.52 (1.60-3.17); Anion Gap 13.9 mmol/L (10.00-18.00); BUN/Creat Ratio 28.64 Ratio (12.00-20.00); Blood Urea Nitrogen 31.5 mg/dL (9.0-27.0); Calcium 8.9 mg/dL (8.7-10.3); Carbon Dioxide 26.1 mmol/L (20.0-27.5); Globulin 2.5 g/dL (1.6-3.3); Potassium 4.6 mmol/L (3.5-5.5); Total Bilirubin 0.5 mg/dL (0.30-1.20); Total Protein 6.3 g/dL (6.2-8.2)
== END 2021-11-21 16:18 | disposition home or self-care (01) ==
LOC: CATHEP 07:50 → 6NMEDSUR 12:30 → CATHEP 11-21 16:18
PROVIDERS: ATTEND Internal Medicine Clinical Cardiac Electrophysiology
DX: I48.19 Other persistent atrial fibrillation (principal); I25.10 Atherosclerotic heart disease of native coronary artery without angina pectoris; I44.7 Left bundle-branch block, unspecified; I25.5 Ischemic cardiomyopathy
CPT/HCPCS: 97110; 97162; 92960; 93662; 93653; 80053; 85025 ×2; 85610; 87635; 71046; C1894; C1769 ×2; C1760; C1766; C1730; C1759; C1732; J2001; J1644 ×2

== ENCOUNTER → 2022-03-11 | Outpatient (CLI) | payer MEDICARE ==
[2022-03-11 15:38] LABS: Basophils # (A) 0.03 X 10*3/uL (0.00-0.10); Basophils % (A) 0.4 %; Eosinophils # (A) 0.26 X 10*3/uL (0.04-0.35); Eosinophils % (A) 3.2 %; HCT 33.9 % (39.6-50.0); HGB 10.7 g/dL (13.0-17.0); Immature Grans, Automated 0.4 %; Lymphocytes # (A) 1.74 X 10*3/uL (0.90-5.00); Lymphocytes % (A) 21.3 %; MCH 27.6 pg (27.0-32.0); MCHC 31.6 g/dL (32.0-37.0); MCV 87.6 fL (80.0-97.0); Mean Platelet Volume 10.9 fL (9.5-12.2); Monocytes # (A) 0.57 X 10*3/uL (0.20-1.00); NRBC Per 100 WBC 0 /100 WBCS (0.0-0.0); Neutrophils # (A) 5.54 X 10*3/uL (1.80-7.70); Neutrophils % (A) 67.7 %; Platelet Count 231 X 10*3/uL (140-440); RBC 3.87 X 10*6/uL (4.40-5.60); RDW 14.9 % (11.5-14.5); WBC 8.17 X 10*3/uL (4.50-10.00)
[2022-03-11 15:53] LABS: Anion Gap 10.3 mmol/L (10.00-18.00); BUN/Creat Ratio 21.87 Ratio (12.00-20.00); Blood Urea Nitrogen 23.4 mg/dL (9.0-27.0); Calcium 9.6 mg/dL (8.7-10.3); Carbon Dioxide 29.1 mmol/L (20.0-27.5); Non-African American GFR(CKD) 62.1 (60.0-200.0); Potassium 4.8 mmol/L (3.5-5.5)
== END | disposition home or self-care (01) ==
LOC: LABPAT 10:16
PROVIDERS: ATTEND Orthopaedic Surgery
DX: Z01.812 Encounter for preprocedural laboratory examination (principal); Z01.818 Encounter for other preprocedural examination; G56.01 Carpal tunnel syndrome, right upper limb
CPT/HCPCS: 80048; 85025

== ENCOUNTER 2022-03-29 10:24 | Day surgery (SDC) | payer MEDICARE ==
--- NOTE | 2022-03-28 11:12 | P.HPOR ---
History of Present Illness H&P Date: 03/28/22 Chief Complaint: Right hand pain and numbness The patient's 86-year-old male presents with progressive right hand pain and numbness for the past several years worsening recently. He has tried bracing and medications. He notes weakness with gripping and grasping. Review of Systems As per HPI Past Medical History Past Medical History: Atrial Fibrillation, Coronary Artery Disease (CAD), Heart Failure, Diabetes Mellitus, Hyperlipidemia, Hypertension, Osteoarthritis (OA), Skin Disorder Additional Past Medical History / Comment(s): PSORIASIS controlled,HX- DIVERTICULITIS, HEMORRHOIDS, POLYPS (BENIGN), leaky heart valve, murmur, hx gout, chronic lower back tightens and mild pain, pt now on metformin borderlin diabetic per pt, occasional reflux History of Any Multi-Drug Resistant Organisms: None Reported Past Surgical History: Ablation, Appendectomy, Cardiac Ablation, Cholecystectomy, Heart Catheterization With Stent, Joint Replacement, Orthopedic Surgery, Tonsillectomy Additional Past Surgical History / Comment(s): 05-09-15 EP STUDY and ablation, other past medical hx includes: LEFT KNEE REPLACEMENT, AUGUSTO CATARACT removed, bilateral lens implants, HEART CATH X1 STENT 2005, SEVERAL COLONOSCOPIES, RT ANKLE ORIF HAS [address] WITH FUSION- 4 pins removed. Past Anesthesia/Blood Transfusion Reactions: No Reported Reaction, Motion Sickness Additional Past Anesthesia/Blood Transfusion Reaction / Comment(s): no blood transfusion Date of Last Stent Placement:: 2005 Smoking Status: Former smoker - Past Family History Father Family Medical History: Cancer Additional Family Medical History / Comment(s): brain?lung Brother(s) Family Medical History: Cancer Additional Family Medical History / Comment(s): ONE WITH LUNG CA, ONE WITH COLON CA Medications and Allergies Home Medications Medication Instructions Recorded Confirmed Type Multivitamins, Thera [Multivitamin 1 tab PO DAILY@0700 05/05/15 03/27/22 History (formulary)] Ubidecarenone [Co Q-10] 200 mg PO DAILY@1300 03/09/19 03/27/22 History Ferrous Sulfate [Iron (65 MG 325 mg PO HS 09/27/21 03/27/22 History Elemental)] Lovastatin [Mevacor] 60 mg PO DAILY@1300 09/27/21 03/27/22 History metFORMIN HCL [Glucophage] 500 mg PO DAILY@1200 09/27/21 03/27/22 History Sennosides-Docusate Sodium 1 tab PO HS 30 Days #30 tablet 10/31/21 03/27/22 Rx [Senokot-S] Amiodarone [Cordarone] 200 mg PO DAILY 11/15/21 03/27/22 History Metoprolol Succinate (ER) [Toprol 25 mg PO DAILY 11/15/21 03/27/22 History Xl] Unk Preservision 2 tab PO DAILY 11/15/21 03/27/22 History Aspirin EC [Ecotrin Low Dose] 81 mg PO DAILY #90 tab 11/19/21 03/27/22 Rx Apixaban [Eliquis] 5 mg PO BID #60 tab 11/20/21 03/27/22 Rx Furosemide [Lasix] 40 mg PO 1400 03/27/22 03/27/22 History Allergies Allergy/AdvReac Type Severity Reaction Status Date / Time No Known Allergies Allergy Verified 03/27/22 14:36 Physical Examination - Wrist & Hand right Symptoms: tingling in thumb, index, long fingers Appearance: other (Significant thenar atrophy) ROM: wrist flexion: 50 degrees ROM: wrist extension: 60 degrees Tests: Tinel's sign median nerve: positive, carpal tunnel tests: positive Results The patient is a well-developed well-nourished male approximately 5 foot 7, 174 pounds of mesomorphic had his. HEENT exam is nonfocal, neck is supple. He is nontender about the right shoulder and elbow. Abductor pollicis brevis strength on the right 4 -/5. EMG report right upper extremity showed evidence of severe carpal tunnel syndrome. Assessment and Plan Assessment: Severe right carpal tunnel syndrome History of heart disease on anticoagulation History of peripheral vascular disease Plan: I talked to the patient regarding his condition along with treatment options. At this point he remains quite symptomatic despite attempted conservative measures. After a thorough discussion, he opted to proceed with surgery. We w ill plan to proceed with right carpal tunnel release utilizing local anesthetic and IV sedation. Risks and benefits were discussed at length in layman's terms. We will reinstitute his Eliquis postoperatively.
[~2022-03-29 10:24] MED LIST changes: +DEXAMETHASONE SOD PHOSPHATE 4 MG/ML 1 ML VIAL IV ONE; +HYDROmorphone 0.5 MG/0.5 ML SYRINGE IVP PRN; +LIDOCAINE 1% (10MG/ML) FOR IV START INTRADERMA PRN; +ONDANSETRON 4 MG/2 ML VIAL IVP ONE; -SODIUM CHLORIDE 0.9% 1,000 ML IV SCH
[2022-03-29 10:48] VITALS: TEMP 97.4
[2022-03-29 10:55] LABS: Glucose,Whole Blood 102 mg/dL (70-110)
[2022-03-29] MEDS ORDERED: PROPOFOL 10 MG/ML 20 ML VIAL IV ONE (12:19)
[2022-03-29] MEDS ORDERED: BUPIVACAINE (PF) 0.25% 30 ML VIAL SQ ONE (12:19)
--- NOTE | 2022-03-29 12:45 | P.OP ---
Date of Procedure: 03/29/22 Preoperative Diagnosis: Right carpal tunnel syndrome Postoperative Diagnosis: Same Procedure(s) Performed: Right carpal tunnel release Anesthesia: MAC, local Surgeon: Francisco Gillespie Estimated Blood Loss (ml): 1 Pathology: none sent Condition: stable Disposition: PACU Indications for Procedure: The patient's and 86-year-old male presents with progressive right hand pain and numbness secondary to carpal tunnel syndrome despite conservative measures. A discussion of the risks and benefits of operative intervention versus continued conservative measures was made with patient. He opted to proceed with surgery. Operative risks to include infection, neurovascular injury, development of blood clots, possible incomplete resolution of symptoms, possible recurrence and need for subsequent procedures was discussed. Informed consent was obtained. Operative Findings: As below Description of Procedure: The patient was brought to the operating room, and after induction of IV sedation the right upper extremity was prepped and draped in normal fashion. The proposed incision site was outlined skin marker in line with the radial aspect the fourth ray extending from the volar wrist crease distally 2-1/2 cm. One quarter percent plain Marcaine was injected into the proposed incision site. 9 mL was utilized. The tourniquet was inflated to 250 mmHg. The skin incision was then made. The skin was incised sharply. Subcutaneous tissues were divided sharply the superficial palmar fascia was identified and split in line with the skin incision. The transverse carpal ligament was identified and transected under direct visualization distally to level the palmar fat pad. Proximal was taken level of the volar wrist crease. A plane above and below the transverse carpal ligament was then bluntly developed with tenotomies. The confluence of the distal forearm fascia and the transverse carpal ligament was then transected under direct visualization proximally with the tines pointed in the ulnar direction. I felt this was adequate proximal release. Neural lysis was not performed. The wound was irrigated with normal saline. Electrocautery was used for hemostasis. The skin was reapproximated with simple 3-0 nylon sutures. A sterile dressing was applied. The tourniquet was deflated with less than 15 minutes total tourniquet time. Patient was awoken from sedation and transferred to the recovery room in good condition. Blood loss was estimated 1 mL. No complications were incurred. Sponge and needle counts were correct at the end the case.
[2022-03-29 13:25] VITALS: BP 137/71; PULSE 63; RESP 18
== END 2022-03-29 13:35 | disposition home or self-care (01) ==
LOC: OR 10:24
PROVIDERS: ATTEND Orthopaedic Surgery
DX: G56.01 Carpal tunnel syndrome, right upper limb (principal); I48.91 Unspecified atrial fibrillation; I11.0 Hypertensive heart disease with heart failure; E78.5 Hyperlipidemia, unspecified; M19.90 Unspecified osteoarthritis, unspecified site; E11.36 Type 2 diabetes mellitus with diabetic cataract; E11.51 Type 2 diabetes mellitus with diabetic peripheral angiopathy without gangrene; Z90.49 Acquired absence of other specified parts of digestive tract; Z79.899 Other long term (current) drug therapy; Z98.890 Other specified postprocedural states; Z87.19 Personal history of other diseases of the digestive system; Z87.891 Personal history of nicotine dependence; Z80.1 Family history of malignant neoplasm of trachea, bronchus and lung; Z79.84 Long term (current) use of oral hypoglycemic drugs
CPT/HCPCS: 64721; J1100; J0690; J2405; J2704

== ENCOUNTER 2023-09-20 13:00 | Emergency (ER) | payer MEDICARE ==
[2023-09-20 13:23] VITALS: RESP 18; TEMP 97.7
--- NOTE | 2023-09-20 13:25 | ED ---
Abdominal Pain HPI - General Chief Complaint: Abdominal Pain Stated Complaint: Anal bleeding Time Seen by Provider: 09/20/23 13:10 Source: patient, RN notes reviewed Mode of arrival: wheelchair Limitations: no limitations - History of Present Illness Initial Comments: 87-year-old male presenting with lower abdominal pain since this morning. States he woke up and felt as though he had to have a bowel movement. He reports he was straining while trying to have the bowel movement and was unsuccessful in passing the bowel movement. He reports he noticed a small amount of blood on the toilet paper mixed with the stool when he wiped. He reports on the way here he leaked a small amount of stool in the car. Denies any other symptoms such as fevers or vomiting. He took a MiraLAX before arrival to the ER with no success. He reports he had hemorrhoids several years ago and has had issues with constipation here and there for the past few years. - Related Data Home Medications Medication Instructions Recorded Confirmed Multivitamins, Thera [Multivitamin 1 tab PO DAILY@0700 05/05/15 03/27/22 (formulary)] Ubidecarenone [Co Q-10] 200 mg PO DAILY@1300 03/09/19 03/27/22 Ferrous Sulfate [Iron (65 MG 325 mg PO HS 09/27/21 03/29/22 Elemental)] Lovastatin [Mevacor] 60 mg PO DAILY@1300 09/27/21 03/29/22 metFORMIN HCL [Glucophage] 500 mg PO DAILY@1200 09/27/21 03/29/22 Amiodarone [Cordarone] 200 mg PO DAILY 11/15/21 03/29/22 Metoprolol Succinate (ER) [Toprol 25 mg PO DAILY 11/15/21 03/29/22 Xl] Unk Preservision 2 tab PO DAILY 11/15/21 03/27/22 Furosemide [Lasix] 40 mg PO 1400 03/27/22 03/29/22 Previous Rx's Medication Instructions Recorded Sennosides-Docusate Sodium 1 tab PO HS 30 Days #30 tablet 10/31/21 [Senokot-S] Aspirin EC [Ecotrin Low Dose] 81 mg PO DAILY #90 tab 11/19/21 Apixaban [Eliquis] 5 mg PO BID #60 tab 11/20/21 Allergies Allergy/AdvReac Type Severity Reaction Status Date / Time No Known Allergies Allergy Verified 09/20/23 13:05 Review of Systems ROS Statement: Those systems with pertinent positive or pertinent negative responses have been documented in the HPI. ROS Other: All systems not noted in ROS Statement are negative. Past Medical History Past Medical History: Atrial Fibrillation, Coronary Artery Disease (CAD), Heart Failure, Diabetes Mellitus, Hyperlipidemia, Hypertension, Osteoarthritis (OA), Skin Disorder Additional Past Medical History / Comment(s): PSORIASIS controlled,HX- DIVERTICULITIS, HEMORRHOIDS, POLYPS (BENIGN), leaky heart valve, murmur, hx gout, chronic lower back tightens and mild pain, pt now on metformin borderlin diabetic per pt, occasional reflux History of Any Multi-Drug Resistant Organisms: None Reported Past Surgical History: Ablation, Appendectomy, Cardiac Ablation, Cholecystectomy, Heart Catheterization With Stent, Joint Replacement, Orthopedic Surgery, Tonsillectomy Additional Past Surgical History / Comment(s): 05-09-15 EP STUDY and ablation, other past medical hx includes: LEFT KNEE REPLACEMENT, AUGUSTO CATARACT removed, bilateral lens implants, HEART CATH X1 STENT 2005, SEVERAL COLONOSCOPIES, RT ANKLE ORIF HAS [address] WITH FUSION- 4 pins removed. Past Anesthesia/Blood Transfusion Reactions: No Reported Reaction, Motion Sickness Additional Past Anesthesia/Blood Transfusion Reaction / Comment(s): no blood transfusion Date of Last Stent Placement:: 2005 Past Psychological History: No Psychological Hx Reported Smoking Status: Former smoker Past Alcohol Use History: None Reported Past Drug Use History: None Reported - Past Family History Father Family Medical History: Cancer Additional Family Medical History / Comment(s): brain?lung Brother(s) Family Medical History: Cancer Additional Family Medical History / Comment(s): ONE WITH LUNG CA, ONE WITH COLON CA General Exam Limitations: no limitations General appearance: alert, in no apparent distress Respiratory exam: Present: normal lung sounds bilaterally. Absent: respiratory distress, wheezes, rales, rhonchi, stridor Cardiovascular Exam: Present: regular rate, normal rhythm, normal heart sounds. Absent: systolic murmur, diastolic murmur, rubs, gallop, clicks GI/Abdominal exam: Present: soft, normal bowel sounds. Absent: distended, tenderness, guarding, rebound, rigid Rectal exam: Present: normal inspection, normal rectal tone. Absent: fecal impaction (Examination negative for hemorrhoids or fissures. No blood noted.), hemorrhoids Extremities exam: Present: normal inspection, full ROM, normal capillary refill. Absent: tenderness, pedal edema, joint swelling, calf tenderness Neurological exam: Present: alert, oriented X3, CN II-XII intact Psychiatric exam: Present: normal affect, normal mood Skin exam: Present: warm, dry, intact, normal color. Absent: rash Course Vital Signs 09/20/23 09/20/23 13:01 15:27 Temperature 97.7 F Pulse Rate 59 L 76 Respiratory 18 18 Rate Blood Pressure 153/81 137/75 O2 Sat by Pulse 97 98 Oximetry Medical Decision Making - Medical Decision Making Was pt. sent in by a medical professional or institution (, PA, SCRATCH FINISHER, urgent care, hospital, or alf...) When possible be specific @ -No Did you speak to anyone other than the patient for history (EMS, parent, family, police, friend...)? What history was obtained from this source @ -No Did you review nursing and triage notes (agree or disagree)? Why? @ -I reviewed and agree with nursing and triage notes Were old charts reviewed (outside hosp., previous admission, EMS record, old EKG, old radiological studies, urgent care reports/EKG's, alf records)? Report findings @ -No old charts were reviewed Differential Diagnosis (chest pain, altered mental status, abdominal pain women, abdominal pain men, vaginal bleeding, weakness, fever, dyspnea, syncope, headache, dizziness, GI bleed, back pain, seizure, CVA, palpatations, mental health, musculoskeletal)? @ -Differential Abdominal Pain Men: Appendicitis, cholecystitis, diverticulosis, ischemic bowel, pancreatitis, hepatitis, UTI, gastroenteritis, AAA, incarcerated hernia, bowel obstruction, constipation, inflammatory bowel, hepatitis, peptic ulcer disease, splenic infarction, perforated viscus, testicular torsion, this is not meant to be an all-inclusive list EKG interpreted by me (3pts min.). @ -None X-rays interpreted by me (1pt min.). @ -X-ray reveals nonspecific abdomen without free air or obstruction. There is severe degenerative disc disease in lumbar spine and mild degenerative disease in hips bilaterally CT interpreted by me (1pt min.). @ -None done U/S interpreted by me (1pt. min.). @ -None done What testing was considered but not performed or refused? (CT, X-rays, U/S, labs)? Why? @ -Lab work not performed due to patient's pain and symptoms are consistent with constipation What meds were considered but not given or refused? Why? @ -None Did you discuss the management of the patient with other professionals (professionals i.e. Dr., PA, SCRATCH FINISHER, lab, RT, psych nurse, social work associate, welder explosion, teacher, sewage reticulation drafting officer, lead case manager)? Give summary @ -No Was smoking cessation discussed for >3mins.? @ -No Was critical care preformed (if so, how long)? @ -No Were there social determinants of health that impacted care today? How? (Homelessness, low income, unemployed, alcoholism, drug addiction, transportation, low edu. Level, literacy, decrease access to med. care, shelter, rehab)? @ -No Was there de-escalation of care discussed even if they declined (Discuss DNR or withdrawal of care, Hospice)? DNR status @ -No What co-morbidities impacted this encounter? (DM, HTN, Smoking, COPD, CAD, Cancer, CVA, ARF, Chemo, Hep., AIDS, mental health diagnosis, sleep apnea, morbid obesity)? @ -None Was patient admitted / discharged? Hospital course, mention meds given and route, prescriptions, significant lab abnormalities, going to OR and other pertinent info. @ -Patient was discharged. Patient was seen and evaluated for lower abdominal pain since today with constipation. Patient reports small amount of blood on the toilet paper after straining to have a bowel movement. Patient is nontender upon palpation. Rectal exam is negative for hemorrhoids or fissures. KUB reveals nonspecific abdomen without free air or obstruction. Enema administered and small amount of stool was passed. Patient reports abdominal pain is resolved. Abdomen remains nontender upon reexamination. Constipation discussed with patient and supportive care discussed including stool softeners and high- fiber diet. Strict return/alarm symptoms discussed with patient in detail and he shows understanding and agrees to plan. Advised to follow-up with PCP in 1 to 3 days. Patient discharged in stable condition. Case discussed with Dr. Urbina. Undiagnosed new problem with uncertain prognosis? @ -No Drug Therapy requiring intensive monitoring for toxicity (Heparin, Nitro, Insulin, Cardizem)? @ -No Were any procedures done? @ -Enema was administered with no complications Diagnosis/symptom? @ -Constipation Acute, or Chronic, or Acute on Chronic? @ -Acute Uncomplicated (without systemic symptoms) or Complicated (systemic symptoms)? @ -Uncomplicated Side effects of treatment? @ -No Exacerbation, Progression, or Severe Exacerbation? @ -No Poses a threat to life or bodily function? How? (Chest pain, [place], [place], pneumonia, PE, COPD, DKA, ARF, appy, cholecystitis, CVA, Diverticulitis, Homicidal, Suicidal, threat to staff... and all critical care pts) @ -Low likelihood Disposition Clinical Impression: Constipation Disposition: HOME SELF-CARE Condition: Stable Instructions (If sedation given, give patient instructions): Constipation (ED) Additional Instructions: Continue to take stool softeners as needed and practice high-fiber diet. Please return to the Emergency Department if symptoms worsen or any other concerns. Is patient prescribed a controlled substance at d/c from ED?: No Referrals: David Olson MD [Primary Care Provider] - 1-2 days Time of Disposition: 16:43
--- NOTE | 2023-09-20 13:46 | XR ---
KUB. HISTORY: Abdominal pain. COMPARISON: None. TECHNIQUE: 2 upright views of the abdomen were obtained. FINDINGS: The lung bases are clear. There is no free intraperitoneal air beneath the diaphragm. The bowel gas pattern is nonspecific and there is no evidence of obstruction. No suspicious abdominal or pelvic calcifications are seen. Severe degenerative disc disease throughout the lumbar region with mild scoliosis. Mild degeneration of the hips bilaterally. Status post cholecystectomy IMPRESSION: 1. Nonspecific abdomen without evidence of free air or obstruction. 2. Cholecystectomy. 3. Severe degenerative disease in lumbar spine with scoliosis and mild degeneration of the hips bilat erally.
[2023-09-20 15:48] VITALS: BP 137/75; PULSE 76
== END 2023-09-20 17:03 | disposition home or self-care (01) ==
LOC: EC 13:00
DX: K59.00 Constipation, unspecified (principal); M51.36 Other intervertebral disc degeneration, lumbar region; Z87.891 Personal history of nicotine dependence; Z90.49 Acquired absence of other specified parts of digestive tract
CPT/HCPCS: 74018; 99284